=== PATIENT | female | born 1955 | race Caucasian/White ===

== ENCOUNTER 2016-09-21 11:06 | Outpatient (CLI) | payer MEDICARE, MEDICAID | END 2016-09-21 11:07 | disposition home or self-care (01) | DX: B00.1 Herpesviral vesicular dermatitis (principal) ==

== ENCOUNTER 2016-09-29 | Outpatient (CLI) | payer MEDICARE, MEDICAID | END 2016-09-29 16:32 | disposition critical access hospital (66) | CPT/HCPCS: A0425; A0427 ==

== ENCOUNTER 2016-09-29 16:35 | Emergency (ER) | payer MEDICARE, MEDICAID ==
[2016-09-29] MEDS ORDERED: SODIUM CHLORIDE 0.9% 1,000 ML IV ONE (16:40)
[2016-09-29] MEDS ORDERED: MECLIZINE 12.5 MG TABLET PO STA (16:41)
[2016-09-29] MEDS ORDERED: ONDANSETRON 4 MG/2 ML VIAL IVP STA (16:41)
[2016-09-29] MEDS ORDERED: ONDANSETRON 4 MG/2 ML VIAL ONE (16:43)
[2016-09-29] MEDS ORDERED: MECLIZINE 12.5 MG TABLET PO ONE (16:44)
== END 2016-09-29 18:24 | disposition home or self-care (01) ==
DX: R42 Dizziness and giddiness (principal); R03.0 Elevated blood-pressure reading, without diagnosis of hypertension
CPT/HCPCS: 36415; 80048; 85025; 96374; 99283; 99284; A9270

== ENCOUNTER 2016-11-23 14:48 | Emergency (ER) | payer MEDICARE, MEDICAID | END 2016-11-23 16:10 | disposition left against medical advice (07) | DX: R11.0 Nausea (principal); Z53.21 Procedure and treatment not carried out due to patient leaving prior to being seen by health care provider ==

== ENCOUNTER 2017-01-16 20:24 | Emergency (ER) | payer MEDICARE, MEDICAID ==
[2017-01-16] MEDS ORDERED: HYDROcod/ACETAM 5/325 MG TABLET PO STA (21:00)
--- NOTE | 2017-01-16 21:02 | ED Physician Documentation ---
PD HPI BACK INJURY - Stated complaint Stated Complaint: GLF/BACK PX - History obtained from History obtained from: Patient - History of Present Illness Location: Other (2 days ago she slipped and fell, hitting her back directly on the edge of the step and has persistent pain in the low back, especially on the left side. It is not radiating. 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 HEENT: Tonsil/Adenoidectomy - Present Medications Home Medications: Ambulatory Orders Medication Instructions Recorded Confirmed traZODone [Desyrel] 04/07/16 Antidepress 11/23/16 HYDROcod/ACETAM 5/325 [[place] 5/325] 1 - 2 ea PO Q6H PRN #15 tablet 01/16/17 - Allergies Allergies/Adverse Reactions: Allergies Allergy/AdvReac Type Severity Reaction Status Date / Time paroxetine HCl * [From Paxil] AdvReac Intermediate "like im Verified 01/16/17 20 :29 crawling out of my skin" escitalopram oxalate * AdvReac Unknown Verified 01/16/17 20:29 [From Lexapro] - Social History Does the pt smoke?: No Smoking Status: Never smoker Does the pt drink ETOH?: No Does the pt have substance abuse?: No - Immunizations Immunizations are current?: Yes - POLST Patient has POLST: No PD ED PE NORMAL - Vitals Vital signs reviewed: Yes - General General: Alert and oriented X 3, No acute distress - Abdomen Abdomen: Soft, Non tender - Back Back: Other (She has mild midline back tenderness, more so over the left paralumbar muscles. The patient has equal and normal patellar and Achilles reflexes bilaterally. Normal sensation in all areas of the legs. Patient denies saddle anesthesia. Normal strength in flexion and extension at the ankles, knees and flexion of the hips.) - Derm Derm: Normal color, No rash Results - Vitals Vitals: Vital Signs - 24 hr 01/16/17 20:26 Temperature 36.0 C L Heart Rate 84 Respiratory 22 Rate Blood Pressure 134/74 H O2 Saturation 94 Oxygen O2 Source Room air - Rads (name of study) L spine XR Radiology: EMP read contemporaneously (PRAMOD Remy) Departure - Departure Disposition: 01 Home, Self Care Clinical Impression: Lumbar contusion Qualifiers: Encounter type: initial encounter Qualified Code(s): S30.0XXA - Contusion of lower back and pelvis, initial encounter Condition: Good Record reviewed to determine appropriate education?: Yes Instructions: ED Contusion Back Prescriptions: HYDROcod/ACETAM 5/325 [[place] 5/325] 1 - 2 ea PO Q6H PRN #15 tablet PRN Reason: Pain Comments: Call your doctor to arrange a follow up appointment. Make the next available appointment. In the interim return anytime if worse or if new symptoms develop. Your blood pressure was elevated today on check in to the emergency department. This does not mean that you have hypertension, it is a common phenomenon to check into the emergency department and have elevated blood pressure. I recommend that you see your primary care physician within the week to have it rechecked when you're feeling better.
[2017-01-16] MEDS ORDERED: HYDROcod/ACETAM 5/325 MG TABLET ONE (21:14)
--- NOTE | 2017-01-16 21:30 | XRAY Preliminary Report ---
Exam: XR Lumbar Spine 2 View IMPRESSION: Mild degenerative changes. No evidence of acute fracture. [facility] SITE ID: [id number]
--- NOTE | 2017-01-16 21:33 | XRAY Report ---
EXAM: LUMBOSACRAL SPINE RADIOGRAPHY EXAM DATE: 01/16/2017 09:16 PM. CLINICAL HISTORY: Fall back pain. COMPARISONS: MRI 05/01/2010. TECHNIQUE: 3 views. FINDINGS: Alignment: Normal. No spondylolisthesis or scoliosis. Bones: Five vzo-vlf-gcxedir lumbar vertebral bodies are present. No fractures or bone lesions. Disks: Mild degenerative disk disease. Facets: Mild facet arthropathy. Sacroiliac Joints: Unremarkable. Soft Tissues: Normal. The visualized bowel gas pattern is normal. IMPRESSION: Mild degenerative changes. No evidence of acute fracture. [facility] Referring Provider Line: [phone] SITE ID: [id number]
[2017-01-16 21:55] VITALS: BP 128/75
== END 2017-01-16 21:54 | disposition home or self-care (01) ==
LOC: ED 20:24
DX: S30.0XXA Contusion of lower back and pelvis, initial encounter (principal); W01.198A Fall on same level from slipping, tripping and stumbling with subsequent striking against other object, initial encounter; R03.0 Elevated blood-pressure reading, without diagnosis of hypertension; Z87.11 Personal history of peptic ulcer disease; M19.90 Unspecified osteoarthritis, unspecified site
CPT/HCPCS: 72100; 99283; A9270

== ENCOUNTER 2017-03-09 21:26 | Emergency (ER) | payer MEDICARE, MEDICAID ==
--- NOTE | 2017-03-09 23:12 | ED Physician Documentation ---
PD HPI HEADACHE - Stated complaint Stated Complaint: HEADACHE - Chief complaint Chief Complaint: Neuro - History obtained from History obtained from: Patient - History of Present Illness Timing - onset: Yesterday Timing - onset during: Rest Timing - duration: Days Timing - details: Gradual onset, Still present, Waxing and waning, Still present in ED Pain level now: 8 Worst headache ever?: No: Worst headache ever? Location: Front, Back, Right Quality: Throbbing, Aching Associated symptoms: No: Fever, Stiff neck, Nausea, Vomiting, Weakness, Numbness , Syncope, Seizure, Eye pain, Vision changes, Other Improved by: Rest, Dark room Worsened by: Light, Noise Similar symptoms before: Diagnosis (has had similar headaches before, but she does not recall having the actual diagnosis of migraine heqdaches) Recently seen: Not recently seen Review of Systems Constitutional: denies: Fever Eyes: reports: Reviewed and negative Cardiac: reports: Reviewed and negative Respiratory: reports: Reviewed and negative GI: denies: Abdominal Pain, Abdominal Swelling, Nausea : denies: Dysuria, Frequency Neurologic: reports: Seizure, Headache. 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 HEENT: Tonsil/Adenoidectomy - Present Medications Home Medications: Ambulatory Orders Medication Instructions Recorded Confirmed traZODone [Desyrel] 50 mg PO DAILY 04/07/16 03/09/17 Antidepress 11/23/16 Butalbit/Acetamin/Caff/Codeine 1 each PO Q6HR PRN #14 capsule 03/10/17 [Ezrwip-Jahmgzuefll-Vwzx-Codein] - Allergies Allergies/Adverse Reactions: Allergies Allergy/AdvReac Type Severity Reaction Status Date / Time paroxetine HCl * [From Paxil] AdvReac Intermediate "like im Verified 01/16/17 20 :29 crawling out of my skin" escitalopram oxalate * AdvReac Unknown Verified 01/16/17 20:29 [From Lexapro] - Social History Does the pt smoke?: No Smoking Status: Never smoker Does the pt drink ETOH?: No Does the pt have substance abuse?: No - Immunizations Immunizations are current?: Yes - POLST Patient has POLST: No PD ED PE NORMAL - Vitals Vital signs reviewed: Yes - General General: Alert and oriented X 3, No acute distress, Well developed/nourished - HEENT HEENT: PERRL, EOMI, Moist mucous membranes - Neck Neck: Supple, no meningeal sign - Cardiac Cardiac: RRR, No murmur - Respiratory Respiratory: No respiratory distress, Clear bilaterally - Abdomen Abdomen: Soft, Non tender - Neuro Neuro: Alert and oriented X 3, live in companion 2-12 intact, No motor deficit, No sensory deficit, Normal speech GCS Score: 15 Results - Vitals Vitals: Oxygen O2 Source Room air - Rads (name of study) CT H Radiology: Prelim report reviewed, See rad report PD MEDICAL DECISION MAKING - ED course Complexity details: reviewed old records, reviewed results, re-evaluated patient , considered differential, d/w patient ED course: per previous visit for TALAMANTES, patient had good result with DHE. this was given to her in ED with subsequent resolution kf her headache. Departure - Departure Disposition: 01 Home, Self Care Clinical Impression: Headache Condition: Good Instructions: ED Cephalgia Unspecified Follow-Up: Gilberto Milner MD [Primary Care Provider] - Within 1 week Prescriptions: Butalbit/Acetamin/Caff/Codeine [Audvsm-Ywioiyrfmkp-Ezox-Codein] 1 each PO Q6HR PRN #14 capsule PRN Reason: Headache Discharge Date/Time: 03/10/17 01:25
[2017-03-09] MEDS ORDERED: ONDANSETRON ODT 4 MG TABLET TL STA (23:24)
[2017-03-09] MEDS ORDERED: DIHYDROERGOTAMINE 1 MG/ML AMP IM STA (23:24)
[2017-03-09] MEDS ORDERED: ONDANSETRON ODT 4 MG TABLET ONE (23:29)
[2017-03-09] MEDS ORDERED: DIHYDROERGOTAMINE 1 MG/ML AMP ONE (23:29)
[2017-03-09 23:40] VITALS: BP 136/83
== END 2017-03-10 01:25 | disposition home or self-care (01) ==
LOC: ED 21:26
DX: R51 Headache (principal); H53.149 Visual discomfort, unspecified
CPT/HCPCS: 96372; 99283; J1110; Q0162

== ENCOUNTER 2017-05-30 13:32 | Emergency (ER) | payer MEDICARE, MEDICAID ==
[2017-05-30 13:45] VITALS: BP 106/64
[2017-05-30] MEDS ORDERED: KETOROLAC 60 MG/2 ML VIAL IM STA (13:54)
--- NOTE | 2017-05-30 13:57 | ED Physician Documentation ---
PD HPI UPPER EXT INJURY - Stated complaint Stated Complaint: R ARM PX - Chief complaint Chief Complaint: Ext Problem - History obtained from History obtained from: Patient - History of Present Illness Location: Other (For the last 3-4 days without specific injury she has had pain , a shooting sharp pain of the right bicep that is worse if she bends her arm at the elbow. It is not associated with neck pain, chest pain, trouble breathing. There is no exertional component to it. 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 HEENT: Tonsil/Adenoidectomy - Present Medications Home Medications: Ambulatory Orders Medication Instructions Recorded Confirmed traZODone [Desyrel] 50 mg PO DAILY 04/07/16 05/30/17 Antidepress 11/23/16 Butalbit/Acetamin/Caff/Codeine 1 each PO Q6HR PRN #14 capsule 03/10/17 05/30/17 [Sesuja-Eygbifgfhxf-Yvmy-Codein] Cyclobenzaprine [Flexeril] 10 mg PO TID PRN #20 tablet 05/30/17 - Allergies Allergies/Adverse Reactions: Allergies Allergy/AdvReac Type Severity Reaction Status Date / Time paroxetine HCl * [From Paxil] AdvReac Intermediate "like im Verified 05/30/17 13 :45 crawling out of my skin" escitalopram oxalate * AdvReac Unknown Verified 05/30/17 13:45 [From Lexapro] - Social History Does the pt smoke?: No Smoking Status: Never smoker Does the pt drink ETOH?: No Does the pt have substance abuse?: No - Immunizations Immunizations are current?: Yes - POLST Patient has POLST: No PD ED PE NORMAL - Vitals Vital signs reviewed: Yes - General General: Alert and oriented X 3, No acute distress - Neck Neck: Supple, no meningeal sign, No bony TTP - Cardiac Cardiac: RRR, No murmur - Respiratory Respiratory: No respiratory distress, Clear bilaterally - Abdomen Abdomen: Non tender - Extremities Extremities: Other (Focal tenderness of the right bicep which is especially bad with forced extension of the right arm. 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 Normal radial pulses.) - Neuro Neuro: Alert and oriented X 3, Normal speech - Psych Psych: Normal mood, Normal affect Results - Vitals Vitals: Vital Signs - 24 hr 05/30/17 13:40 Temperature 36.1 C L Heart Rate 73 Respiratory 19 Rate Blood Pressure 106/64 O2 Saturation 98 Oxygen O2 Source Room air PD MEDICAL DECISION MAKING - ED course ED course: History and physical is very consistent consistent with right arm biceps strain. She is tender there and has pain with range of motion ruling out anginal equivalent etc. Departure - Departure Disposition: 01 Home, Self Care Clinical Impression: Strain of biceps muscle Qualifiers: Encounter type: initial encounter Laterality: right Qualified Code(s): S46.211A - Strain of muscle, fascia and tendon of other parts of biceps, right arm, initial encounter Condition: Good Record reviewed to determine appropriate education?: Yes Instructions: Strains Sprains Tx Prescriptions: Cyclobenzaprine [Flexeril] 10 mg PO TID PRN #20 tablet PRN Reason: Pain Comments: Follow-up with your doctor this week and discuss physical therapy if symptoms are persistent. Do not drink or drive while on the prescription muscle relaxer.
[2017-05-30] MEDS ORDERED: KETOROLAC 60 MG/2 ML VIAL ONE (14:03)
== END 2017-05-30 14:05 | disposition home or self-care (01) ==
LOC: ED 13:32
DX: S46.211A Strain of muscle, fascia and tendon of other parts of biceps, right arm, initial encounter (principal); X58.XXXA Exposure to other specified factors, initial encounter
CPT/HCPCS: 96372; 99283

== ENCOUNTER 2017-08-17 11:58 | Outpatient (CLI) | payer MEDICARE, MEDICAID ==
--- NOTE | 2017-08-18 15:30 | Mammography Report ---
DATE OF SERVICE: 08/17/2017 DIGITAL SCREENING MAMMOGRAM: 08/17/2017 CLINICAL INDICATION: A 62-year-old, for screening. COMPARISON: 10/2012, 02/2011, 06/2009. TECHNIQUE: Routine CC and MLO projections were obtained of the breasts. FINDINGS: The breasts demonstrate heterogeneously dense fibroglandular parenchyma bilaterally. Coarse and punctate, typically benign calcifications are present. Sebaceous cyst in the inner left breast is stable. No suspicious masses, clustered microcalcifications, or regions of architectural distortion are identified. IMPRESSION: BENIGN FINDINGS. RECOMMENDATION: ROUTINE ANNUAL SCREENING UNLESS OTHERWISE CLINICALLY INDICATED. BIRADS CATEGORY 2-BENIGN FINDINGS. STANDARD QUALIFYING STATEMENTS: 1. This examination was reviewed with the aid of Computer-Aided Detection (CAD). 2. A negative or benign imaging report should not delay biopsy if clinically suspicious findings are present. Consider surgical consultation if warranted. More than 5% of cancers are not identified by imaging. 3. Dense breasts may obscure an underlying neoplasm. TD: 08/18/2017 16:29
== END 2017-08-17 11:59 | disposition home or self-care (01) ==
LOC: DI.N 11:58
PROVIDERS: ATTEND Family Medicine
DX: Z12.31 Encounter for screening mammogram for malignant neoplasm of breast (principal)
CPT/HCPCS: 77067

== ENCOUNTER 2017-09-01 11:05 | Outpatient (CLI) | payer MEDICARE, MEDICAID | END 2017-09-01 11:06 | disposition home or self-care (01) | LOC: LAB.R 11:05 | PROVIDERS: ATTEND Physician Assistant Medical | DX: N39.0 Urinary tract infection, site not specified (principal) | CPT/HCPCS: 87086 ==

== ENCOUNTER 2017-09-05 08:03 | Emergency (ER) | payer MEDICARE, MEDICAID ==
[2017-09-05 08:40] LABS: BILIRUBIN,URINE NEGATIVE (NEGATIVE); GLUCOSE, URINE (UA) NEGATIVE (NEGATIVE); KETONES,URINE (UA) NEGATIVE (NEGATIVE); LEUKOCYTE ESTERASE, URINE TRACE (NEGATIVE); NITRITE,URINE NEGATIVE (NEGATIVE); OCCULT BLOOD,URINE NEGATIVE (NEGATIVE); PROTEIN,URINE NEGATIVE (NEGATIVE); UROBILINOGEN,URINE 0.2 (NORMAL) E.U./dL (NORMAL)
[2017-09-05 08:43] LABS: CLARITY,URINE HAZY (CLEAR)
[2017-09-05 08:58] LABS: BACTERIA,URINE Moderate /HPF (None Seen); RBC,URINE 0-5 /HPF (0-5); SQUAMOUS EPITHELIAL CELL,UR FEW Squamous (<= Few)
--- NOTE | 2017-09-05 09:09 | ED Physician Documentation ---
History of Present Illness - Stated complaint Stated Complaint: FEMALE - Chief complaint Chief Complaint: Abd Pain - Additonal information Additional information: hx from pt 62 female to ER for vaginal pain X approx 1 week no fever chills no NV no dysuria no vag bleed or dc prior lap but not a hyst states seen in clinic and dx with UTI and on macrobid and pyridium but not better no UA culture found in [place] pt states no pelvic exam in clinic Review of Systems Constitutional: denies: Fever, Chills Cardiac: denies: Chest pain / pressure Respiratory: denies: Dyspnea GI: denies: Abdominal Pain : denies: Dysuria, Discharge, Vaginal bleeding Immunocompromised: denies: Immunocompromised PD PAST MEDICAL HISTORY - Past Medical History Past Medical History: Yes Cardiovascular: None Respiratory: Pneumonia Neuro: Headache/migraine Endocrine/Autoimmune: None GI: Ulcers : None HEENT: None Psych: Depression, Anxiety Musculoskeletal: Osteoarthritis Derm: None - Past Surgical History Past Surgical History: Yes General: Other 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 HEENT: Tonsil/Adenoidectomy - Present Medications Home Medications: Ambulatory Orders Medication Instructions Recorded Confirmed Antidepress 11/23/16 Butalbit/Acetamin/Caff/Codeine 1 each PO Q6HR PRN #14 capsule 03/10/17 05/30/17 [Mdcdep-Oeibeofvtmp-Nbdi-Codein] Cyclobenzaprine [Flexeril] 10 mg PO TID PRN #20 tablet 05/30/17 metroNIDAZOLE 0.75% GEL 5 gm PV QPM #5 tube 09/05/17 - Allergies Allergies/Adverse Reactions: Allergies Allergy/AdvReac Type Severity Reaction Status Date / Time paroxetine HCl * [From Paxil] AdvReac Intermediate "like im Verified 09/05/17 08 :13 crawling out of my skin" escitalopram oxalate * AdvReac Unknown Verified 09/05/17 08:13 [From Lexapro] - Social History Does the pt smoke?: No Smoking Status: Never smoker Does the pt drink ETOH?: No Does the pt have substance abuse?: No - Immunizations Immunizations are current?: Yes - POLST Patient has POLST: No PD ED PE NORMAL - Vitals Vital signs reviewed: Yes - Cardiac Cardiac: RRR - Respiratory Respiratory: No respiratory distress, Clear bilaterally - Abdomen Abdomen: Soft, Non tender - Female 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 : 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), Other (white foamy dc, cervical erythema + CMT, diff to palp ovaries 2/2 habitus but no mass appreciated) - Neuro Neuro: Alert and oriented X 3 Results - Vitals Vitals: Vital Signs - 24 hr 09/05/17 09/05/17 08:07 11:40 Temperature 36.4 C L 36.2 C L Heart Rate 81 85 Respiratory 16 20 Rate Blood Pressure 112/73 136/77 H O2 Saturation 96 97 Oxygen O2 Source Room air - Labs Labs: Laboratory Tests 09/05/17 08:34 Urine Color YELLOW Urine Clarity HAZY Urine pH 6.0 Ur Specific [place] 1.025 Urine Protein NEGATIVE Urine Glucose (UA) NEGATIVE Urine Ketones NEGATIVE Urine Occult Blood NEGATIVE Urine Nitrite NEGATIVE Urine Bilirubin NEGATIVE Urine Urobilinogen 0.2 (NORMAL) Ur Leukocyte Esterase TRACE H Urine RBC 0-5 Urine WBC 6-10 H Ur Squamous Epith Cells FEW Squamous Urine Bacteria Moderate H Ur Microscopic Review INDICATED Urine Culture Comments INDICATED Departure - Departure Disposition: 01 Home, Self Care Clinical Impression: Cervicitis Condition: Good Instructions: ED VD Cervicitis Treated Follow-Up: Daryl Rosenthal PA-C [Primary Care Provider] - Prescriptions: metroNIDAZOLE 0.75% GEL 5 gm PV QPM #5 tube Comments: Follow up at your clinic or Wednesday for a recheck and to review culture results If you vaginal pain persists after antibiotics you may need to have an ultrasound - your PMD can order that test
[2017-09-05] MEDS ORDERED: cefTRIAXone 250 MG VIAL IM STA (12:42)
[2017-09-05] MEDS ORDERED: AZITHROMYCIN 250 MG TABLET PO STA (12:42)
[2017-09-05] MEDS ORDERED: LIDOCAINE 1% 2 ML VIAL SUBQ ONE (12:42)
[2017-09-05 13:13] VITALS: BP 118/91
== END 2017-09-05 13:18 | disposition home or self-care (01) ==
LOC: ED 08:03
DX: N72 Inflammatory disease of cervix uteri (principal); M19.90 Unspecified osteoarthritis, unspecified site; Z87.11 Personal history of peptic ulcer disease
CPT/HCPCS: 81001; 87086; 87210; 87491; 87591; 96372; 99283; A9270; 81003

== ENCOUNTER 2017-09-16 10:21 | Outpatient (CLI) | payer MEDICARE, MEDICAID ==
[2017-09-16 15:31] LABS: BILIRUBIN,URINE NEGATIVE (NEGATIVE); GLUCOSE, URINE (UA) NEGATIVE (NEGATIVE); KETONES,URINE (UA) NEGATIVE (NEGATIVE); LEUKOCYTE ESTERASE, URINE SMALL (NEGATIVE); NITRITE,URINE POSITIVE (NEGATIVE); OCCULT BLOOD,URINE NEGATIVE (NEGATIVE); PROTEIN,URINE NEGATIVE (NEGATIVE); UROBILINOGEN,URINE 0.2 (NORMAL) E.U./dL (NORMAL)
[2017-09-16 15:39] LABS: CLARITY,URINE CLOUDY (CLEAR)
[2017-09-16 15:51] LABS: RBC,URINE 0-5 /HPF (0-5); SQUAMOUS EPITHELIAL CELL,UR MANY Squamous (<= Few)
[2017-09-16 15:52] LABS: BACTERIA,URINE Many /HPF (None Seen); EPITHELIAL CELLS,UR FEW Transitional /HPF (<= Few)
== END 2017-09-16 10:22 | disposition home or self-care (01) ==
LOC: LAB.R 10:21
PROVIDERS: ATTEND Family Medicine
DX: N39.0 Urinary tract infection, site not specified (principal)
CPT/HCPCS: 81001; 81003; 87086

== ENCOUNTER 2017-11-12 09:11 | Outpatient (CLI) | payer MEDICARE, MEDICAID ==
[2017-11-16 12:17] LABS: HSV 1 IGG TYPE SPECIFIC AB 4.52 index; HSV 2 IGG TYPE SPECIFIC AB 9.33 index
== END 2017-11-12 09:12 | disposition home or self-care (01) ==
LOC: LAB.N 09:11
PROVIDERS: ATTEND Nurse Practitioner Gerontology
DX: Z11.3 Encounter for screening for infections with a predominantly sexual mode of transmission (principal)
CPT/HCPCS: 36415; 81599; 86592; 86695; 86696

== ENCOUNTER 2018-02-13 15:06 | Emergency (ER) | payer MEDICARE, MEDICAID ==
[2018-02-13] MEDS ORDERED: DIHYDROERGOTAMINE 1 MG/ML AMP IM STA (17:08)
--- NOTE | 2018-02-13 17:11 | ED Physician Documentation ---
PD HPI HEADACHE - Stated complaint Stated Complaint: HEADACHE - Chief complaint Chief Complaint: Neuro - History obtained from History obtained from: Patient - History of Present Illness Timing - onset: How many days ago (2) Timing - onset during: Rest Timing - duration: Days (2) Timing - details: Gradual onset Pain level max: 8 Pain level now: 8 Location: Front Quality: Throbbing, Aching Associated symptoms: Nausea. No: Fever, Stiff neck, Vomiting, Weakness, Numbness, Syncope, Seizure, Eye pain, Vision changes Improved by: Rest, Dark room Worsened by: Light, Noise Similar symptoms before: Diagnosis (migraines) Recently seen: Not recently seen Review of Systems Constitutional: denies: Fever, Chills Eyes: reports: Photophobia Ears: denies: Ear pain Nose: denies: Rhinorrhea / runny nose, Congestion Throat: denies: Sore throat Cardiac: denies: Chest pain / pressure Respiratory: denies: Cough Skin: denies: Rash Musculoskeletal: denies: Neck pain, Back pain Neurologic: reports: Headache. 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: Tonsil/Adenoidectomy - Present Medications Home Medications: Ambulatory Orders Medication Instructions Recorded Confirmed No Known Home Medications [No 02/13/18 02/13/18 Known Home Medications] - Allergies Allergies/Adverse Reactions: Allergies Allergy/AdvReac Type Severity Reaction Status Date / Time paroxetine HCl * [From Paxil] AdvReac Intermediate "like im Verified 02/13/18 15 :15 crawling out of my skin" escitalopram oxalate * AdvReac Unknown Verified 02/13/18 15:15 [From Lexapro] - Social History Does the pt smoke?: No Smoking Status: Never smoker Does the pt drink ETOH?: No Does the pt have substance abuse?: No - Immunizations Immunizations are current?: Yes - POLST Patient has POLST: No PD ED PE NORMAL - Vitals Vital signs reviewed: Yes - General General: Alert and oriented X 3 - HEENT HEENT: Atraumatic, PERRL, EOMI, Ears normal, Moist mucous membranes, Pharynx benign - Neck Neck: Supple, no meningeal sign - Cardiac Cardiac: RRR - Respiratory Respiratory: No respiratory distress, Clear bilaterally - Abdomen Abdomen: Soft, Non tender, Non distended - Derm Derm: Warm and dry - Neuro Neuro: Alert and oriented X 3, 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 She was given DHE and her headache resolved. This is common for her. No evidence of subarachnoid hemorrhage, tumor, mass. Patient counseled regarding signs and symptoms for which I believe and urgent re-evaluation would be necessary. Patient with good understanding of and agreement to plan and is comfortable going home at this time This document was made in part using voice recognition software. While efforts are made to proofread this document, sound alike and grammatical errors may occur. - Sepsis Event Vital Signs: Vital Signs - 24 hr 02/13/18 02/13/18 15:14 17:29 Temperature 36.4 C L Heart Rate 72 70 Respiratory 15 16 Rate Blood Pressure 114/65 122/77 O2 Saturation 92 96 Oxygen O2 Source Room air Departure - Departure Disposition: 01 Home, Self Care Clinical Impression: Migraine Qualifiers: Migraine type: unspecified Status migrainosus presence: without status migrainosus Intractability: not intractable Qualified Code(s): G43.909 - Migraine, unspecified, not intractable, without status migrainosus Condition: Good Instructions: ED Headache Migraine Follow-Up: Gilberto Milner MD [Primary Care Provider] - Within 1 week Comments: Return if you worsen. Discharge Date/Time: 02/13/18 17:58
[2018-02-13 17:30] VITALS: BP 122/77
== END 2018-02-13 17:58 | disposition home or self-care (01) ==
LOC: ED 15:06
DX: G43.909 Migraine, unspecified, not intractable, without status migrainosus (principal)
CPT/HCPCS: 96372; 99282; 99283; J1110

== ENCOUNTER 2018-02-23 21:46 | Outpatient (CLI) | payer MEDICARE, MEDICAID ==
--- NOTE | 2018-02-23 23:49 | Ultrasound Report ---
Procedure Date: 02/23/2018 Accession Number: [id number] / [id number] Procedure: US - Abdomen Limited CPT Code: FULL RESULT: EXAM: ABDOMEN ULTRASOUND LIMITED EXAM DATE: 02/23/2018 11:04 PM. CLINICAL HISTORY: Abdominal pain, left upper quadrant. COMPARISON: None. TECHNIQUE: Real-time scanning was performed with static images obtained. FINDINGS: The spleen is normal, measuring 9.2 cm in maximal length. Left kidney measures 11 cm in length. A few left renal peripelvic cysts are noted, versus nonspecific calyceal dilation. Extrarenal left-sided pelvis is noted. No definite kidney stone. No hydronephrosis or contour deforming renal mass noted. At the patient reported area of pain within the anterior to left lower rib cage region, there is a palpable area of bulging. However, no underlying sonographic abnormality demonstrated. IMPRESSION: No acute left upper quadrant abnormality seen to account for pain. Please see discussion above. [facility]
== END 2018-02-23 21:47 | disposition home or self-care (01) ==
LOC: DI 21:46
PROVIDERS: ATTEND Family Medicine
DX: R10.12 Left upper quadrant pain (principal)
CPT/HCPCS: 76705

== ENCOUNTER 2018-02-23 21:50 | Outpatient (CLI) | payer MEDICARE, MEDICAID ==
[2018-02-23 22:02] LABS: BASOPHILS % (AUTO) 0.5 %; EOSINOPHILS # (AUTO) 0.2 10^3/uL (0.0-0.7); EOSINOPHILS % (AUTO) 2.4 %; HGB - HEMOGLOBIN 14.3 g/dL (12.0-16.0); LYMPHOCYTES # (AUTO) 4.3 10^3/uL (1.5-3.5); LYMPHOCYTES % (AUTO) 50.3 %; MEAN CORPUSCULAR HEMOGLOBIN 29.9 pg (27.0-31.0); MEAN CORPUSCULAR HGB CONC 33.3 g/dL (32.0-36.0); MEAN CORPUSCULAR VOLUME 89.7 fL (81.0-99.0); MEAN PLATELET VOLUME 8.1 fL (7.9-10.8); MONOCYTES # (AUTO) 0.6 10^3/uL (0.0-1.0); NEUTROPHILS # (AUTO) 3.4 10^3/uL (1.5-6.6); NEUTROPHILS % (AUTO) 39.8 %; PLT - PLATELET COUNT 264 10^3/uL (130-450); RED BLOOD COUNT 4.77 10^6/uL (4.20-5.40); RED CELL DISTRIBUTION WIDTH 14.2 % (12.0-15.0); WHITE BLOOD COUNT 8.6 x10^3/uL (4.8-10.8)
[2018-02-23 22:14] LABS: ALBUMIN 3.9 g/dL (3.2-5.5); ALBUMIN/GLOBULIN RATIO 0.9 (1.0-2.2); BILIRUBIN,TOTAL 0.9 mg/dL (0.2-1.0); CALCIUM 9.1 mg/dL (8.5-10.3); CREATININE 0.8 mg/dL (0.4-1.0); TOTAL PROTEIN 8.1 g/dL (6.7-8.2)
== END 2018-02-23 21:51 | disposition home or self-care (01) ==
LOC: LAB 21:50
PROVIDERS: ATTEND Family Medicine
DX: R10.12 Left upper quadrant pain (principal)
CPT/HCPCS: 36415; 80053; 83690; 85025; 85651

== ENCOUNTER → 2018-02-24 | Outpatient (CLI) | payer MEDICARE, MEDICAID | LOC: RT.N 13:38 | PROVIDERS: ATTEND Family Medicine | DX: R10.12 Left upper quadrant pain (principal) | CPT/HCPCS: 93005 ==

== ENCOUNTER 2018-05-10 08:00 | Outpatient (CLI) | payer MEDICARE, MEDICAID | END 2018-05-10 08:01 | disposition home or self-care (01) | LOC: LAB.R 08:00 | PROVIDERS: ATTEND Obstetrics & Gynecology | DX: B37.3 Candidiasis of vulva and vagina (principal) | CPT/HCPCS: 87480; 87510; 87660 ==

== ENCOUNTER 2018-05-18 13:08 | Outpatient (CLI) | payer MEDICARE, MEDICAID ==
[2018-05-18 14:09] LABS: HEMOGLOBIN A1C 0.56 g/dL; HEMOGLOBIN A1C % 5.6 % (4.6-6.2)
[2018-05-19 10:57] LABS: HEPATITIS C ANTIBODY NON-REACTIVE (NON-REACTIVE)
[2018-05-19 10:58] LABS: HEPATITIS B SURFACE ANTIGEN NON-REACTIVE (NON-REACTIVE)
== END 2018-05-18 13:09 | disposition home or self-care (01) ==
LOC: LAB 13:08
PROVIDERS: ATTEND Obstetrics & Gynecology
DX: Z13.1 Encounter for screening for diabetes mellitus (principal); Z11.3 Encounter for screening for infections with a predominantly sexual mode of transmission
CPT/HCPCS: 36415; 81599; 83036; 86592; 86803; 87340

== ENCOUNTER 2018-10-07 08:00 | Outpatient (CLI) | payer MEDICARE, MEDICAID | END 2018-10-07 23:59 | disposition home or self-care (01) | LOC: LAB.R 08:00 | PROVIDERS: ATTEND Family Medicine | DX: N89.8 Other specified noninflammatory disorders of vagina (principal) | CPT/HCPCS: 87480; 87510; 87660 ==

== ENCOUNTER 2019-01-14 12:41 | Emergency (ER) | payer MEDICARE, MEDICAID ==
[2019-01-14] MEDS ORDERED: DIHYDROERGOTAMINE 1 MG/ML AMP IM STA (12:51)
--- NOTE | 2019-01-14 12:52 | ED Physician Documentation ---
PD HPI HEADACHE - Stated complaint Stated Complaint: HEADACHE - Chief complaint Chief Complaint: Neuro - History obtained from History obtained from: Patient - History of Present Illness Timing - onset: Other (This is a 63-year-old woman with history of migraines. The last week she has had on and off frontal headaches that are similar in location and quality to prior migraines. They are gradual in onset. Coming and going. Jcxw-ljj-iljkpzh medications do help but that it comes back later. She has not taken any prescriptions for it. She denies fevers, chills, neck stiffness. 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: No - Immunizations Immunizations are current?: Yes - POLST Patient has POLST: No PD ED PE NORMAL - Vitals Vital signs reviewed: Yes - General General: Alert and oriented X 3, Other (Slightly uncomfortable) - HEENT HEENT: PERRL, EOMI - Neck Neck: Supple, no meningeal sign, No bony TTP - Neuro Neuro: Alert and oriented X 3, transportation associate 2-12 intact, No motor deficit, No sensory deficit, Normal speech - Psych Psych: Normal mood, Normal affect Results - Vitals Vitals: Vital Signs - 24 hr 01/14/19 01/14/19 12:44 14:00 Temperature 36.4 C L 36.2 C L Heart Rate 80 59 L Respiratory 18 12 Rate Blood Pressure 144/92 H 142/83 H O2 Saturation 97 96 Oxygen O2 Source Room air PD MEDICAL DECISION MAKING - ED course ED course: 63-year-old woman with migraine headache similar to prior but has been ongoing for 7 days on and off despite rplm-[id number] medications. The headache is gradual in onset and similar to prior headaches. As such I doubt subarachnoid hemorrhage. There are no infectious symptoms such as fever or stiff neck to make me suspect meningitis. No carbon monoxide exposure by history. She was initially treated with IM DHE which she is had in the past with relief, she did not have relief with that this time, potentially because is been going on so long. Subsequent to that she was treated with IV Reglan, Benadryl, Toradol, and dexamethasone with complete relief. Departure - Departure Disposition: 01 Home, Self Care Clinical Impression: Migraine Qualifiers: Migraine type: without aura Status migrainosus presence: with status migrainosus Intractability: not intractable Qualified Code(s): G43.001 - Migraine without aura, not intractable, with status migrainosus Condition: Good Record reviewed to determine appropriate education?: Yes Instructions: ED Headache Migraine Comments: Call your doctor to arrange a follow-up appointment, make the next available appointment. In the interim, return anytime if worse or if new symptoms develop.
[2019-01-14] MEDS ORDERED: METOCLOPRAMIDE 10 MG/2 ML VIAL IVP STA (13:31)
[2019-01-14] MEDS ORDERED: KETOROLAC 30 MG/ML VIAL IVP STA (13:31)
[2019-01-14] MEDS ORDERED: diphenhydrAMINE INJ 50 MG/ML VIAL IVP STA (13:31)
[2019-01-14] MEDS ORDERED: DEXAMETHASONE 10 MG/ML VIAL IVP STA (13:31)
[2019-01-14] MEDS ORDERED: SODIUM CHLORIDE 0.9% 1,000 ML IV ONE (13:31)
[2019-01-14 15:08] VITALS: BP 120/90
== END 2019-01-14 15:09 | disposition home or self-care (01) ==
LOC: ED 12:41
DX: G43.001 Migraine without aura, not intractable, with status migrainosus (principal)
CPT/HCPCS: 96374; 96375; 96376; 99283; 99284; J1110; J1200; J2765

== ENCOUNTER 2019-03-08 08:00 | Outpatient (CLI) | payer MEDICARE, MEDICAID ==
[2019-03-08 18:45] LABS: BASOPHILS % (AUTO) 0.6 %; EOSINOPHILS # (AUTO) 0.3 10^3/uL (0.0-0.7); EOSINOPHILS % (AUTO) 4.1 %; HGB - HEMOGLOBIN 13.7 g/dL (12.0-16.0); LYMPHOCYTES # (AUTO) 2.5 10^3/uL (1.5-3.5); LYMPHOCYTES % (AUTO) 38.8 %; MEAN CORPUSCULAR HEMOGLOBIN 29.2 pg (27.0-31.0); MEAN CORPUSCULAR HGB CONC 32.2 g/dL (32.0-36.0); MEAN CORPUSCULAR VOLUME 90.6 fL (81.0-99.0); MEAN PLATELET VOLUME 10.7 fL (7.9-10.8); MONOCYTES # (AUTO) 0.4 10^3/uL (0.0-1.0); MONOCYTES % (AUTO) 6.1 %; NEUTROPHILS # (AUTO) 3.2 10^3/uL (1.5-6.6); NEUTROPHILS % (AUTO) 50.2 %; PLT - PLATELET COUNT 272 10^3/uL (130-450); RED BLOOD COUNT 4.69 10^6/uL (4.20-5.40); RED CELL DISTRIBUTION WIDTH 14.7 % (12.0-15.0); WHITE BLOOD COUNT 6.4 x10^3/uL (4.8-10.8)
[2019-03-08 19:05] LABS: ALBUMIN 3.9 g/dL (3.2-5.5); ALBUMIN/GLOBULIN RATIO 1.1 (1.0-2.2); BILIRUBIN,TOTAL 0.6 mg/dL (0.2-1.0); CALCIUM 8.9 mg/dL (8.5-10.3); CREATININE 0.7 mg/dL (0.4-1.0); TOTAL PROTEIN 7.4 g/dL (6.7-8.2)
== END 2019-03-08 08:01 | disposition home or self-care (01) ==
LOC: LAB.N 08:00
PROVIDERS: ATTEND Family Medicine
DX: R10.13 Epigastric pain (principal)
CPT/HCPCS: 36415; 80053; 82150; 83690; 85025

== ENCOUNTER 2019-03-09 15:36 | Outpatient (CLI) | payer MEDICARE, MEDICAID ==
--- NOTE | 2019-03-10 13:55 | XRAY Report ---
Reason: EPIGASTRIC DISCOMFORT Procedure Date: 03/09/2019 Accession Number: [id number] / [id number] Procedure: XR - Abdomen Acute CPT Code: FULL RESULT: EXAM: ABDOMINAL SERIES AND PA CHEST EXAM DATE: 03/09/2019 04:11 PM. CLINICAL HISTORY: Epigastric discomfort. COMPARISON: XR CHEST PA AND LAT 09/01/2012 10:11 AM. TECHNIQUE: 2 views abdomen and 1 view chest. FINDINGS: CHEST: Lungs/Pleura: Linear scarring in the left mid lung. No consolidation. No pneumothorax. Mediastinum: Heart size upper normal. Aorta is tortuous. ABDOMEN: Bowel Gas Pattern: Mild gaseous distention of small bowel and colon. No portal venous gas or pneumatosis. Small volume of stool in the colon. Free Air: None. Other: Degenerative changes. Sclerotic focus in the right humeral head is unchanged. No intra-abdominal calcifications. IMPRESSION: 1. No acute disease in the chest. 2. No bowel obstruction. 3. No free air. RADIA
== END 2019-03-09 15:37 | disposition home or self-care (01) ==
LOC: DI 15:36
PROVIDERS: ATTEND Family Medicine
DX: R10.13 Epigastric pain (principal)
CPT/HCPCS: 74022

== ENCOUNTER 2019-03-14 08:00 | Outpatient (CLI) | payer MEDICARE, MEDICAID | END 2019-03-14 23:59 | disposition home or self-care (01) | LOC: LAB.R 08:00 | PROVIDERS: ATTEND Family Medicine | DX: R10.13 Epigastric pain (principal) | CPT/HCPCS: 81599; 87338; 87493 ==

== ENCOUNTER 2019-04-14 14:23 | Outpatient (CLI) | payer MEDICARE, MEDICAID ==
--- NOTE | 2019-04-17 14:03 | Ultrasound Report ---
Reason: ABDOMINAL DISCOMFORT Procedure Date: 04/14/2019 Accession Number: [id number] / [id number] Procedure: US - Abdomen Complete CPT Code: FULL RESULT: EXAM: ABDOMEN ULTRASOUND EXAM DATE: 04/14/2019 03:15 PM. CLINICAL HISTORY: Abdominal discomfort. COMPARISON: None. TECHNIQUE: Real-time scanning was performed with static images obtained. FINDINGS: Liver: Normal in size and echotexture. 13.6 cm. Main portal vein flow: Hepatopetal. Gallbladder: There are small mobile gallbladder stones without wall thickening, or sonographic Mccall's sign. Biliary System: Common bile duct measures 4.7 mm. No intrahepatic or extrahepatic ductal dilatation. Pancreas: Visualized portion of the pancreatic body demonstrated slight dilatation of the main pancreatic duct, 3.2 mm without other associated abnormal findings. Kidneys: Right: 10.7 cm longitudinally. No contour-deforming mass, stones, or hydronephrosis. Left: 10.9 cm longitudinally. There is a slight shadowing echogenic nodule in the upper renal pelvis, 8 mm. There is dilated left renal pelvis to 1.7 cm without visualized filling defect. There is cortical indentation in the upper mid lateral cortex, likely a scarring process or a normal variation. No contour-deforming mass. Spleen: 9.3 cm. Normal in size and echotexture. Aorta and Inferior Vena Cava: Unremarkable. Other: None. IMPRESSION: 1. A left intrarenal stone, 8 mm, also mild/moderate left hydroureter without visualized filling defect, uncertain etiology, recommend continued renal ultrasound follow-up or further assessment by CT KUB. 2. Small cholelithiasis without cholecystitis or bile duct dilatation. 3. Mild dilatation of the main pancreatic duct in the visualized pancreatic body, limited further characterization due to technique; if clinically warranted, further assessment by abdominal CT would be helpful. RADIA
== END 2019-04-14 14:24 | disposition home or self-care (01) ==
LOC: DI 14:23
PROVIDERS: ATTEND Family Medicine
DX: N20.0 Calculus of kidney (principal); N13.4 Hydroureter; K80.20 Calculus of gallbladder without cholecystitis without obstruction; K86.89 Other specified diseases of pancreas
CPT/HCPCS: 76700

== ENCOUNTER 2019-04-20 16:23 | Emergency (ER) | payer MEDICARE, MEDICAID ==
[2019-04-20] MEDS ORDERED: SODIUM CHLORIDE 0.9% 1,000 ML IV ONE (16:35)
[2019-04-20] MEDS ORDERED: ONDANSETRON 4 MG/2 ML VIAL IVP STA (16:35)
[2019-04-20] MEDS ORDERED: HYDROmorphone 1 MG/ML CARPUJECT IVP STA (16:35)
[2019-04-20] MEDS ORDERED: KETOROLAC 30 MG/ML VIAL IVP STA (16:35)
--- NOTE | 2019-04-20 16:35 | ED Physician Documentation ---
PD HPI ABD PAIN - Stated complaint Stated Complaint: ABD PX - Chief complaint Chief Complaint: Abd Pain - History obtained from History obtained from: Patient - History of Present Illness Timing - onset: Other (64-year-old has had about a week's worth of right-sided abdominal pain. She was seen in the office and had a large right nephrolith and hydronephrosis. Pain is worse today and radiates down to the right hip. She did not receive any pain medication so far but she did receive Zofran for the nausea. She is nauseous but has not vomited. She has a history of exploratory laparotomy as a child with an incidental appendectomy. 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: 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/Adenoidectomy - Present Medications Home Medications: Ambulatory Orders Medication Instructions Recorded Confirmed Ciprofloxacin HCl [Cipro] 500 mg PO BID #20 tablet 04/20/19 Hydrocodone/Acetaminophen 1 - 2 each PO Q6H PRN #14 tablet 04/20/19 [Hydrocodon-Acetaminophen 5-325] Ondansetron Odt [Zofran] 4 mg TL Q6H PRN #10 tablet 04/20/19 - Allergies Allergies/Adverse Reactions: Allergies Allergy/AdvReac Type Severity Reaction Status Date / Time paroxetine HCl * [From Paxil] AdvReac Intermediate "like im Verified 07/15/18 17:49 crawling out of my skin" escitalopram oxalate * AdvReac Unknown Verified 01/14/19 12:45 [From Lexapro] - Social History Does the pt smoke?: No Smoking Status: Never smoker Does the pt drink ETOH?: No Does the pt have substance abuse?: No - Immunizations Immunizations are current?: Yes - POLST Patient has POLST: No PD ED PE NORMAL - Vitals Vital signs reviewed: Yes - General General: Alert and oriented X 3, No acute distress - HEENT HEENT: PERRL, EOMI - Neck Neck: Supple, no meningeal sign, No bony TTP - Cardiac Cardiac: RRR, No murmur - Respiratory Respiratory: No respiratory distress, Clear bilaterally - Abdomen Abdomen: Normal bowel sounds, Soft, Other (She appears uncomfortable, there is very mild right sided abdominal and flank tenderness without surgical signs.) - Back Back: No spinal TTP - Derm Derm: Normal color, Warm and dry - Extremities Extremities: No edema, No calf tenderness / cord - Neuro Neuro: Alert and oriented X 3, Normal speech Results - Vitals Vitals: Vital Signs - 24 hr 04/20/19 16:28 Temperature 36.3 C L Heart Rate 74 Respiratory 16 Rate Blood Pressure 144/83 H O2 Saturation 98 Oxygen O2 Source Room air - Labs Labs: Laboratory Tests 04/20/19 04/20/19 04/20/19 16:50 16:50 18:09 WBC 8.6 RBC 4.79 Hgb 14.2 Hct 43.2 MCV 90.2 MCH 29.6 MCHC 32.9 RDW 14.3 Plt Count 286 MPV 10.2 Neut # (Auto) 4.3 Lymph # (Auto) 3.3 [place] # (Auto) 0.6 Eos # (Auto) 0.4 Baso # (Auto) 0.1 Absolute Nucleated RBC 0.00 Nucleated RBC % 0.0 Sodium 139 Potassium 3.8 Chloride 100 L Carbon Dioxide 29 Anion Gap 10.0 BUN 14 Creatinine 0.7 Estimated GFR (MDRD) 84 L Glucose 100 Calcium 8.9 Total Bilirubin 0.5 AST 34 ALT 39 Alkaline Phosphatase 81 Total Protein 7.8 Albumin 3.9 Globulin 3.9 Albumin/Globulin Ratio 1.0 Lipase 138 H Urine Color YELLOW Urine Clarity HAZY Urine pH 6.0 Ur Specific [place] 1.025 Urine Protein NEGATIVE Urine Glucose (UA) NEGATIVE Urine Ketones NEGATIVE Urine Occult Blood TRACE-INTA Urine Nitrite POSITIVE H Urine Bilirubin NEGATIVE Urine Urobilinogen 0.2 (NORMAL) Ur Leukocyte Esterase NEGATIVE Urine RBC None Seen Urine WBC 0-3 Ur Squamous Epith Cells RARE Squamous Urine Bacteria Moderate H Ur Microscopic Review INDICATED Urine Culture Comments INDICATED - Rads (name of study) Ct A/P Radiology: EMP read contemporaneously (Duplicated left collecting system was 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 No obstructing calculi. Couple of nonobstructing left upper calculi measuring up to 4 mm. No right renal calculi or hydronephrosis. Appendix is unremarkable.) PD MEDICAL DECISION MAKING - ED course Complexity details: reviewed old records (Abd ultrasound from 6 days ago reviewed, left infrarenal stone 8 mm with mild to moderate left hydroureter. Recommend follow-up. Small cholelithiasis without cholecystitis. Mild dilatation of the main pancreatic duct) ED course: Based on her work-up today it seems likely that her issues right now are related to right-sided pyelonephritis. Of note she has an abnormal collecting system on the left, but she has no symptoms on the left, so I do not think that it is causative or relevant for today's issues. She felt better after pain medications. Departure - Departure Disposition: 01 Home, Self Care Clinical Impression: Pyelonephritis Condition: Good Record reviewed to determine appropriate education?: Yes Instructions: Pyelonephritis Dc Prescriptions: Ciprofloxacin HCl [Cipro] 500 mg PO BID #20 tablet Hydrocodone/Acetaminophen [Hydrocodon-Acetaminophen 5-325] 1 - 2 each PO Q6H PRN #14 tablet PRN Reason: pain Ondansetron Odt [Zofran] 4 mg TL Q6H PRN #10 tablet PRN Reason: Nausea / Vomiting Comments: THE PREVISOULY SEEN GALLSTONES ARE PROBABLY NOT CAUSING YOUR PAIN BASED ON THE LOCATION. THE CAUSE TODAY IS A KIDBEY INFECTION FOR WHICH WE ARE GIVING YOU ANTIBIOTICS. YOU HAVE A DUPLICATED COLLECTING SYSTEM ON THE LEFT, THE OTHER SIDE, TALK WITH DR PEREZ ABOUT A UROLOGY REFERRAL. RETURN IF WORSE.
[2019-04-20 16:58] LABS: BASOPHILS # (AUTO) 0.1 10^3/uL (0.0-0.1); BASOPHILS % (AUTO) 0.6 %; EOSINOPHILS # (AUTO) 0.4 10^3/uL (0.0-0.7); EOSINOPHILS % (AUTO) 4.1 %; HGB - HEMOGLOBIN 14.2 g/dL (12.0-16.0); LYMPHOCYTES # (AUTO) 3.3 10^3/uL (1.5-3.5); LYMPHOCYTES % (AUTO) 37.8 %; MEAN CORPUSCULAR HEMOGLOBIN 29.6 pg (27.0-31.0); MEAN CORPUSCULAR HGB CONC 32.9 g/dL (32.0-36.0); MEAN CORPUSCULAR VOLUME 90.2 fL (81.0-99.0); MEAN PLATELET VOLUME 10.2 fL (7.9-10.8); MONOCYTES # (AUTO) 0.6 10^3/uL (0.0-1.0); NEUTROPHILS # (AUTO) 4.3 10^3/uL (1.5-6.6); NEUTROPHILS % (AUTO) 50.2 %; PLT - PLATELET COUNT 286 10^3/uL (130-450); RED BLOOD COUNT 4.79 10^6/uL (4.20-5.40); RED CELL DISTRIBUTION WIDTH 14.3 % (12.0-15.0); WHITE BLOOD COUNT 8.6 x10^3/uL (4.8-10.8)
[2019-04-20 17:11] LABS: ALBUMIN 3.9 g/dL (3.2-5.5); BILIRUBIN,TOTAL 0.5 mg/dL (0.2-1.0); CALCIUM 8.9 mg/dL (8.5-10.3); CREATININE 0.7 mg/dL (0.4-1.0); TOTAL PROTEIN 7.8 g/dL (6.7-8.2)
--- NOTE | 2019-04-20 17:25 | CT Report ---
Reason: R abd pain Procedure Date: 04/20/2019 Accession Number: [id number] / [id number] Procedure: CT - Abdomen/Pelvis WO CPT Code: FULL RESULT: EXAM: CT ABDOMEN AND PELVIS (CT KUB) EXAM DATE: 04/20/2019 04:39 PM. CLINICAL HISTORY: R abd pain. COMPARISONS: None. TECHNIQUE: Routine helical CT imaging was performed through the abdomen and pelvis without intravenous contrast. Lack of intravenous contrast can at times limit scan sensitivity, particularly for the detection of intraparenchymal and vascular pathology. Reconstructions: Coronal and sagittal. In accordance with CT protocol optimization, one or more of the following dose reduction techniques were utilized for this exam: automated exposure control, adjustment of mA and/or KV based on patient size, or use of iterative reconstructive technique. FINDINGS: ABDOMEN: Lung Bases: Incompletely included lower lungs demonstrate left lower lobe scarring/atelectasis. Heart size is within normal limits. No basilar effusions. Liver: Lobular contour. Gallbladder/Bile Ducts: Gallbladder is unremarkable. Visualized biliary tree is normal caliber. Spleen: Unremarkable. Pancreas: Unremarkable. Adrenal Glands: Unremarkable. Kidneys: Right kidney: No calculi or hydronephrosis. Left kidney: A couple of formula to calculi at the left upper pole. Left upper renal scarring. Duplicated collecting system. Hydronephrosis of the lower pole moiety. No ureteric calculi. Peritoneum/Mesentery/Bowel: No free fluid, free air, or collection. No intestinal obstruction or inflammation. The appendix is within normal limits. Lymph nodes: No mesenteric, periportal, or retroperitoneal lymphadenopathy. PELVIS: The bladder is unremarkable for the degree of distention. Uterus and ovaries are present. No obvious abnormally enlarged adnexal abnormalities. No pelvic lymphadenopathy. Retroperitoneum: Abdominal aorta is nonaneurysmal. Bones: No suspicious osseous lesions. 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 No obstructing calculi. There are a couple of nonobstructing left upper calculi measuring up to 4 mm. No right renal calculi or hydronephrosis. Appendix is unremarkable. Lobular liver contour. Correlation as to the presence of cirrhosis. RADIA
[2019-04-20 18:22] LABS: BILIRUBIN,URINE NEGATIVE (NEGATIVE); GLUCOSE, URINE (UA) NEGATIVE (NEGATIVE); KETONES,URINE (UA) NEGATIVE (NEGATIVE); LEUKOCYTE ESTERASE, URINE NEGATIVE (NEGATIVE); NITRITE,URINE POSITIVE (NEGATIVE); OCCULT BLOOD,URINE TRACE-INTA (NEGATIVE); PROTEIN,URINE NEGATIVE (NEGATIVE); UROBILINOGEN,URINE 0.2 (NORMAL) E.U./dL (NORMAL)
[2019-04-20 18:56] LABS: CLARITY,URINE HAZY (CLEAR)
[2019-04-20 18:57] LABS: RBC,URINE None Seen /HPF (0-5)
[2019-04-20 18:58] LABS: BACTERIA,URINE Moderate /HPF (None Seen); SQUAMOUS EPITHELIAL CELL,UR RARE Squamous (<= Few)
[2019-04-20] MEDS ORDERED: CIPROFLOXACIN 250 MG TABLET PO STA (18:59)
[2019-04-20 19:30] VITALS: BP 137/65
== END 2019-04-20 19:29 | disposition home or self-care (01) ==
LOC: ED 16:23
DX: N12 Tubulo-interstitial nephritis, not specified as acute or chronic (principal)
CPT/HCPCS: 36415; 74176; 80053; 81001; 83690; 85025; 87086; 96361; 96374; 99284; 99285; A9270; J1170; 81003

== ENCOUNTER 2019-06-27 08:00 | Outpatient (CLI) | payer MEDICARE, MEDICAID ==
[2019-06-27 18:20] LABS: CANDIDA GROUP DNA POSITIVE (NEGATIVE); CANDIDA KRUSEI DNA NEGATIVE (NEGATIVE); TRICHOMONAS VAGINALIS DNA NEGATIVE (NEGATIVE)
[2019-06-27 19:07] LABS: TRICHOMONAS VAGINALIS DNA NEGATIVE (NEGATIVE)
== END 2019-06-27 23:59 | disposition home or self-care (01) ==
LOC: LAB.R 08:00
PROVIDERS: ATTEND Nurse Practitioner Obstetrics & Gynecology
DX: Z11.3 Encounter for screening for infections with a predominantly sexual mode of transmission (principal); N89.8 Other specified noninflammatory disorders of vagina
CPT/HCPCS: 87491; 87591; 87661; 87801

== ENCOUNTER 2019-09-05 13:32 | Emergency (ER) | payer MEDICARE, MEDICAID ==
[2019-09-05 14:02] LABS: BILIRUBIN,URINE NEGATIVE (NEGATIVE); GLUCOSE, URINE (UA) NEGATIVE (NEGATIVE); KETONES,URINE (UA) NEGATIVE (NEGATIVE); LEUKOCYTE ESTERASE, URINE NEGATIVE (NEGATIVE); NITRITE,URINE POSITIVE (NEGATIVE); OCCULT BLOOD,URINE NEGATIVE (NEGATIVE); PROTEIN,URINE NEGATIVE (NEGATIVE); UROBILINOGEN,URINE 0.2 (NORMAL) E.U./dL (NORMAL)
[2019-09-05 14:22] LABS: BACTERIA,URINE Many /HPF (None Seen); CLARITY,URINE HAZY (CLEAR); RBC,URINE None Seen /HPF (0-5); SQUAMOUS EPITHELIAL CELL,UR FEW Squamous (<= Few)
[2019-09-05 14:48] LABS: BASOPHILS # (AUTO) 0.1 10^3/uL (0.0-0.1); BASOPHILS % (AUTO) 0.6 %; EOSINOPHILS # (AUTO) 0.1 10^3/uL (0.0-0.7); EOSINOPHILS % (AUTO) 1.6 %; LYMPHOCYTES # (AUTO) 2.1 10^3/uL (1.5-3.5); LYMPHOCYTES % (AUTO) 22.9 %; MEAN CORPUSCULAR HEMOGLOBIN 29.6 pg (27.0-31.0); MEAN CORPUSCULAR HGB CONC 33.2 g/dL (32.0-36.0); MEAN CORPUSCULAR VOLUME 89.2 fL (81.0-99.0); MONOCYTES # (AUTO) 0.5 10^3/uL (0.0-1.0); MONOCYTES % (AUTO) 5.6 %; NEUTROPHILS # (AUTO) 6.2 10^3/uL (1.5-6.6); NEUTROPHILS % (AUTO) 69.1 %; PLT - PLATELET COUNT 273 10^3/uL (130-450); RED BLOOD COUNT 4.73 10^6/uL (4.20-5.40); RED CELL DISTRIBUTION WIDTH 14.2 % (12.0-15.0)
[2019-09-05 15:05] LABS: ALBUMIN 3.8 g/dL (3.2-5.5); BILIRUBIN,TOTAL 0.8 mg/dL (0.2-1.0); CALCIUM 8.7 mg/dL (8.5-10.3); CREATININE 0.8 mg/dL (0.4-1.0); TOTAL PROTEIN 7.5 g/dL (6.7-8.2)
[2019-09-05] MEDS ORDERED: IOVERSOL 320 100 ML VIAL IVP ONE ×2 (15:33→15:55)
--- NOTE | 2019-09-05 16:11 | CT Report ---
Reason: RLQ abd pain Procedure Date: 09/05/2019 Accession Number: [id number] / [id number] Procedure: CT - Abdomen/Pelvis W CPT Code: Final Report FULL RESULT: EXAM: CT ABDOMEN AND PELVIS EXAM DATE: 09/05/2019 03:54 PM. CLINICAL HISTORY: RLQ abd pain. COMPARISONS: ABDOMEN/PELVIS W/O 04/20/2019 4:39 PM. TECHNIQUE: Routine helical CT imaging was performed through the abdomen and pelvis. IV contrast: OPTI 320 100ML. Enteric contrast: No. Reconstructions: Coronal and sagittal. In accordance with CT protocol optimization, one or more of the following dose reduction techniques were utilized for this exam: automated exposure control, adjustment of mA and/or KV based on patient size, or use of iterative reconstructive technique. FINDINGS: Lung Bases: Unremarkable. Liver: Normal. No masses. Gallbladder/Bile Ducts: Unremarkable. Spleen: Normal. Pancreas: Normal. Adrenal Glands: Normal. Kidneys: Normal. No masses or hydronephrosis. Peritoneal Cavity/Bowel: Normal. No free fluid, free air or adenopathy. No masses or acute inflammatory process. The appendix is well visualized and normal. Pelvic Organs: Normal. The bladder and visualized pelvic organs are within normal limits. Vasculature: No aneurysms or other significant abnormality. Bones: No significant abnormality. Other: None. IMPRESSION: Normal abdomen and pelvis CT. RADIA
[2019-09-05 16:46] VITALS: BP 128/78
--- NOTE | 2019-09-05 16:46 | ED Physician Documentation ---
History of Present Illness - Stated complaint Stated Complaint: FEMALE /BODY PX - Chief complaint Chief Complaint: Abd Pain - History obtained from History obtained from: Patient - History of Present Illness Timing: Yesterday Pain level max: 6 Pain level now: 1 - Additonal information Additional information: 64-year-old female presents the emergency department with abdominal pain last night. Now resolved today. She states that the pain was in the right lower quadrant in the right flank. Nothing made it better or worse. No fevers. No vomiting. No epigastric pain. She states that she had some mild discomfort in her right low abdomen after intercourse approximately 1 week ago. She does not have any vaginal bleeding or discharge. 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 : None HEENT: None Psych: Depression, Anxiety Musculoskeletal: Osteoarthritis Derm: None - Past Surgical History Past Surgical History: Yes General: Other 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 HEENT: Tonsil/Adenoidectomy - Present Medications Home Medications: Ambulatory Orders Medication Instructions Recorded Confirmed Ciprofloxacin HCl [Cipro] 500 mg PO BID #20 tablet 04/20/19 Hydrocodone/Acetaminophen 1 - 2 each PO Q6H PRN #14 tablet 04/20/19 [Hydrocodon-Acetaminophen 5-325] Ondansetron Odt [Zofran] 4 mg TL Q6H PRN #10 tablet 04/20/19 Meloxicam [Mobic] 15 mg PO DAILY PRN #20 tablet 09/05/19 - Allergies Allergies/Adverse Reactions: Allergies Allergy/AdvReac Type Severity Reaction Status Date / Time paroxetine HCl * [From Paxil] AdvReac Intermediate "like im Verified 09/05/19 13:49 crawling out of my skin" escitalopram oxalate * AdvReac Unknown Verified 09/05/19 13:49 [From Lexapro] - Social History Does the pt smoke?: No Smoking Status: Never smoker Does the pt drink ETOH?: No Does the pt have substance abuse?: No - Immunizations Immunizations are current?: Yes - POLST Patient has POLST: No PD ED PE NORMAL - Vitals Vital signs reviewed: Yes - General General: Alert and oriented X 3, No acute distress, Well developed/nourished - HEENT HEENT: Moist mucous membranes - Neck Neck: Supple, no meningeal sign - Cardiac Cardiac: RRR, Strong equal pulses - Respiratory Respiratory: No respiratory distress, Clear bilaterally - Abdomen Abdomen: Normal bowel sounds, Soft, Non tender, Non distended - Female Female : Pt declined - Back Back: No CVA TTP - Derm Derm: Warm and dry - Neuro Neuro: Alert and oriented X 3 - Psych Psych: Normal mood, Normal affect Results - Vitals Vitals: Vital Signs - 24 hr 09/05/19 09/05/19 13:47 16:46 Temperature 36.5 C 36.9 C Heart Rate 91 74 Respiratory 16 14 Rate Blood Pressure 142/94 H 128/78 O2 Saturation 97 96 Oxygen O2 Source Room air - Labs Labs: Laboratory Tests 09/05/19 09/05/19 09/05/19 13:54 14:30 14:30 WBC 9.0 RBC 4.73 Hgb 14.0 Hct 42.2 MCV 89.2 MCH 29.6 MCHC 33.2 RDW 14.2 Plt Count 273 MPV 10.0 Neut # (Auto) 6.2 Lymph # (Auto) 2.1 [place] # (Auto) 0.5 Eos # (Auto) 0.1 Baso # (Auto) 0.1 Absolute Nucleated RBC 0.00 Nucleated RBC % 0.0 Sodium 141 Potassium 3.8 Chloride 102 Carbon Dioxide 27 Anion Gap 12.0 BUN 12 Creatinine 0.8 Estimated GFR (MDRD) 72 L Glucose 105 H Calcium 8.7 Total Bilirubin 0.8 AST 23 ALT 25 Alkaline Phosphatase 65 Total Protein 7.5 Albumin 3.8 Globulin 3.7 Albumin/Globulin Ratio 1.0 Lipase 285 H Urine Color YELLOW Urine Clarity HAZY Urine pH 6.0 Ur Specific [place] 1.020 Urine Protein NEGATIVE Urine Glucose (UA) NEGATIVE Urine Ketones NEGATIVE Urine Occult Blood NEGATIVE Urine Nitrite POSITIVE H Urine Bilirubin NEGATIVE Urine Urobilinogen 0.2 (NORMAL) Ur Leukocyte Esterase NEGATIVE Urine RBC None Seen Urine WBC 4-5 Ur Squamous Epith Cells FEW Squamous Urine Bacteria Many H Ur Microscopic Review INDICATED Urine Culture Comments INDICATED - Rads (name of study) CT abdomen pelvis Radiology: Prelim report reviewed, EMP read contemporaneously, See rad report (No acute abnormalities) PD MEDICAL DECISION MAKING - ED course Complexity details: reviewed results, re-evaluated patient, considered differential, d/w patient ED course: Patient presents to the emergency department with abdominal pain of unclear etiology last night. She is asymptomatic here. She is well-appearing, nontoxic. Afebrile. No vaginal bleeding or discharge. We will have her follow-up with her doctor for further care. Urinalysis appears contaminated. She is not symptomatic of UTI. Patient counseled regarding signs and symptoms for which I believe and urgent re-evaluation would be necessary. Patient with good understanding of and agreement to plan and is comfortable going home at this time This document was made in part using voice recognition software. While efforts are made to proofread this document, sound alike and grammatical errors may occur. Departure - Departure Disposition: 01 Home, Self Care Clinical Impression: Abdominal pain Qualifiers: Abdominal location: unspecified location Qualified Code(s): R10.9 - Unspecified abdominal pain Condition: Good Instructions: ED Abdominal Pain Unkn Cause Follow-Up: Your,doctor in 1 week [Other] Prescriptions: Meloxicam [Mobic] 15 mg PO DAILY PRN #20 tablet PRN Reason: pain Comments: The cause of your pain is unclear today. You do have a mild elevation of your lipase which could be a mild pancreatitis, but your pain is not consistent with this. Otherwise your laboratory testing and CAT scan did not show any acute abnormalities. Follow-up with your doctor for further care. Discharge Date/Time: 09/05/19 17:02
== END 2019-09-05 17:02 | disposition home or self-care (01) ==
LOC: ED 13:32
DX: R10.31 Right lower quadrant pain (principal); R74.8 Abnormal levels of other serum enzymes
CPT/HCPCS: 36415; 74177; 80053; 81001; 83690; 85025; 87077; 87086; 87181; 99284; Q9967; 81003

== ENCOUNTER 2019-09-29 15:59 | Outpatient (CLI) | payer MEDICARE, MEDICAID ==
--- NOTE | 2019-10-01 15:47 | Ultrasound Report ---
Reason: LEG PAIN BILAT Procedure Date: 09/29/2019 Accession Number: [id number] / [id number] Procedure: US - Ankle Brachial Index CPT Code: Final Report FULL RESULT: EXAM: BILATERAL ANKLE/BRACHIAL INDEX EXAM DATE: 09/29/2019 05:25 PM. CLINICAL HISTORY: LEG PAIN BILAT. COMPARISON: None. TECHNIQUE: A blood pressure cuff and pulse volume recording Doppler ultrasound was used to evaluate the arterial pressures in the arms and ankle. No images were acquired. FINDINGS: Brachial pressure: Right brachial artery: 137/73 mmHg, index 1.00 Left brachial artery: 130/86 mmHg Right ankle pressures: 167/86 mmHg Left ankle pressures: 167/87 mmHg IMPRESSION: 1. Right ankle/brachial index: 1.2, normal. 2. Left ankle/brachial index: 1.2, normal. ANKLE/BRACHIAL INDEX REFERENCE STANDARDS 1.0-1.4: Normal 0.90-0.99: Borderline < 0.9: Abnormal RADIA
== END 2019-09-29 16:00 | disposition home or self-care (01) ==
LOC: DI 15:59
PROVIDERS: ATTEND Family Medicine
DX: M79.604 Pain in right leg (principal); M79.605 Pain in left leg
CPT/HCPCS: 93922

== ENCOUNTER 2020-02-24 15:40 | Outpatient (CLI) | payer MEDICARE, MEDICAID ==
--- NOTE | 2020-02-24 18:15 | Ultrasound Report ---
PROCEDURE: Retroperitoneal INDICATIONS: RENAL CALCIFICATION TECHNIQUE: Real-time scanning was performed of the retroperitoneal organs, with image documentation. COMPARISON: None. FINDINGS: Kidneys: Kidneys are normal in size. Right kidney measures 11.3 cm long; left kidney measures 10.8 cm long. Right renal cortical thickness is 0.7 cm; left renal cortical thickness is 1.0 cm. No solid masses or hydronephrosis. There is a capacious left extrarenal pelvis. A 1.0 cm diameter calcificati on is present within the left upper pole. Cortical scars noted within the left midpole. Miscellaneous: The prevoid bladder volume is 770 cc. Postvoid is 216 cc. The bilateral ureteral jets are visualized. IMPRESSION: 1. Nonobstructing left nephrolithiasis. 2. Capacious left extrarenal pelvis. 3. No hydronephrosis. 4. Moderate post void residual. Reviewed by: Melinda Gil MD on 02/24/2020 6:14 PM PDT Approved by: Melinda Gil MD on 02/24/2020 6:14 PM PDT Station ID: [id number]
--- NOTE | 2020-02-24 18:16 | XRAY Report ---
PROCEDURE: Abdomen 1 View X-Ray INDICATIONS: RENAL CALCIFICATION TECHNIQUE: 1 view of the abdomen were acquired. COMPARISON: None FINDINGS: Surgical changes and devices: None. Bowel: No pneumoperitoneum. The bowel gas pattern is normal. Soft tissues: No masses; visualized solid organ contours appear normal in size. No suspicious abdom inal calcifications. Bones: No suspicious bony abnormalities. IMPRESSION: No acute intra-abdominal findings. Reviewed by: Melinda Gil MD on 02/24/2020 6:15 PM PDT Approved by: Melinda Gil MD on 02/24/2020 6:15 PM PDT Station ID: [id number]
== END 2020-02-24 15:41 | disposition home or self-care (01) ==
LOC: DI 15:40
PROVIDERS: ATTEND Urology
DX: N28.89 Other specified disorders of kidney and ureter (principal); N20.0 Calculus of kidney
CPT/HCPCS: 74018; 76770

== ENCOUNTER 2020-03-30 16:02 | Emergency (ER) | payer MEDICARE, MEDICAID ==
[2020-03-30 17:44] LABS: CLARITY,URINE CLEAR (CLEAR)
[2020-03-30 17:50] LABS: BACTERIA,URINE Many /HPF (None Seen); RBC,URINE 0-5 /HPF (0-5); SQUAMOUS EPITHELIAL CELL,UR MOD Squamous (<= Few)
[2020-03-30] MEDS ORDERED: HYDROcod/ACETAM 5/325 MG TABLET PO STA (18:02)
--- NOTE | 2020-03-30 18:03 | ED Physician Documentation ---
History of Present Illness - Stated complaint Stated Complaint: FEMALE - Chief complaint Chief Complaint: General - History obtained from History obtained from: Patient - Additonal information Additional information: For several days she has had vaginal pain and burning. She is a somewhat rambling historian and hard to get a straight answer out of but it sounds like she went to a clinic and got some sort of antibiotics for presumed UTI which have not helped. There is no discharge. Pain is constant and burning and itching. Review of Systems Constitutional: reports: Reviewed and negative Nose: reports: Reviewed and negative Throat: reports: Reviewed and negative Cardiac: reports: Reviewed and negative PD PAST MEDICAL HISTORY - Past Medical History Cardiovascular: None Respiratory: Pneumonia Neuro: Headaches Endocrine/Autoimmune: None GI: Ulcers ADOLESCENT PSYCHIATRIST: None : None HEENT: None Psych: Depression, Anxiety Musculoskeletal: Osteoarthritis Derm: None - Past Surgical History Past Surgical History: Yes General: Other Ortho: Other /ADOLESCENT PSYCHIATRIST: section HEENT: Tonsil/Adenoidectomy - Present Medications Home Medications: Ambulatory Orders Medication Instructions Recorded Confirmed Ciprofloxacin HCl [Cipro] 500 mg PO BID #20 tablet 04/20/19 Hydrocodone/Acetaminophen 1 - 2 each PO Q6H PRN #14 tablet 04/20/19 [Hydrocodon-Acetaminophen 5-325] Ondansetron Odt [Zofran] 4 mg TL Q6H PRN #10 tablet 04/20/19 Meloxicam [Mobic] 15 mg PO DAILY PRN #20 tablet 09/05/19 Fluconazole 150 mg PO SCENE SHIFTER #2 tablet 03/30/20 - Allergies Allergies/Adverse Reactions: Allergies Allergy/AdvReac Type Severity Reaction Status Date / Time paroxetine HCl * [From Paxil] AdvReac Intermediate "like im Verified 03/30/20 16:12 crawling out of my skin" escitalopram oxalate * AdvReac Unknown Verified 03/30/20 16:12 [From Lexapro] - Social History Does the pt smoke?: No Smoking Status: Never smoker Does the pt drink ETOH?: No Does the pt have substance abuse?: No - Immunizations Immunizations are current?: Yes - POLST Patient has POLST: No PD ED PE NORMAL - Vitals Vital signs reviewed: Yes - General General: No acute distress, Well developed/nourished - Abdomen Abdomen: Soft, Non tender - Female Female : Other (Pelvic exam done with Julien DUBOIS present and chaperoning, she has a terrible case of yeast vaginitis in the intertriginous areas with whitish vaginal discharge. No cervical motion tenderness.) Results - Vitals Vitals: Vital Signs - 24 hr 03/30/20 16:10 Temperature 37.1 C Heart Rate 72 Respiratory 16 Rate Blood Pressure 133/87 H O2 Saturation 94 Oxygen O2 Source Room air - Labs Labs: Microbiology 03/30/20 19:13 Wet Prep - Final Genital - Vaginal Laboratory Tests 03/30/20 16:21 Urine Color ORANGE Urine Clarity CLEAR Urine pH Ur Specific [place] Urine Protein Urine Glucose (UA) Urine Ketones Urine Occult Blood Urine Nitrite Urine Bilirubin Urine Urobilinogen Ur Leukocyte Esterase Urine RBC 0-5 Urine WBC 4-5 Ur Squamous Epith Cells MOD Squamous H Urine Bacteria Many H Urine Culture Comments NOT INDICATED Departure - Departure Disposition: 01 Home, Self Care Clinical Impression: Yeast infection involving the vagina and surrounding area Condition: Good Record reviewed to determine appropriate education?: Yes Instructions: ED Vaginal Infec Fungal Maday Prescriptions: Fluconazole 150 mg PO SCENE SHIFTER #2 tablet Comments: Call your doctor to arrange a follow-up appointment, make the next available appointment. In the interim, return anytime if worse or if new symptoms develop.
[2020-03-30] MEDS ORDERED: FLUCONAZOLE 100 MG TABLET PO STA (19:14)
[2020-03-30] MEDS ORDERED: HYDROcod/ACET 5/325 Prepack 4 PO STA (19:14)
[2020-03-30 19:54] VITALS: BP 116/63
[2020-03-30 21:26] LABS: CANDIDA GROUP DNA POSITIVE (NEGATIVE); CANDIDA KRUSEI DNA NEGATIVE (NEGATIVE); TRICHOMONAS VAGINALIS DNA NEGATIVE (NEGATIVE)
== END 2020-03-30 19:54 | disposition home or self-care (01) ==
LOC: ED 16:02
DX: B37.3 Candidiasis of vulva and vagina (principal)
CPT/HCPCS: 81001; 87210; 87481; 87661; 87801; 99283; A9270; 87086

== ENCOUNTER 2020-04-10 07:00 | Outpatient (CLI) | payer MEDICARE, MEDICAID | END 2020-04-10 23:59 | disposition home or self-care (01) | LOC: LAB.R 07:00 | PROVIDERS: ATTEND Family Medicine | DX: N39.0 Urinary tract infection, site not specified (principal) | CPT/HCPCS: 87086; 87181 ==

== ENCOUNTER 2020-06-14 09:36 | Outpatient (CLI) | payer MEDICARE, MEDICAID | END 2020-06-14 23:59 | disposition home or self-care (01) | LOC: LAB.R 09:36 | PROVIDERS: ATTEND Family Medicine | DX: N39.0 Urinary tract infection, site not specified (principal) | CPT/HCPCS: 87086 ==

== ENCOUNTER 2020-07-01 09:28 | Emergency (ER) | payer MEDICARE, MEDICAID ==
[2020-07-01 10:06] LABS: BILIRUBIN,URINE NEGATIVE (NEGATIVE); GLUCOSE, URINE (UA) NEGATIVE (NEGATIVE); KETONES,URINE (UA) NEGATIVE (NEGATIVE); LEUKOCYTE ESTERASE, URINE NEGATIVE (NEGATIVE); NITRITE,URINE NEGATIVE (NEGATIVE); OCCULT BLOOD,URINE NEGATIVE (NEGATIVE); PROTEIN,URINE NEGATIVE (NEGATIVE); UROBILINOGEN,URINE 0.2 (NORMAL) E.U./dL (NORMAL)
[2020-07-01 10:07] LABS: CLARITY,URINE CLEAR (CLEAR)
[2020-07-01] MEDS ORDERED: ACETAMINOPHEN 325 MG TABLET PO STA (11:35)
[2020-07-01 12:31] VITALS: BP 118/72
[2020-07-01 12:59] LABS: CANDIDA GROUP DNA NEGATIVE (NEGATIVE); CANDIDA KRUSEI DNA NEGATIVE (NEGATIVE); TRICHOMONAS VAGINALIS DNA NEGATIVE (NEGATIVE)
--- NOTE | 2020-07-01 17:13 | ED Physician Documentation ---
History of Present Illness - Stated complaint Stated Complaint: FEMALE - Chief complaint Chief Complaint: General - History obtained from History obtained from: Patient - Additonal information Additional information: 65-year-old woman with past medical history frequent yeast infections, UTI presents with request for medical screening exam with full STI panel. Patient states she has had constant burning vaginal pain progressive over the past 4 days gradual onset, worsening, aching,. Denies worsening with urination. Denies increased frequency, hematuria.Denies fevers vaginal lesions or abnormal discharge. Review of Systems Ten Systems: 10 systems reviewed and negative Constitutional: reports: Chills. 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: None : None HEENT: None Psych: Depression, Anxiety Musculoskeletal: Osteoarthritis Derm: None - Past Surgical History Past Surgical History: Yes General: Other Ortho: Other /LEAD PHARMACY TECHNICIAN: section HEENT: Tonsil/Adenoidectomy - Present Medications Home Medications: Ambulatory Orders Medication Instructions Recorded Confirmed Ciprofloxacin HCl [Cipro] 500 mg PO BID #20 tablet 04/20/19 Hydrocodone/Acetaminophen 1 - 2 each PO Q6H PRN #14 tablet 04/20/19 [Hydrocodon-Acetaminophen 5-325] Ondansetron Odt [Zofran] 4 mg TL Q6H PRN #10 tablet 04/20/19 Meloxicam [Mobic] 15 mg PO DAILY PRN #20 tablet 09/05/19 Fluconazole 150 mg PO PRIMER POWDER BLENDER WET #2 tablet 03/30/20 Estrogens, Conjugated Cream 30 gm VG QPM PRN 30 Days #1 tube 07/01/20 [Premarin Cream] - Allergies Allergies/Adverse Reactions: Allergies Allergy/AdvReac Type Severity Reaction Status Date / Time paroxetine HCl * [From Paxil] AdvReac Intermediate "like im Verified 07/01/20 09:36 crawling out of my skin" escitalopram oxalate * AdvReac Unknown Verified 07/01/20 09:36 [From Lexapro] - Social History Does the pt smoke?: No Smoking Status: Never smoker Does the pt drink ETOH?: No Does the pt have substance abuse?: No - Immunizations Immunizations are current?: Yes - POLST Patient has POLST: No PD ED PE NORMAL - Vitals Vital signs reviewed: Yes - General General: Alert and oriented X 3 - HEENT HEENT: Atraumatic, PERRL, EOMI - Neck Neck: Supple, no meningeal sign - Cardiac Cardiac: RRR - Respiratory Respiratory: No respiratory distress - Abdomen Abdomen: Normal bowel sounds, Non tender, Non distended - Female Female : Template Inspector present (RN), Other (atrophic postmenopausal ext female genitalia. nontender on bimanual exam. speculum exam with white physiologic discharge. samples taken) - Rectal Rectal: Deferred - Back Back: No CVA TTP - Derm Derm: Normal color, Warm and dry - Extremities Extremities: No deformity - Neuro Neuro: Alert and oriented X 3 - Psych Psych: Normal mood, Normal affect Results - Vitals Vitals: Vital Signs - 24 hr 07/01/20 07/01/20 09:33 12:30 Temperature 36.3 C L 36.5 C Heart Rate 98 90 Respiratory 20 16 Rate Blood Pressure 117/74 118/72 O2 Saturation 99 100 Oxygen O2 Source Room air - Labs Labs: Microbiology 07/01/20 10:39 Wet Prep - Final Cervix Laboratory Tests 07/01/20 07/01/20 09:50 10:39 Urine Color YELLOW Urine Clarity CLEAR Urine pH 6.0 Ur Specific [place] 1.025 Urine Protein NEGATIVE Urine Glucose (UA) NEGATIVE Urine Ketones NEGATIVE Urine Occult Blood NEGATIVE Urine Nitrite NEGATIVE Urine Bilirubin NEGATIVE Urine Urobilinogen 0.2 (NORMAL) Ur Leukocyte Esterase NEGATIVE Ur Microscopic Review NOT INDICATED Urine Culture Comments NOT INDICATED C. glabrata (PCR) NEGATIVE C. krusei (PCR) NEGATIVE Maday species DNA NEGATIVE T. vaginalis (PCR) NEGATIVE Bact Vaginosis (PCR) NEGATIVE PD MEDICAL DECISION MAKING - ED course Complexity details: reviewed results, d/w patient ED course: 65-year-old woman presents for vaginal burning, requesting STI testing and recep exam. Preliminary results negative in the ED. Counseled patient on return precautions. Patient will follow up for results and follow-up with PMD and HOUSE SUPERINTENDENT. Departure - Departure Disposition: 01 Home, Self Care Clinical Impression: Vaginal pain Condition: Good Instructions: Conjugated Estrogens vaginal cream Prescriptions: Estrogens, Conjugated Cream [Premarin Cream] 30 gm VG QPM PRN 30 Days #1 tube PRN Reason: Pain Comments: You have been seen in the emergency department for vaginal burning. An HIV test was sent, as well as gonorrhea, chlamydia, trichomonas, bacterial vaginosis. The initial test for bacterial vaginosis, yeast infection, and trichomonas showed no evidence of that. It is most likely that you have postmenopausal vaginal dryness causing your pain. You can try Premarin cream that I am prescribing. It is important to follow-up the rest of your results on the patient health portal which you can access on the [facility] website. He is also follow-up with an HOUSE SUPERINTENDENT and with your primary doctor. Return for any worsening or new symptoms. Discharge Date/Time: 07/01/20 12:43
[2020-07-01 22:15] LABS: TRICHOMONAS VAGINALIS DNA NEGATIVE (NEGATIVE)
[2020-07-02 14:01] LABS: HIV AG/AB 4TH GEN NON-REACTIVE (NON-REACTIVE)
== END 2020-07-01 12:43 | disposition home or self-care (01) ==
LOC: ED 09:28
DX: R10.2 Pelvic and perineal pain (principal); N95.8 Other specified menopausal and perimenopausal disorders; Z11.4 Encounter for screening for human immunodeficiency virus [HIV]
CPT/HCPCS: 81003; 87210; 87481; 87491; 87591; 87661; 87801; 99283; 99284; A9270; G0475; 81001; 87086; 87389

== ENCOUNTER 2020-07-22 12:33 | Emergency (ER) | payer MEDICARE, MEDICAID ==
[2020-07-22] MEDS ORDERED: ASPIRIN CHEW 81 MG TABLET PO STA (13:51)
--- NOTE | 2020-07-22 13:53 | ED Physician Documentation ---
PD HPI CHEST PAIN - Stated complaint Stated Complaint: CHEST PX/ANXIETY - Chief complaint Chief Complaint: Cardiac - History obtained from History obtained from: Patient - History of Present Illness Timing - onset: How many days ago (2) Timing - onset during: Other (panic attack) Timing - duration: Days (2) Timing - details: Constant Pain level max: 4 Pain level now: 3 Quality: Aching, Pain Location: Left chest Radiation: No: Jaw, Neck, Back, Abdominal, Left upper extremity, Right upper extremity Improved by: Nothing Worsened by: Movement, Palpation Associated symptoms: Nausea. No: Shortness of air, Diaphoresis, Vomiting, Feeling faint / dizzy, General Weakness, Palpitations - Additional information Additional information: 65-year-old female presents to the emergency department stating that she has had chest pain for the past 2 days. She states that she had a panic attack on Wednesday night and her chest has been sore since that time. Worse with movement and palpation. Nothing makes it better. Has not taken anything for this. Has had intermittent nausea. No vomiting. No diarrhea. No abdominal pain. No fevers. No chills. No cough. The pain is nonradiating. Review of Systems Constitutional: denies: Fever, Chills Respiratory: denies: Cough GI: denies: Vomiting, Diarrhea Skin: denies: Rash Musculoskeletal: denies: Neck pain, Back pain Neurologic: denies: Headache PD PAST MEDICAL HISTORY - Past Medical History Cardiovascular: None Respiratory: Pneumonia Neuro: Headaches Endocrine/Autoimmune: None GI: Ulcers MYSTERY SHOPPER: None : None HEENT: None Psych: Depression, Anxiety Musculoskeletal: Osteoarthritis Derm: None - Past Surgical History Past Surgical History: Yes General: Other Ortho: Other /MYSTERY SHOPPER: section HEENT: Tonsil/Adenoidectomy - Present Medications Home Medications: Ambulatory Orders Medication Instructions Recorded Confirmed Estrogens, Conjugated Cream 30 gm VG QPM PRN 30 Days #1 tube 07/01/20 07/22/20 [Premarin Cream] Ibuprofen [Motrin] 800 mg PO Q8H PRN #30 tablet 07/22/20 Ondansetron Odt [Zofran] 4 mg TL Q6H PRN #10 tablet 07/22/20 - Allergies Allergies/Adverse Reactions: Allergies Allergy/AdvReac Type Severity Reaction Status Date / Time paroxetine HCl * [From Paxil] AdvReac Intermediate "like im Verified 07/22/20 12:41 crawling out of my skin" escitalopram oxalate * AdvReac Unknown Verified 07/22/20 12:41 [From Lexapro] - Social History Does the pt smoke?: No Smoking Status: Never smoker Does the pt drink ETOH?: No Does the pt have substance abuse?: No - Immunizations Immunizations are current?: Yes - POLST Patient has POLST: No PD ED PE NORMAL - Vitals Vital signs reviewed: Yes - General General: Alert and oriented X 3, No acute distress - HEENT HEENT: Moist mucous membranes - Neck Neck: Supple, no meningeal sign - Cardiac Cardiac: RRR, Strong equal pulses - Respiratory Respiratory: No respiratory distress, Clear bilaterally - Abdomen Abdomen: Soft, Non tender, Non distended - Derm Derm: Warm and dry - Neuro Neuro: Alert and oriented X 3 - Psych Psych: Normal mood, Normal affect - Free text exam Free text exam: TTP over the L chest wall. reproduces her pain Results - Vitals Vitals: Vital Signs - 24 hr 07/22/20 07/22/20 07/22/20 12:37 14:25 14:54 Temperature 36.0 C L Heart Rate 81 74 70 Respiratory 16 21 17 Rate Blood Pressure 132/70 H 158/67 H 136/74 H O2 Saturation 100 99 98 07/22/20 07/22/20 07/22/20 15:00 15:50 16:00 Temperature Heart Rate 76 67 77 Respiratory 21 15 20 Rate Blood Pressure 141/97 H 121/73 116/69 O2 Saturation 96 97 Oxygen O2 Source Room air - EKG (time done) 1245 Rate: Rate (enter#) (84) Rhythm: NSR [place]: Normal Intervals: Normal NE QRS: Normal Ischemia: Normal ST segments Other comments: Other comments (ventricular trigeminy) Computer interpretation: Agree with computer - Labs Labs: Laboratory Tests 07/22/20 07/22/20 07/22/20 12:30 12:30 13:51 WBC 7.8 RBC 4.67 Hgb 14.0 Hct 42.4 MCV 90.8 MCH 30.0 MCHC 33.0 RDW 14.5 Plt Count 281 MPV 10.0 Neut # (Auto) 4.4 Lymph # (Auto) 2.8 [place] # (Auto) 0.4 Eos # (Auto) 0.1 Baso # (Auto) 0.1 Absolute Nucleated RBC 0.00 Nucleated RBC % 0.0 Sodium 141 Potassium 3.9 Chloride 104 Carbon Dioxide 25 Anion Gap 12.0 BUN 9 Creatinine 0.8 Estimated GFR (MDRD) 72 L Glucose 98 Calcium 8.9 Total Bilirubin 0.6 AST 27 ALT 27 Alkaline Phosphatase 61 Troponin I High Sens 3.1 Total Protein 7.6 Albumin 3.9 Globulin 3.7 Albumin/Globulin Ratio 1.1 Lipase 38 - Rads (name of study) cxr Radiology: Prelim report reviewed, EMP read contemporaneously, See rad report (No acute cardiopulmonary abnormality identified. ) PD MEDICAL DECISION MAKING - ED course Complexity details: reviewed results, re-evaluated patient, considered differe ntial (No ST elevation IN, no aortic dissection, no PE, no tension pneumothorax, no aortic aneurysm), d/w patient ED course: Patient with what appears to be chest wall soreness following a panic attack. No evidence of acute coronary syndrome. No PE. No pneumothorax. No aortic dissection. No aortic aneurysm. We will have her follow-up with her doctor for further care. Patient counseled regarding signs and symptoms for which I believe and urgent re-evaluation would be necessary. Patient with good understanding of and agreement to plan and is comfortable going home at this time This document was made in part using voice recognition software. While efforts are made to proofread this document, sound alike and grammatical errors may occur. Departure - Departure Disposition: 01 Home, Self Care Clinical Impression: Anxiety Chest pain Qualifiers: Chest pain type: unspecified Qualified Code(s): R07.9 - Chest pain, unspecified Condition: Good Instructions: ED Chest Pain Atypical Unkn Cause, ED Panic Attack Follow-Up: your,doctor in 1 week [Other] Prescriptions: Ibuprofen [Motrin] 800 mg PO Q8H PRN #30 tablet PRN Reason: PAIN &/OR FEVER Ondansetron Odt [Zofran] 4 mg TL Q6H PRN #10 tablet PRN Reason: Nausea / Vomiting Comments: Your tests are normal today. Follow-up with your doctor for further care. You can use Motrin or Tylenol as needed for your chest pain. Discharge Date/Time: 07/22/20 16:09
--- NOTE | 2020-07-22 14:32 | XRAY Report ---
PROCEDURE: Chest 1 View X-Ray INDICATIONS: Chest Pain TECHNIQUE: One view of the chest was acquired. COMPARISON: Abdominal radiograph 02/24/2020. CT abdomen and pelvis 09/05/2019. CXR 07/15/2018. FINDINGS: Surgical changes and devices: None. Lungs and pleura: No pleural effusions or pneumothorax. Lungs appear clear. Mediastinum: Mediastinal contours appear normal. Heart size is unchanged. Bones and chest wall: No suspicious bony lesions. Overlying soft tissues appear unremarkable. IMPRESSION: No acute cardiopulmonary abnormality identified. Reviewed by: Celio Jacobo MD on 07/22/2020 1:31 PM [facility] Approved by: Celio Jacobo MD on 07/22/2020 1:31 PM [facility] Station ID: [id number]
[2020-07-22 14:39] LABS: BASOPHILS # (AUTO) 0.1 10^3/uL (0.0-0.1); BASOPHILS % (AUTO) 0.6 %; EOSINOPHILS # (AUTO) 0.1 10^3/uL (0.0-0.7); LYMPHOCYTES # (AUTO) 2.8 10^3/uL (1.5-3.5); LYMPHOCYTES % (AUTO) 35.7 %; MEAN CORPUSCULAR VOLUME 90.8 fL (81.0-99.0); MONOCYTES # (AUTO) 0.4 10^3/uL (0.0-1.0); MONOCYTES % (AUTO) 5.4 %; NEUTROPHILS # (AUTO) 4.4 10^3/uL (1.5-6.6); PLT - PLATELET COUNT 281 10^3/uL (130-450); RED BLOOD COUNT 4.67 10^6/uL (4.20-5.40); RED CELL DISTRIBUTION WIDTH 14.5 % (12.0-15.0); WHITE BLOOD COUNT 7.8 x10^3/uL (4.8-10.8)
[2020-07-22 14:55] LABS: ALBUMIN 3.9 g/dL (3.2-5.5); ALBUMIN/GLOBULIN RATIO 1.1 (1.0-2.2); BILIRUBIN,TOTAL 0.6 mg/dL (0.2-1.0); CALCIUM 8.9 mg/dL (8.5-10.3); CREATININE 0.8 mg/dL (0.4-1.0); TOTAL PROTEIN 7.6 g/dL (6.7-8.2)
[2020-07-22] MEDS ORDERED: ONDANSETRON ODT 4 MG TABLET TL STA (14:57)
[2020-07-22 16:09] VITALS: BP 116/69
== END 2020-07-22 16:09 | disposition home or self-care (01) ==
LOC: ED 12:33
DX: F41.0 Panic disorder [episodic paroxysmal anxiety] (principal); R07.9 Chest pain, unspecified; R00.8 Other abnormalities of heart beat
CPT/HCPCS: 36415; 71045; 80053; 83690; 84484; 85025; 93005; 99284; A9270; Q0162

== ENCOUNTER 2020-09-18 08:00 | Outpatient (CLI) | payer MEDICARE, MEDICAID | END 2020-09-18 23:59 | disposition home or self-care (01) | LOC: LAB.R 08:00 | PROVIDERS: ATTEND Physician Assistant Medical | DX: N39.0 Urinary tract infection, site not specified (principal) | CPT/HCPCS: 87086; 87181 ==

== ENCOUNTER 2020-09-23 08:00 | Outpatient (CLI) | payer MEDICARE, MEDICAID | END 2020-09-23 23:59 | disposition home or self-care (01) | LOC: LAB.WCP 08:00 | PROVIDERS: ATTEND Family Medicine | DX: N39.0 Urinary tract infection, site not specified (principal) | CPT/HCPCS: 87086 ==

== ENCOUNTER 2020-10-01 08:00 | Outpatient (CLI) | payer MEDICARE, MEDICAID | END 2020-10-01 23:59 | disposition home or self-care (01) | LOC: LAB.WC 08:00 | PROVIDERS: ATTEND Obstetrics & Gynecology | DX: Z53.9 Procedure and treatment not carried out, unspecified reason (principal) ==

== ENCOUNTER 2021-01-22 02:14 | Outpatient (CLI) | payer MEDICARE, MEDICAID | END 2021-01-22 02:15 | disposition critical access hospital (66) | LOC: EMS 02:14 | DX: M79.604 Pain in right leg (principal) | CPT/HCPCS: A0425; A0429 ==

== ENCOUNTER 2021-01-22 02:53 | Emergency (ER) | payer MEDICARE, MEDICAID ==
[2021-01-22] MEDS ORDERED: CHERRY SYRUP 10 ML UDC PO ONE (03:20)
[2021-01-22] MEDS ORDERED: KETOROLAC 60 MG/2 ML VIAL IM STA (03:20)
[2021-01-22] MEDS ORDERED: DEXAMETHASONE 10 MG/ML VIAL PO STA (03:20)
--- NOTE | 2021-01-22 03:23 | ED Physician Documentation ---
PD HPI BACK PAIN - Stated complaint Stated Complaint: R LEG PX - Chief complaint Chief Complaint: Ext Problem - History obtained from History obtained from: Patient - History of Present Illness Timing - onset: How many years ago (1) Timing - duration: Years (1) Timing - details: Gradual onset, Still present, Waxing and waning Location: Lower, Right Quality: Spasm, Sharp, Similar to prior episodes Associated symptoms: Numbness. No: Fever, Weakness, Incontinent of urine, Unab le to urinate, Hematuria, Incontinent of stool Improves with: Rest, Position, Meds Worsened by: Movement Contributing factors: Lifting, Twisting Similar symptoms before: Diagnosis (sciatica) Recently seen: Not recently seen - Additional information Additional information: 65-year-old female has had problems with pain in her lower back and pain down both legs for the past year she is recently had some improvement where she is not having pain in the left leg anymore and she is having worse pain in the right leg. Her pain was bad enough this evening she was unable to sleep and she has called the ambulance for transport to the hospital for treatment and evaluation. She has not had MRI of her back and she has not had prior epidural steroid injection she has had physical therapy. She is currently between primary care doctors and expects to see Dr. Viviane Wilkinson this February. Review of Systems Constitutional: denies: Fever Eyes: denies: Decreased vision Ears: denies: Ear pain Nose: denies: Rhinorrhea / runny nose, Congestion Throat: denies: Sore throat Cardiac: denies: Chest pain / pressure Respiratory: denies: Dyspnea, Cough GI: denies: Abdominal Pain, Nausea, Vomiting, Constipation, Diarrhea : denies: Dysuria, Frequency Musculoskeletal: reports: Back pain, Extremity pain. denies: Neck pain Neurologic: reports: Numbness. 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: None : None HEENT: None Psych: Depression, Anxiety Musculoskeletal: Osteoarthritis Derm: None - Past Surgical History Past Surgical History: Yes General: Other Ortho: Other /COILED TUBING OPERATOR: section HEENT: Tonsil/Adenoidectomy - Present Medications Home Medications: Ambulatory Orders Medication Instructions Recorded Confirmed Estrogens, Conjugated Cream 30 gm VG QPM PRN 30 Days #1 tube 07/01/20 07/22/20 [Premarin Cream] Ibuprofen [Motrin] 800 mg PO Q8H PRN #30 tablet 07/22/20 Cyclobenzaprine [Flexeril] 10 mg PO TID PRN #20 tablet 01/22/21 HYDROcod/ACETAM 5/325 [[place] 5/325] 1 - 2 tablet PO Q6H PRN #14 tablet 01/22/21 - Allergies Allergies/Adverse Reactions: Allergies Allergy/AdvReac Type Severity Reaction Status Date / Time paroxetine HCl * [From Paxil] AdvReac Intermediate "like im Verified 07/22/20 12:41 crawling out of my skin" escitalopram oxalate * AdvReac Unknown Verified 07/22/20 12:41 [From Lexapro] - Social History Does the pt smoke?: No Smoking Status: Never smoker Does the pt drink ETOH?: No Does the pt have substance abuse?: No - Immunizations Immunizations are current?: Yes - POLST Patient has POLST: No PD ED PE NORMAL - Vitals Vital signs reviewed: Yes (normal ) - General General: Alert and oriented X 3, Well developed/nourished, Other (Appears to be in pain with aircraft power plant assembler tone and flattened affect) - HEENT HEENT: Atraumatic, PERRL, EOMI - Neck Neck: Supple, no meningeal sign, No bony TTP - Respiratory Respiratory: No respiratory distress - Back Back: No CVA TTP, No spinal TTP, Other (There is pain to the paraspinous muscles at the very end of the lumbar spine extending into the sciatic notch.) - Derm Derm: Normal color, Warm and dry, No rash - Extremities Extremities: No deformity, No edema - Neuro Neuro: Alert and oriented X 3, media technician 2-12 intact, Normal speech, Other (There is a decreased dorsiflexion strength on the right compared to the left) Eye Opening: Spontaneous Motor: Obeys Commands Verbal: Oriented GCS Score: 15 - Psych Psych: Normal mood, Normal affect Results - Vitals Vitals: Vital Signs - 24 hr 01/22/21 03:00 Temperature 36.1 C L Heart Rate 70 Respiratory 14 Rate Blood Pressure 114/64 O2 Saturation 98 Oxygen O2 Source Room air PD MEDICAL DECISION MAKING - ED course Complexity details: reviewed results, re-evaluated patient, considered differential, d/w patient ED course: 65-year-old female with a history of sciatica on the right side for the past year has worsening of her symptoms she is unable to sleep and takes ambulance to the hospital in the middle of the night. She is administered dexamethasone and Toradol with marked improvement in her pain. We will place her on a short course of pain medication and muscle relaxant and I have encouraged the patient to ask her primary care doctor about obtaining an MRI for the potential of obtaining epidural steroid injection. Departure - Departure Disposition: 01 Home, Self Care Clinical Impression: Sciatica Qualifiers: Laterality: right Qualified Code(s): M54.31 - Sciatica, right side Condition: Stable Instructions: ED Sciatica Follow-Up: Ernestine Wilkinson MD [Provider Admit Priv/Credential] - Prescriptions: Cyclobenzaprine [Flexeril] 10 mg PO TID PRN #20 tablet PRN Reason: Spasms HYDROcod/ACETAM 5/325 [[place] 5/325] 1 - 2 tablet PO Q6H PRN #14 tablet PRN Reason: Pain
[2021-01-22 05:57] VITALS: BP 109/75
== END 2021-01-22 05:56 | disposition home or self-care (01) ==
LOC: EDUNIT# → ED 02:53
DX: M54.31 Sciatica, right side (principal)
CPT/HCPCS: 96372; 99283; 99284; A9270

== ENCOUNTER 2021-02-13 12:32 | Emergency (ER) | payer MEDICARE, MEDICAID ==
[2021-02-13] MEDS ORDERED: LORazepam 1 MG TABLET PO STA (15:40)
--- NOTE | 2021-02-13 15:41 | ED Physician Documentation ---
History of Present Illness - Stated complaint Stated Complaint: MEDICATION REFILL - Chief complaint Chief Complaint: General - History obtained from History obtained from: Patient - Additonal information Additional information: 65-year-old woman presents with ongoing right-sided chest pain that she thinks are due to panic attacks. She says she was seen in [place] for same a week or 2 ago and prescribed something for anxiety, she does not know what but does state that it worked. Pain is in the right upper quadrant and occasionally radiates to the left arm when it is particularly bad. It is not worse after eating. She still has her gallbladder. There is no shortness of breath. Review of Systems Ten Systems: 10 systems reviewed and negative Constitutional: reports: Reviewed and negative Eyes: reports: Reviewed and negative Nose: reports: Reviewed and negative PD PAST MEDICAL HISTORY - Past Medical History Cardiovascular: None Respiratory: Pneumonia Neuro: Headaches Endocrine/Autoimmune: None GI: Ulcers ADVICE NURSE: None : None HEENT: None Psych: Depression, Anxiety Musculoskeletal: Osteoarthritis Derm: None - Past Surgical History Past Surgical History: Yes General: Other Ortho: Other /ADVICE NURSE: section HEENT: Tonsil/Adenoidectomy - Present Medications Home Medications: Ambulatory Orders Medication Instructions Recorded Confirmed Estrogens, Conjugated Cream 30 gm VG QPM PRN 30 Days #1 tube 07/01/20 07/22/20 [Premarin Cream] Ibuprofen [Motrin] 800 mg PO Q8H PRN #30 tablet 07/22/20 Cyclobenzaprine [Flexeril] 10 mg PO TID PRN #20 tablet 01/22/21 HYDROcod/ACETAM 5/325 [[place] 5/325] 1 - 2 tablet PO Q6H PRN #14 tablet 01/22/21 LORazepam [Ativan] 1 mg PO TID PRN #12 tablet 02/13/21 - Allergies Allergies/Adverse Reactions: Allergies Allergy/AdvReac Type Severity Reaction Status Date / Time paroxetine HCl * [From Paxil] AdvReac Intermediate "like im Verified 02/13/21 12:42 crawling out of my skin" escitalopram oxalate * AdvReac Unknown Verified 02/13/21 12:42 [From Lexapro] - Social History Does the pt smoke?: No Smoking Status: Never smoker Does the pt drink ETOH?: No Does the pt have substance abuse?: No - Immunizations Immunizations are current?: Yes - POLST Patient has POLST: No PD ED PE NORMAL - Vitals Vital signs reviewed: Yes - General General: Alert and oriented X 3, No acute distress - HEENT HEENT: PERRL, EOMI - Neck Neck: Supple, no meningeal sign, No bony TTP - Cardiac Cardiac: RRR, No murmur - Respiratory Respiratory: No respiratory distress, Clear bilaterally - Abdomen Abdomen: Other (Focally tender in the right upper quadrant without guarding or rebound) - Back Back: No CVA TTP, No spinal TTP - Derm Derm: Normal color, Warm and dry - Extremities Extremities: No edema, No calf tenderness / cord - Neuro Neuro: Alert and oriented X 3, Normal speech Results - Vitals Vitals: Vital Signs - 24 hr 02/13/21 02/13/21 12:39 16:08 Temperature 36.4 C L 36.8 C Heart Rate 79 75 Respiratory 20 12 Rate Blood Pressure 127/83 H 127/64 O2 Saturation 97 98 Oxygen O2 Source Room air - EKG (time done) 1553 Rate: Rate (enter#) (75) Rhythm: NSR (With multiple PVCs) [place]: Normal Intervals: Normal MD QRS: Normal Ischemia: Q waves (Inferior and anterior). No: ST elevation c/w ischemia, ST depression Computer interpretation: Agree with computer - Labs Labs: Laboratory Tests 02/13/21 02/13/21 02/13/21 15:51 15:51 15:51 WBC 6.4 RBC 4.85 Hgb 14.2 Hct 43.8 MCV 90.3 MCH 29.3 MCHC 32.4 RDW 14.6 Plt Count 270 MPV 10.0 Neut # (Auto) 3.0 Lymph # (Auto) 2.7 [place] # (Auto) 0.5 Eos # (Auto) 0.2 Baso # (Auto) 0.1 Absolute Nucleated RBC 0.00 Nucleated RBC % 0.0 Sodium 139 Potassium 3.8 Chloride 101 Carbon Dioxide 29 Anion Gap 9.0 BUN 15 Creatinine 0.7 Estimated GFR (MDRD) 84 L Glucose 127 H Calcium 9.1 Total Bilirubin 0.7 AST 35 ALT 40 Alkaline Phosphatase 70 Troponin I High Sens 4.1 Total Protein 7.4 Albumin 4.0 Globulin 3.4 Albumin/Globulin Ratio 1.2 Lipase 33 PD MEDICAL DECISION MAKING - ED course ED course: She thinks this pain is from anxiety which it may well be but the focal nature in the right upper quadrant is a little odd, so we will check her gallbladder as well as routine cardiac labs. Unfortunately there was a significant delay to ultrasound on the patient's declined to wait any further, given that her labs are normal from a biliary perspective I do not think there is any fraser to obtaining an ultrasound. Departure - Departure Disposition: 01 Home, Self Care Clinical Impression: Anxiety, Abdominal pain Condition: Good Record reviewed to determine appropriate education?: Yes Instructions: ED Panic Attack Prescriptions: LORazepam [Ativan] 1 mg PO TID PRN #12 tablet PRN Reason: Anxiety Comments: Return if you worsen, again we have not completely ruled out a gallbladder issue given the location of your pain. That said with normal labs even if the pain is from your gallbladder is probably not a true urgency. So consider following up with your doctor for an ultrasound of your gallbladder or return when you had more time.
[2021-02-13 15:56] LABS: BASOPHILS # (AUTO) 0.1 10^3/uL (0.0-0.1); BASOPHILS % (AUTO) 0.8 %; EOSINOPHILS # (AUTO) 0.2 10^3/uL (0.0-0.7); EOSINOPHILS % (AUTO) 2.5 %; HCT - HEMATOCRIT 43.8 % (37.0-47.0); HGB - HEMOGLOBIN 14.2 g/dL (12.0-16.0); LYMPHOCYTES # (AUTO) 2.7 10^3/uL (1.5-3.5); LYMPHOCYTES % (AUTO) 42.1 %; MEAN CORPUSCULAR HEMOGLOBIN 29.3 pg (27.0-31.0); MEAN CORPUSCULAR HGB CONC 32.4 g/dL (32.0-36.0); MEAN CORPUSCULAR VOLUME 90.3 fL (81.0-99.0); MONOCYTES # (AUTO) 0.5 10^3/uL (0.0-1.0); MONOCYTES % (AUTO) 7.6 %; NEUTROPHILS % (AUTO) 46.8 %; PLT - PLATELET COUNT 270 10^3/uL (130-450); RED BLOOD COUNT 4.85 10^6/uL (4.20-5.40); RED CELL DISTRIBUTION WIDTH 14.6 % (12.0-15.0); WHITE BLOOD COUNT 6.4 x10^3/uL (4.8-10.8)
[2021-02-13 16:09] VITALS: BP 127/64
[2021-02-13 16:09] LABS: ALBUMIN/GLOBULIN RATIO 1.2 (1.0-2.2); BILIRUBIN,TOTAL 0.7 mg/dL (0.2-1.0); CALCIUM 9.1 mg/dL (8.5-10.3); CREATININE 0.7 mg/dL (0.4-1.0); POTASSIUM 3.8 mmol/L (3.5-5.0); TOTAL PROTEIN 7.4 g/dL (6.7-8.2)
== END 2021-02-13 17:13 | disposition home or self-care (01) ==
LOC: ED 12:32
DX: R10.11 Right upper quadrant pain (principal); F41.9 Anxiety disorder, unspecified; R07.9 Chest pain, unspecified; I49.3 Ventricular premature depolarization
CPT/HCPCS: 36415; 80053; 83690; 84484; 85025; 93005; 99283; J8499

== ENCOUNTER 2021-03-05 07:29 | Outpatient (CLI) | payer MEDICARE, MEDICAID ==
--- NOTE | 2021-03-05 11:32 | Ultrasound Report ---
PROCEDURE: Abdomen Limited INDICATIONS: NAUSEA/ABD PAIN TECHNIQUE: Real-time focused scanning was performed of the abdomen, with image documentation. COMPARISON: 02/23/2018 FINDINGS: Liver is normal in size and homogeneous in echotexture. Liver is diffusely echogenic. Gallbladder sonographically normal. No gallstones. No gallbladder wall thickening with gallbladder wa ll measuring 1.9 mm. No pericholecystic fluid. No sonographic Mccall sign. Biliary tree is nondilated. Common bile duct measures 5.6 mm. Pancreatic head and body are sonographically normal. Tail is obscured by bowel gas and cannot be eval uated. Limited evaluation of the right kidney is within normal limits. IMPRESSION: 1. No sonographic evidence of cholelithiasis or cholecystitis. If there is continued clinical concern for cholecystitis, a nuclear medicine HIDA scan should be considered for further evaluation. 2. Echogenic liver. Finding typically represents fatty infiltration, however finding is nonspecific a nd other etiologies including hepatic cirrhosis can produce a similar appearance. Recommend correlati on with clinical and laboratory data. Reviewed by: Robina Morelos MD, PhD on 03/05/2021 11:31 AM PDT Approved by: Robina Morelos MD, PhD on 03/05/2021 11:31 AM PDT Station ID: [id number]
== END 2021-03-05 07:30 | disposition home or self-care (01) ==
LOC: DI 07:29
PROVIDERS: ATTEND Internal Medicine
DX: R11.0 Nausea (principal); R10.9 Unspecified abdominal pain

== ENCOUNTER 2021-04-10 10:25 | Emergency (ER) | payer MEDICARE, MEDICAID ==
--- NOTE | 2021-04-10 11:43 | ED Physician Documentation ---
History of Present Illness - Stated complaint Stated Complaint: RT LEG PX - Chief complaint Chief Complaint: Ext Problem - Additonal information Additional information: 66-year-old female return to the emergency department for evaluation of chronic right leg pain. She states that she has had it for at least 5 to 6 months. She often feels a cramping in her right thigh that radiates to her knee and calf. She has been seen in this ER for similar in the past and she also reportedly had followed up with her primary doctor and had "lots of testing and physical therapy" but did not find any of it effective or find a known cause. She has been prescribed a muscle relaxer in the past which was helpful. No recent falls or trauma. Patient at times does require a cane for ambulation with the right leg pain. There is been no swelling or fevers. No history of DVT or cancer. Pt is a globally poor historian. Review of Systems Constitutional: reports: Reviewed and negative Ears: reports: Reviewed and negative Nose: reports: Reviewed and negative Throat: reports: Reviewed and negative Cardiac: reports: Reviewed and negative Respiratory: reports: Reviewed and negative Musculoskeletal: reports: Extremity pain. denies: Extremity swelling Neurologic: denies: Generalized weakness, Focal weakness, Numbness PD PAST MEDICAL HISTORY - Past Medical History Cardiovascular: None Respiratory: Pneumonia Neuro: Headaches Endocrine/Autoimmune: None GI: Ulcers SYSTEMS TRAINER: None : None HEENT: None Psych: Depression, Anxiety Musculoskeletal: Osteoarthritis Derm: None - Past Surgical History Past Surgical History: Yes General: Other Ortho: Other /SYSTEMS TRAINER: section HEENT: Tonsil/Adenoidectomy - Present Medications Home Medications: Ambulatory Orders Medication Instructions Recorded Confirmed Estrogens, Conjugated Cream 30 gm VG QPM PRN 30 Days #1 tube 07/01/20 07/22/20 [Premarin Cream] Ibuprofen [Motrin] 800 mg PO Q8H PRN #30 tablet 07/22/20 Cyclobenzaprine [Flexeril] 10 mg PO TID PRN #20 tablet 01/22/21 HYDROcod/ACETAM 5/325 [[place] 5/325] 1 - 2 tablet PO Q6H PRN #14 tablet 01/22/21 LORazepam [Ativan] 1 mg PO TID PRN #12 tablet 02/13/21 Cyclobenzaprine [Flexeril] 10 mg PO TID PRN #20 tablet 04/10/21 - Allergies Allergies/Adverse Reactions: Allergies Allergy/AdvReac Type Severity Reaction Status Date / Time paroxetine HCl * [From Paxil] AdvReac Intermediate "like im Verified 04/10/21 10:35 crawling out of my skin" escitalopram oxalate * AdvReac Unknown Verified 04/10/21 10:35 [From Lexapro] - Social History Does the pt smoke?: No Smoking Status: Never smoker Does the pt drink ETOH?: No Does the pt have substance abuse?: No - Immunizations Immunizations are current?: Yes - POLST Patient has POLST: No PD ED PE EXPANDED - General General: Alert, No acute distress - Back Back: Other (Full range of motion of the lower lumbar spine with forward flexion. No tenderness elicited the paraspinous muscles, at the SI notch or vertebral bodies. Motor strength 5 of 5 bilateral lower extremities 2+ patellar reflex bilaterally. Mildly antalgic gait right leg.). No: Vertebral tenderness, Soft tissue tenderness - Extremities Extremities: Right leg (FULL ROM at hip with passive and external rotation eliciting no tenderness. Normal flexion/extension knee. no swellign, erythema. no calf pain tenderness) Results - Vitals Vitals: Vital Signs - 24 hr 04/10/21 10:32 Temperature 36.0 C L Heart Rate 85 Respiratory 16 Rate Blood Pressure 122/75 O2 Saturation 95 Oxygen O2 Source Room air PD MEDICAL DECISION MAKING - ED course Complexity details: reviewed results, d/w patient ED course: 66-year-old female presents the emergency department for evaluation of now chronic right leg pain with no clear etiology. Today on exam the pain does not seem to be emanating from the low back. No tenderness was elicited negative straight leg bilaterally and no tenderness at the SI notch. She reports often a cramping sensation that begins in her thigh and radiates down the leg. There is no swelling erythema posterior calf pain tenderness to suggest a DVT. This is also less likely given the chronicity of the symptoms. Patient is however globally poor historian. She has found some relief in the past with a muscle relaxer thus will write prescribe some Flexeril today. Advised continuation of the Tylenol or ibuprofen and continue to follow-up with her PCP. Further evaluation may be warranted through physical therapy or neurology. She may benefit from EMG testing or an MRI of this lower extremity. Departure - Departure Disposition: 01 Home, Self Care Clinical Impression: Right leg pain Condition: Stable Record reviewed to determine appropriate education?: Yes Follow-Up: Ernestine Wilkinson MD [Primary Care Provider] - Prescriptions: Cyclobenzaprine [Flexeril] 10 mg PO TID PRN #20 tablet PRN Reason: Spasms Comments: Cassandra dewitt are seen in the emergency department today for chronic pain in your right leg. On exam there does not appear to be any swelling or signs of infection. The pain also does not seem to be coming from your back. You often describe a cramping pain in the leg. Recently your blood test and electrolytes have been normal. You have found some relief of the pain in the past with a muscle relaxer so I am prescribing that again today. However it is very important continue follow-up with your primary care provider to try and determine the root of this leg pain. Your primary provider may want to make another referral for you to physical therapy or consider other testing such as an MRI or EMG testing which is not available through the emergency department. If at any point you have swelling of the leg, redness in the leg, any red streaking, fevers, chest pain or shortness of air then please return immediately to the ER for a second look.
[2021-04-10 11:50] VITALS: BP 120/72
== END 2021-04-10 11:49 | disposition home or self-care (01) ==
LOC: ED 10:25
DX: M79.661 Pain in right lower leg (principal)
CPT/HCPCS: 99282; 99283

== ENCOUNTER 2021-05-09 08:00 | Outpatient (CLI) | payer MEDICARE, MEDICAID ==
[2021-05-09 21:31] LABS: BILIRUBIN,URINE NEGATIVE (NEGATIVE); GLUCOSE, URINE (UA) NEGATIVE (NEGATIVE); KETONES,URINE (UA) NEGATIVE (NEGATIVE); LEUKOCYTE ESTERASE, URINE MODERATE (NEGATIVE); NITRITE,URINE POSITIVE (NEGATIVE); OCCULT BLOOD,URINE TRACE-INTA (NEGATIVE); PROTEIN,URINE NEGATIVE (NEGATIVE); UROBILINOGEN,URINE 0.2 (NORMAL) E.U./dL (NORMAL)
[2021-05-09 21:46] LABS: BACTERIA,URINE Many /HPF (None Seen); CLARITY,URINE CLOUDY (CLEAR); RBC,URINE 0-5 /HPF (0-5); SQUAMOUS EPITHELIAL CELL,UR FEW Squamous (<= Few); WBC,URINE >25 /HPF (0-5)
[2021-05-09 23:32] LABS: BACTERIAL VAGINOSIS DNA NEGATIVE (NEGATIVE); CANDIDA GLABRATA DNA NEGATIVE (NEGATIVE); CANDIDA GROUP DNA NEGATIVE (NEGATIVE); CANDIDA KRUSEI DNA NEGATIVE (NEGATIVE); TRICHOMONAS VAGINALIS DNA NEGATIVE (NEGATIVE)
== END 2021-05-09 23:59 | disposition home or self-care (01) ==
LOC: LAB.N 08:00
PROVIDERS: ATTEND Family Medicine
DX: R39.9 Unspecified symptoms and signs involving the genitourinary system (principal)
CPT/HCPCS: 81001; 87077; 87086; 87181; 87661; 87801

== ENCOUNTER 2021-06-27 08:00 | Outpatient (CLI) | payer MEDICARE, MEDICAID ==
[2021-06-27 16:47] LABS: BILIRUBIN,URINE NEGATIVE (NEGATIVE); GLUCOSE, URINE (UA) NEGATIVE (NEGATIVE); KETONES,URINE (UA) NEGATIVE (NEGATIVE); LEUKOCYTE ESTERASE, URINE NEGATIVE (NEGATIVE); NITRITE,URINE NEGATIVE (NEGATIVE); OCCULT BLOOD,URINE NEGATIVE (NEGATIVE); PROTEIN,URINE NEGATIVE (NEGATIVE); UROBILINOGEN,URINE 0.2 (NORMAL) E.U./dL (NORMAL)
[2021-06-27 16:48] LABS: CLARITY,URINE CLEAR (CLEAR)
== END 2021-06-27 23:59 | disposition home or self-care (01) ==
LOC: LAB.R 08:00
PROVIDERS: ATTEND Internal Medicine
DX: R07.9 Chest pain, unspecified (principal); R39.9 Unspecified symptoms and signs involving the genitourinary system
CPT/HCPCS: 81001; 81003; 85379; 87086

== ENCOUNTER 2021-06-27 17:11 | Emergency (ER) | payer MEDICARE, MEDICAID ==
[2021-06-27] MEDS ORDERED: IOVERSOL 320 100 ML VIAL IVP ONE ×2 (17:48→18:55)
[2021-06-27 17:56] LABS: BASOPHILS # (AUTO) 0.1 10^3/uL (0.0-0.1); BASOPHILS % (AUTO) 0.7 %; EOSINOPHILS # (AUTO) 0.3 10^3/uL (0.0-0.7); EOSINOPHILS % (AUTO) 3.4 %; HCT - HEMATOCRIT 41.5 % (37.0-47.0); HGB - HEMOGLOBIN 13.8 g/dL (12.0-16.0); LYMPHOCYTES # (AUTO) 3.1 10^3/uL (1.5-3.5); LYMPHOCYTES % (AUTO) 42.1 %; MEAN CORPUSCULAR HEMOGLOBIN 29.7 pg (27.0-31.0); MEAN CORPUSCULAR HGB CONC 33.3 g/dL (32.0-36.0); MEAN CORPUSCULAR VOLUME 89.4 fL (81.0-99.0); MEAN PLATELET VOLUME 9.6 fL (7.9-10.8); MONOCYTES # (AUTO) 0.5 10^3/uL (0.0-1.0); NEUTROPHILS # (AUTO) 3.5 10^3/uL (1.5-6.6); NEUTROPHILS % (AUTO) 46.7 %; PLT - PLATELET COUNT 267 10^3/uL (130-450); RED BLOOD COUNT 4.64 10^6/uL (4.20-5.40); RED CELL DISTRIBUTION WIDTH 13.5 % (12.0-15.0); WHITE BLOOD COUNT 7.4 x10^3/uL (4.8-10.8)
[2021-06-27 18:09] LABS: ALBUMIN 4.2 g/dL (3.2-5.5); ALBUMIN/GLOBULIN RATIO 1.2 (1.0-2.2); BILIRUBIN,TOTAL 0.5 mg/dL (0.2-1.0); CREATININE 0.7 mg/dL (0.4-1.0); POTASSIUM 3.6 mmol/L (3.5-5.0); TOTAL PROTEIN 7.7 g/dL (6.7-8.2)
--- NOTE | 2021-06-27 19:25 | ED Physician Documentation ---
PD HPI CHEST PAIN - Stated complaint Stated Complaint: POSITIVE D DIMER - Chief complaint Chief Complaint: Cardiac - History obtained from History obtained from: Patient - History of Present Illness Timing - onset: How many weeks ago (2) Timing - duration: Weeks (2) Timing - details: Gradual onset Pain level max: 6 Pain level now: 5 Quality: Aching, Sharp Location: Left chest Radiation: No: Jaw, Neck, Back, Abdominal, Left upper extremity, Right upper extremity Improved by: Rest Worsened by: Movement, Palpation Associated symptoms: No: Shortness of air, Diaphoresis, Nausea, Vomiting, Feeling faint / dizzy, General Weakness, Palpitations, Cough - Additional information Additional information: Patient is a 66-year-old female who was sent into the emergency department by her doctor for left-sided chest pain for the past 2 weeks. Elevated D-dimer on outpatient testing. Sent here for rule out PE. The patient states that the pain is aching and sharp. Worse with movement and palpation. Is on the left anterior chest wall. Nonradiating. 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 : None HEENT: None Psych: Depression, Anxiety Musculoskeletal: Osteoarthritis Derm: None - Past Surgical History Past Surgical History: Yes General: Other Ortho: Other /DIESEL SERVICE APPRENTICE: section HEENT: Tonsil/Adenoidectomy - Present Medications Home Medications: Ambulatory Orders Medication Instructions Recorded Confirmed Estrogens, Conjugated Cream 30 gm VG QPM PRN 30 Days #1 tube 07/01/20 07/22/20 [Premarin Cream] Ibuprofen [Motrin] 800 mg PO Q8H PRN #30 tablet 07/22/20 Cyclobenzaprine [Flexeril] 10 mg PO TID PRN #20 tablet 01/22/21 HYDROcod/ACETAM 5/325 [[place] 5/325] 1 - 2 tablet PO Q6H PRN #14 tablet 01/22/21 LORazepam [Ativan] 1 mg PO TID PRN #12 tablet 02/13/21 Cyclobenzaprine [Flexeril] 10 mg PO TID PRN #20 tablet 04/10/21 HYDROcod/ACETAM 5/325 [[place] 5/325] 1 - 2 ea PO Q6H PRN #9 tablet 06/27/21 Meloxicam [Mobic] 15 mg PO DAILY PRN #20 tablet 06/27/21 - Allergies Allergies/Adverse Reactions: Allergies Allergy/AdvReac Type Severity Reaction Status Date / Time paroxetine HCl * [From Paxil] AdvReac Intermediate "like im Verified 06/27/21 17:31 crawling out of my skin" escitalopram oxalate * AdvReac Unknown Verified 06/27/21 17:31 [From Lexapro] - Social History Does the pt smoke?: No Smoking Status: Never smoker Does the pt drink ETOH?: No Does the pt have substance abuse?: No - Immunizations Immunizations are current?: Yes - POLST Patient has POLST: No PD ED PE NORMAL - Vitals Vital signs reviewed: Yes - General General: Alert and oriented X 3, No acute distress, Well developed/nourished - HEENT HEENT: PERRL, Moist mucous membranes - Neck Neck: Supple, no meningeal sign - Cardiac Cardiac: RRR, Strong equal pulses - Respiratory Respiratory: No respiratory distress, Clear bilaterally - Abdomen Abdomen: Soft, Non tender, Non distended - Derm Derm: Warm and dry - Extremities Extremities: No edema, No calf tenderness / cord - Neuro Neuro: Alert and oriented X 3 - Psych Psych: Normal mood, Normal affect - Free text exam Free text exam: Tender to palpation over the left anterior chest wall. Reproduces her pain. No crepitus. No ecchymosis. no skin changes Results - Vitals Vitals: Vital Signs - 24 hr 06/27/21 06/27/21 06/27/21 17:29 18:31 19:03 Temperature 36.6 C Heart Rate 95 78 77 Respiratory 20 17 17 Rate Blood Pressure 137/87 H 106/77 124/76 O2 Saturation 97 96 97 06/27/21 20:26 Temperature Heart Rate 97 Respiratory 16 Rate Blood Pressure 106/88 H O2 Saturation 100 Oxygen O2 Source Room air - EKG (time done) 1819 Rate: Rate (enter#) (82) Rhythm: NSR, Other (PVC, trigeminy) [place]: Normal Intervals: Normal [place] QRS: Normal Ischemia: Normal ST segments - Labs Labs: Laboratory Tests 06/27/21 06/27/21 06/27/21 17:46 17:46 17:46 WBC 7.4 RBC 4.64 Hgb 13.8 Hct 41.5 MCV 89.4 MCH 29.7 MCHC 33.3 RDW 13.5 Plt Count 267 MPV 9.6 Neut # (Auto) 3.5 Lymph # (Auto) 3.1 [place] # (Auto) 0.5 Eos # (Auto) 0.3 Baso # (Auto) 0.1 Absolute Nucleated RBC 0.00 Nucleated RBC % 0.0 Sodium 138 Potassium 3.6 Chloride 100 L Carbon Dioxide 27 Anion Gap 11.0 BUN 14 Creatinine 0.7 Estimated GFR (MDRD) 83 L Glucose 116 H Calcium 9.0 Total Bilirubin 0.5 AST 23 ALT 20 Alkaline Phosphatase 65 Troponin I High Sens 4.5 Total Protein 7.7 Albumin 4.2 Globulin 3.5 Albumin/Globulin Ratio 1.2 Lipase 38 - Rads (name of study) ct pulm angio Radiology: Final report received, EMP read contemporaneously, See rad report PD MEDICAL DECISION MAKING - ED course Complexity details: reviewed results, re-evaluated patient, considered differential, d/w patient ED course: Possible costochondritis. No evidence of PE. Patient counseled regarding the thyroid nodule. She will follow up with her doctor for further care about this. Patient counseled regarding signs and symptoms for which I believe and urgent re-evaluation would be necessary. Patient with good understanding of and agreement to plan and is comfortable going home at this time This document was made in part using voice recognition software. While efforts are made to proofread this document, sound alike and grammatical errors may occur. 66-year-old female with left chest wall pain. Will prescribe anti- inflammatories for home. IMPRESSION: 1. No pulmonary embolus. 2. Parenchymal pathology. 3. Mild cardiomegaly. 4. Right thyroid nodule. Recommend thyroid ultrasound as an outpatient for follow-up if this has not been previously evaluated. 5. 2 nonobstructing left upper pole intrarenal calculi. Departure - Departure Disposition: Home, Self Care Clinical Impression: Chest wall pain, Thyroid nodule Condition: Good Instructions: ED Chest Pain Costochondritis Follow-Up: your,doctor in 1 week [Other] Prescriptions: Meloxicam [Mobic] 15 mg PO DAILY PRN #20 tablet PRN Reason: pain HYDROcod/ACETAM 5/325 [[place] 5/325] 1 - 2 ea PO Q6H PRN #9 tablet PRN Reason: Pain Comments: Follow up with your doctor for further care. Return if you worsen. Your testing does not show any acute abnormalities tonight. You will need to follow up with Dr. Wilkinson for an ultrasound of your thyroid. Your prescriptions were sent to [facility] in [place]. CT results: IMPRESSION: 1. No pulmonary embolus. 2. Parenchymal pathology. 3. Mild cardiomegaly. 4. Right thyroid nodule. Recommend thyroid ultrasound as an outpatient for follow-up if this has not been previously evaluated. 5. 2 nonobstructing left upper pole intrarenal calculi. I am prescribing a short course of narcotic pain medication for you. These are potentially dangerous and addictive medications that should be used carefully. These medications may constipate you. Take an [id number] stool softener (docusate) twice daily with plenty of water while taking these medications. If you go 24 hours without a bowel movement, take [id number]-[id number] miralax, per package instructions. Do not drink or drive while taking these medications. If you received narcotic or sedating medications while in the emergency department, do not drive for 24 hours. Store this medication in a safe, secure place and out of reach of children. It is a violation of federal law to give or sell this medication to another person or to use in a manner other than prescribed. The ED will not refill narcotic prescriptions, including prescriptions lost or stolen. To dispose of unwanted medications: 1. [facility] at [address] in [place] has a medication drop box. They accept prescription medications (in pil l form) Wednesday through Wednesday 9:00 a.m. to 5:00 p.m. 2. The [facility] [employer] [facility] accepts prescription medications (in pill form only) for disposal year round. Call for more information. 3. Contact the [facility] for the next [facility] sponsored prescription drug collection event. , [phone], or [phone]; Discharge Date/Time: 06/27/21 20:38
--- NOTE | 2021-06-27 19:42 | CT Report ---
PROCEDURE: ANGIO CHEST W/WO INDICATIONS: chest pain, elev d-dimer CONTRAST: IV CONTRAST: Optiray 320 ml: 80 PO CONTRAST: *NO PO CONTRAST TECHNIQUE: After the administration of intravenous contrast, 2 mm axial images were acquired from the pulmonary apices to the posterior costophrenic angles during the arterial phase. In addition, 1 mm lung kernel and 5 mm soft tissue kernel reconstructions were performed. 3-dimensional coronal oblique maximum int ensity projection (MIP) reformats, 8 mm axial MIP, and 5 mm coronal and sagittal MPR reformats were t hen performed through the thorax. For radiation dose reduction, the following was used: automated exp osure control, adjustment of mA and/or kV according to patient size. COMPARISON: None FINDINGS: Image quality: Excellent. Pulmonary arteries: Pulmonary arteries are normal in size, and demonstrate no intraluminal filling d efects to suggest central pulmonary embolism. Lungs and pleura: Lungs are clear. No pleural effusions or pneumothorax. Central and peripheral ai rways are patent. Mediastinum: Heart size is enlarged, without pericardial effusion. No mediastinal or hilar adenopat hy. Thoracic aorta is normal in caliber and enhancement. Esophagus is normal in caliber, without hi atal hernia. Bones and chest wall: No suspicious bony lesions. Ribs and thoracic spine appear intact throughout. No axillary or supraclavicular adenopathy. The thyroid contains a right lower pole nodule. Abdomen: 2 nonobstructing left upper pole intrarenal calculi. Small parenchymal scar in the left upp er pole cortex. The unenhanced upper abdominal organs appear otherwise normal. Visualized upper abdom inal solid organs appear normal in the early arterial phase of enhancement. IMPRESSION: 1. No pulmonary embolus. 2. Parenchymal pathology. 3. Mild cardiomegaly. 4. Right thyroid nodule. Recommend thyroid ultrasound as an outpatient for follow-up if this has not been previously evaluated. 5. 2 nonobstructing left upper pole intrarenal calculi. Reviewed by: Shelby Shearer MD on 06/27/2021 7:41 PM PST Approved by: Shelby Shearer MD on 06/27/2021 7:41 PM PST Station ID: [id number]
[2021-06-27] MEDS ORDERED: HYDROcod/ACETAM 5/325 MG TABLET PO STA (20:04)
[2021-06-27 20:27] VITALS: BP 106/88
== END 2021-06-27 20:38 | disposition home or self-care (01) ==
LOC: ED 17:11
DX: R07.89 Other chest pain (principal); E04.1 Nontoxic single thyroid nodule; R39.9 Unspecified symptoms and signs involving the genitourinary system
CPT/HCPCS: 36415; 71275; 80053; 81003; 83690; 84484; 85025; 85379; 93005; 99284; A9270; Q9967; 81001; 87086

== ENCOUNTER 2021-07-09 14:25 | Outpatient (CLI) | payer MEDICARE, MEDICAID ==
[2021-07-09 20:19] LABS: BACTERIAL VAGINOSIS DNA NEGATIVE (NEGATIVE); CANDIDA GLABRATA DNA NEGATIVE (NEGATIVE); CANDIDA GROUP DNA NEGATIVE (NEGATIVE); CANDIDA KRUSEI DNA NEGATIVE (NEGATIVE); TRICHOMONAS VAGINALIS DNA NEGATIVE (NEGATIVE)
[2021-07-09 22:18] LABS: CHLAMYDIA TRACHOMATIS DNA NEGATIVE (NEGATIVE); NEISSERIA GONORRHOEAE DNA NEGATIVE (NEGATIVE); TRICHOMONAS VAGINALIS DNA NEGATIVE (NEGATIVE)
== END 2021-07-09 23:59 | disposition home or self-care (01) ==
LOC: LAB.N 14:25
PROVIDERS: ATTEND Family Medicine
DX: R10.2 Pelvic and perineal pain (principal)
CPT/HCPCS: 87491; 87591; 87661; 87801

== ENCOUNTER 2021-07-21 12:30 | Emergency (ER) | payer MEDICARE, MEDICAID ==
[2021-07-21 12:51] LABS: BILIRUBIN,URINE NEGATIVE (NEGATIVE); GLUCOSE, URINE (UA) NEGATIVE (NEGATIVE); KETONES,URINE (UA) NEGATIVE (NEGATIVE); LEUKOCYTE ESTERASE, URINE NEGATIVE (NEGATIVE); NITRITE,URINE NEGATIVE (NEGATIVE); OCCULT BLOOD,URINE NEGATIVE (NEGATIVE); PH,URINE 6.5 PH (5.0-7.5); PROTEIN,URINE NEGATIVE (NEGATIVE); UROBILINOGEN,URINE 0.2 (NORMAL) E.U./dL (NORMAL)
[2021-07-21 12:53] LABS: CLARITY,URINE CLEAR (CLEAR)
--- NOTE | 2021-07-21 13:34 | ED Physician Documentation ---
PD HPI ABD PAIN - Stated complaint Stated Complaint: ABD PX - Chief complaint Chief Complaint: Abd Pain - History obtained from History obtained from: Patient - History of Present Illness Timing - onset: How many weeks ago (1) Timing - duration: Weeks (1) Timing - details: Gradual onset, Still present Quality: Aching, Sharp, Pain Location: Periumbilical (above the umbilical area. Noted it most with eating, but still intermittent otherwise.) Radiation: No: Chest, Lower back, Upper back Worsened by: Eating Associated symptoms: Nausea, Loss of appetite. No: Fever, Vomiting, Diarrhea, Melena, Hematochezia, Chest pain Similar symptoms before: No diagnosis (has had some stomach pains and irregular stools in the past, ranging from loose to constipated. currently with loose stools, but not watery.) Review of Systems Constitutional: denies: Fever, Chills Nose: denies: Rhinorrhea / runny nose, Congestion Throat: denies: Sore throat Cardiac: denies: Chest pain / pressure Respiratory: denies: Cough GI: reports: Abdominal Pain, Nausea. denies: Vomiting, Constipation, Diarrhea, Bloody / black stool : denies: Dysuria, Frequency Skin: denies: Rash, Lesions Neurologic: reports: Generalized weakness. 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 HEENT: Tonsil/Adenoidectomy - Present Medications Home Medications: Ambulatory Orders Medication Instructions Recorded Confirmed Estrogens, Conjugated Cream 30 gm VG QPM PRN 30 Days #1 tube 07/01/20 07/22/20 [Premarin Cream] Ibuprofen [Motrin] 800 mg PO Q8H PRN #30 tablet 07/22/20 Cyclobenzaprine [Flexeril] 10 mg PO TID PRN #20 tablet 01/22/21 HYDROcod/ACETAM 5/325 [[place] 5/325] 1 - 2 tablet PO Q6H PRN #14 tablet 01/22/21 LORazepam [Ativan] 1 mg PO TID PRN #12 tablet 02/13/21 Cyclobenzaprine [Flexeril] 10 mg PO TID PRN #20 tablet 04/10/21 HYDROcod/ACETAM 5/325 [[place] 5/325] 1 - 2 ea PO Q6H PRN #9 tablet 06/27/21 Meloxicam [Mobic] 15 mg PO DAILY PRN #20 tablet 06/27/21 Acetaminophen [Tylenol] 650 mg PO Q6H PRN #60 tablet 07/21/21 HYDROcod/ACETAM 5/325 [[place] 5/325] 1 ea PO Q6H PRN #18 tablet 07/21/21 Ondansetron Odt [Zofran] 4 mg TL Q6H PRN #10 tablet 07/21/21 Pantoprazole Sodium 20 mg PO DAILY 30 Days #30 tab 07/21/21 Sucralfate [Carafate] 1 gm PO ACHS 10 Days #40 tablet 07/21/21 - Allergies Allergies/Adverse Reactions: Allergies Allergy/AdvReac Type Severity Reaction Status Date / Time paroxetine HCl * [From Paxil] AdvReac Intermediate "like im Verified 07/21/21 12:32 crawling out of my skin" escitalopram oxalate * AdvReac Unknown Verified 07/21/21 12:32 [From Lexapro] - Social History Does the pt smoke?: No Smoking Status: Never smoker Does the pt drink ETOH?: No Does the pt have substance abuse?: No - Immunizations Immunizations are current?: Yes - POLST Patient has POLST: No PD ED PE NORMAL - Vitals Vital signs reviewed: Yes - General General: Alert and oriented X 3, Well developed/nourished, Other (a bit r estless. Seems uncomfortable in abdomen. Wanting to stand and pace initially. ) - HEENT HEENT: Pharynx benign - Neck Neck: Supple, no meningeal sign, No adenopathy - Cardiac Cardiac: RRR, No murmur - Respiratory Respiratory: Clear bilaterally, Other (no chestwall tenderness) - Abdomen Abdomen: Normal bowel sounds, Soft, Non distended, No organomegaly, Other (tender supraumbilical area without masses, hernia, skin redness nor sores. Tender to deeper palpation without guarding nor percussion tenderness. ) - Female Female : Deferred - Rectal Rectal: Deferred - Back Back: No CVA TTP - Derm Derm: Normal color, Warm and dry - Neuro Neuro: Alert and oriented X 3, No motor deficit, Normal speech Results - Vitals Vitals: Vital Signs - 24 hr 07/21/21 07/21/21 07/21/21 12:32 14:48 16:00 Temperature 36.5 C Heart Rate 76 66 72 Respiratory 18 16 16 Rate Blood Pressure 130/65 128/69 125/55 L O2 Saturation 98 92 96 07/21/21 16:54 Temperature 36.8 C Heart Rate 70 Respiratory 20 Rate Blood Pressure 125/61 O2 Saturation 97 Oxygen O2 Source Room air - Labs Labs: Laboratory Tests 07/21/21 07/21/21 07/21/21 12:40 13:34 13:34 WBC 7.8 RBC 4.65 Hgb 14.0 Hct 42.4 MCV 91.2 MCH 30.1 MCHC 33.0 RDW 14.6 Plt Count 236 MPV 10.1 Neut # (Auto) 4.2 Lymph # (Auto) 2.8 [place] # (Auto) 0.5 Eos # (Auto) 0.2 Baso # (Auto) 0.0 Absolute Nucleated RBC 0.00 Nucleated RBC % 0.0 Sodium 140 Potassium 4.1 Chloride 102 Carbon Dioxide 28 Anion Gap 10.0 BUN 12 Creatinine 0.7 Estimated GFR (MDRD) 83 L Glucose 103 H Calcium 8.9 Total Bilirubin 0.7 AST 24 ALT 24 Alkaline Phosphatase 69 Total Protein 7.7 Albumin 4.0 Globulin 3.7 Albumin/Globulin Ratio 1.1 Lipase 32 Urine Color YELLOW Urine Clarity CLEAR Urine pH 6.5 Ur Specific [place] 1.020 Urine Protein NEGATIVE Urine Glucose (UA) NEGATIVE Urine Ketones NEGATIVE Urine Occult Blood NEGATIVE Urine Nitrite NEGATIVE Urine Bilirubin NEGATIVE Urine Urobilinogen 0.2 (NORMAL) Ur Leukocyte Esterase NEGATIVE Ur Microscopic Review NOT INDICATED Urine Culture Comments NOT INDICATED - Rads (name of study) abd/pelvic CT Radiology: Prelim report reviewed (inflammation in gastric wall at antrum c/w ulcer. Diverticula without signs of diverticulitis. UPJ obstruction without stone chronic, as seen previous studies. ), See rad report PD MEDICAL DECISION MAKING - ED course Complexity details: reviewed results (abd pain is supraumbilical but is worse with eating, so CT finding of gastritis could fit clinically. ), considered differential, d/w patient Departure - Departure Disposition: 01 Home, Self Care Clinical Impression: Abdominal pain Qualifiers: Abdominal location: periumbilical Qualified Code(s): R10.33 - Periumbilical pain Gastritis, acute Qualifiers: Gastritis type: unspecified gastritis Gastritis bleeding: without bleeding Qualified Code(s): K29.00 - Acute gastritis without bleeding Condition: Stable Record reviewed to determine appropriate education?: Yes Instructions: ED PUD Vs Gastritis Prescriptions: Sucralfate [Carafate] 1 gm PO ACHS 10 Days #40 tablet HYDROcod/ACETAM 5/325 [[place] 5/325] 1 ea PO Q6H PRN #18 tablet PRN Reason: Pain Pantoprazole Sodium 20 mg PO DAILY 30 Days #30 tab Acetaminophen [Tylenol] 650 mg PO Q6H PRN #60 tablet PRN Reason: PRN PAIN &/OR FEVER Ondansetron Odt [Zofran] 4 mg TL Q6H PRN #10 tablet PRN Reason: Nausea / Vomiting Comments: Your CT scan shows signs of gastritis/ulcer with inflammation in the stomach lining. Your symptoms would correlate with this. Be sure to reduce irritants to the stomach such as anti-inflammatories (ibuprofen, naproxen, meloxicam), significant amounts of coffee, alcohol, spicy foods. Use Tylenol every 4-6 hours if needed for pain as directed. Alternatively hydrocodone with acetaminophen instead if needed for worse pain. Pantoprazole acid reducing medicine daily for the next month. Use sacral fate to coat the stomach lining 4 times a day as directed for the next week to week and a half. Use ondansetron if needed for nausea. Follow-up with your primary care if not improved over the next several days to a week. Return if worse. I transmitted your prescriptions to [facility] market pharmacy. I am prescribing a short course of narcotic pain medication for you. These are potentially dangerous and addictive medications that should be used carefully. These medications may constipate you. Take an [id number] stool softener such as docusate twice daily with plenty of water while taking these medications. If you go 24 hours without a bowel movement, take [id number] MiraLAX, per package instructions. Do not drink or drive while taking these medications. If you received narcotic or sedating medications while in the emergency department do not drive for 24 hours. Store this medication in a safe, secure place and out of reach of children. It is a violation of federal law to give or sell this medication to another person or to use in a manner other than prescribed. The ED will not refill narcotic prescriptions, including prescriptions lost or stolen. You can dispose of unwanted medications at the [facility]'s office or at several pharmacies such as [facility]. Discharge Date/Time: 07/21/21 16:55
[2021-07-21 13:38] LABS: BASOPHILS % (AUTO) 0.5 %; EOSINOPHILS # (AUTO) 0.2 10^3/uL (0.0-0.7); HCT - HEMATOCRIT 42.4 % (37.0-47.0); LYMPHOCYTES # (AUTO) 2.8 10^3/uL (1.5-3.5); LYMPHOCYTES % (AUTO) 35.7 %; MEAN CORPUSCULAR HEMOGLOBIN 30.1 pg (27.0-31.0); MEAN CORPUSCULAR VOLUME 91.2 fL (81.0-99.0); MEAN PLATELET VOLUME 10.1 fL (7.9-10.8); MONOCYTES # (AUTO) 0.5 10^3/uL (0.0-1.0); MONOCYTES % (AUTO) 6.7 %; NEUTROPHILS # (AUTO) 4.2 10^3/uL (1.5-6.6); NEUTROPHILS % (AUTO) 53.8 %; PLT - PLATELET COUNT 236 10^3/uL (130-450); RED BLOOD COUNT 4.65 10^6/uL (4.20-5.40); RED CELL DISTRIBUTION WIDTH 14.6 % (12.0-15.0); WHITE BLOOD COUNT 7.8 x10^3/uL (4.8-10.8)
[2021-07-21 13:52] LABS: ALBUMIN/GLOBULIN RATIO 1.1 (1.0-2.2); BILIRUBIN,TOTAL 0.7 mg/dL (0.2-1.0); CALCIUM 8.9 mg/dL (8.5-10.3); CREATININE 0.7 mg/dL (0.4-1.0); POTASSIUM 4.1 mmol/L (3.5-5.0); TOTAL PROTEIN 7.7 g/dL (6.7-8.2)
[2021-07-21] MEDS ORDERED: SODIUM CHLORIDE 0.9% 1,000 ML IV STA (13:55)
[2021-07-21] MEDS ORDERED: ONDANSETRON 4 MG/2 ML VIAL IVP STA (13:55)
[2021-07-21] MEDS ORDERED: HYDROmorphone 1 MG/ML CARPUJECT IVP STA (13:55)
[2021-07-21] MEDS ORDERED: KETOROLAC 30 MG/ML VIAL IVP STA (13:55)
[2021-07-21] MEDS ORDERED: IOPAMIDOL-300 100 ML VIAL ONE (14:17)
--- NOTE | 2021-07-21 15:38 | CT Report ---
PROCEDURE: Abdomen/Pelvis W INDICATIONS: mid abd pain for a week CONTRAST: IV CONTRAST: Isovue 300 ml: 100 PO CONTRAST: *NO PO CONTRAST TECHNIQUE: After the administration of intravenous contrast, 5 mm thick sections acquired from the diaphragms to the symphysis. 5 mm thick coronal and sagittal reformats were acquired. For radiation dose reducti on, the following was used: automated exposure control, adjustment of mA and/or kV according to marilee ent size. COMPARISON: CT abdomen pelvis 09/05/2019, 04/20/2019. FINDINGS: Image quality: Excellent. ABDOMEN: Lung bases: There is minimal dependent atelectasis. Heart size is mildly enlarged. Solid organs: There is diffuse hypoattenuation of the liver consistent with fatty infiltration. Gallb ladder appears within normal limits without calcified gallstones. Biliary system is non dilated. The spleen is normal in size. Pancreas enhances normally without peripancreatic fat stranding or fluid c ollections. No adrenal nodules. There is moderate left pelvocaliectasis redemonstrated with a transi tion at the ureteropelvic junction. The left ureter is nondistended. Findings are similar to the prio r studies and are compatible with a chronic UPJ obstruction. There is no right hydronephrosis. Focal renal cortical thinning is also redemonstrated in the superior pole the left kidney consistent with s equelae of prior infarct, trauma, or infection. There are 2-3 calcifications within the superior pole of the left kidney measuring up to 0.5 cm consistent with nonobstructing renal stones or dystrophic calcifications. Peritoneum and bowel: There is prominent gastric wall thickening in the antrum. Bowel loops demonstr ate normal wall thickness and caliber. The appendix is normal in appearance. There is colonic divert iculosis without acute diverticulitis. No free fluid or air. Nodes and vessels: No retroperitoneal or mesenteric adenopathy by size criteria. Aorta and inferior vena cava are normal in size. Miscellaneous: No ventral hernias. PELVIS: Genitourinary: Bladder wall thickness is normal. Miscellaneous: No inguinal hernias or adenopathy. Bones: No suspicious bony lesions. No vertebral body compression fractures. IMPRESSION: 1. Gastric wall thickening in the antrum consistent with a nonspecific gastritis as from peptic ulcer disease. No evidence of perforation. 2. Findings consistent with a chronic left UPJ obstruction redemonstrated, with moderate pelvocaliect asis. 3. Colonic diverticulosis without acute diverticulitis. 4. Hepatic steatosis. Reviewed by: Heath Arellano MD on 07/21/2021 3:37 PM PST Approved by: Heath Arellano MD on 07/21/2021 3:37 PM PST Station ID: [id number]
[2021-07-21] MEDS ORDERED: FAMOTIDINE 20 MG/2 ML VIAL IVP STA (16:10)
[2021-07-21] MEDS ORDERED: SUCRALFATE 1 GM/10 ML UDC PO STA (16:10)
[2021-07-21 16:55] VITALS: BP 125/61
[2021-07-21] MEDS ORDERED: IOPAMIDOL-300 100 ML VIAL IVP ONE (19:01)
== END 2021-07-21 16:55 | disposition home or self-care (01) ==
LOC: ED 12:30
DX: K29.00 Acute gastritis without bleeding (principal)
CPT/HCPCS: 36415; 74177; 80053; 81003; 83690; 85025; 96374; 96375; 99284; 99285; A9270; J1170; Q9967; 81001; 87086

== ENCOUNTER 2021-08-21 08:00 | Outpatient (CLI) | payer MEDICARE, MEDICAID ==
[2021-08-21 12:02] LABS: BASOPHILS % (AUTO) 0.5 %; EOSINOPHILS # (AUTO) 0.3 10^3/uL (0.0-0.7); EOSINOPHILS % (AUTO) 4.5 %; HCT - HEMATOCRIT 42.9 % (37.0-47.0); HGB - HEMOGLOBIN 13.8 g/dL (12.0-16.0); LYMPHOCYTES # (AUTO) 2.4 10^3/uL (1.5-3.5); LYMPHOCYTES % (AUTO) 38.8 %; MEAN CORPUSCULAR HEMOGLOBIN 29.3 pg (27.0-31.0); MEAN CORPUSCULAR HGB CONC 32.2 g/dL (32.0-36.0); MEAN CORPUSCULAR VOLUME 91.1 fL (81.0-99.0); MEAN PLATELET VOLUME 10.7 fL (7.9-10.8); MONOCYTES # (AUTO) 0.5 10^3/uL (0.0-1.0); MONOCYTES % (AUTO) 7.4 %; NEUTROPHILS % (AUTO) 48.6 %; PLT - PLATELET COUNT 267 10^3/uL (130-450); RED BLOOD COUNT 4.71 10^6/uL (4.20-5.40); WHITE BLOOD COUNT 6.2 x10^3/uL (4.8-10.8)
[2021-08-21 12:16] LABS: ALBUMIN 3.9 g/dL (3.2-5.5); BILIRUBIN,TOTAL 0.7 mg/dL (0.2-1.0); CALCIUM 9.1 mg/dL (8.5-10.3); CREATININE 0.7 mg/dL (0.4-1.0); POTASSIUM 3.9 mmol/L (3.5-5.0); TOTAL PROTEIN 7.8 g/dL (6.7-8.2)
== END 2021-08-21 23:59 ==
LOC: LAB.N 08:00
PROVIDERS: ATTEND Nurse Practitioner
DX: R10.13 Epigastric pain (principal)
CPT/HCPCS: 36415; 80053; 82150; 83690; 85025

== ENCOUNTER 2021-08-25 08:00 | Outpatient (CLI) | payer MEDICARE, MEDICAID ==
[2021-08-26 11:09] LABS: BILIRUBIN,URINE NEGATIVE (NEGATIVE); CLARITY,URINE CLOUDY (CLEAR); GLUCOSE, URINE (UA) NEGATIVE (NEGATIVE); KETONES,URINE (UA) NEGATIVE (NEGATIVE); LEUKOCYTE ESTERASE, URINE NEGATIVE (NEGATIVE); NITRITE,URINE POSITIVE (NEGATIVE); OCCULT BLOOD,URINE LARGE (NEGATIVE); PROTEIN,URINE TRACE mg/dL (NEGATIVE); UROBILINOGEN,URINE 1 (NORMAL) E.U./dL (NORMAL)
[2021-08-26 11:14] LABS: AMORPHOUS SEDIMENT,UR Marked /LPF; BACTERIA,URINE Moderate /HPF (None Seen); RBC,URINE 0-5 /HPF (0-5); SQUAMOUS EPITHELIAL CELL,UR FEW Squamous (<= Few); WBC,URINE 0-3 /HPF (0-5)
[2021-08-26 21:24] LABS: BACTERIAL VAGINOSIS DNA NEGATIVE (NEGATIVE); CANDIDA GLABRATA DNA NEGATIVE (NEGATIVE); CANDIDA GROUP DNA NEGATIVE (NEGATIVE); CANDIDA KRUSEI DNA NEGATIVE (NEGATIVE); TRICHOMONAS VAGINALIS DNA NEGATIVE (NEGATIVE)
== END 2021-08-25 23:59 ==
LOC: LAB.R 08:00
PROVIDERS: ATTEND Obstetrics & Gynecology
DX: N39.0 Urinary tract infection, site not specified (principal); R10.2 Pelvic and perineal pain
CPT/HCPCS: 81001; 87086; 87181; 87661; 87801

== ENCOUNTER 2021-10-03 11:46 | Day surgery (SDC) | payer MEDICARE, MEDICAID ==
[2021-10-03 12:04] VITALS: BP 140/63
--- NOTE | 2021-10-03 12:27 | CONSULTATION NOTE ---
Consultation Report: Patient presented to preop. Cardiac rhythm was bigemeny and trigemeny. Pt denies having workup from motion picture set worker. EKG from 06/2021 shows similar rhythm. Case cancelled and patient instructed to follow up with motion picture set worker before rescheduling scope.
== END 2021-10-03 11:47 | disposition home or self-care (01) ==
LOC: SDS 11:46
PROVIDERS: ATTEND Surgery
DX: R10.13 Epigastric pain (principal); R00.8 Other abnormalities of heart beat; Z53.9 Procedure and treatment not carried out, unspecified reason

== ENCOUNTER 2021-10-16 11:29 | Emergency (ER) | payer MEDICARE, MEDICAID ==
[2021-10-16 12:07] LABS: BASOPHILS # (AUTO) 0.1 10^3/uL (0.0-0.1); BASOPHILS % (AUTO) 0.8 %; EOSINOPHILS # (AUTO) 0.2 10^3/uL (0.0-0.7); HCT - HEMATOCRIT 40.3 % (37.0-47.0); HGB - HEMOGLOBIN 13.5 g/dL (12.0-16.0); LYMPHOCYTES # (AUTO) 2.7 10^3/uL (1.5-3.5); LYMPHOCYTES % (AUTO) 44.6 %; MEAN CORPUSCULAR HEMOGLOBIN 29.6 pg (27.0-31.0); MEAN CORPUSCULAR HGB CONC 33.5 g/dL (32.0-36.0); MEAN CORPUSCULAR VOLUME 88.4 fL (81.0-99.0); MEAN PLATELET VOLUME 9.8 fL (7.9-10.8); MONOCYTES # (AUTO) 0.5 10^3/uL (0.0-1.0); MONOCYTES % (AUTO) 7.7 %; NEUTROPHILS # (AUTO) 2.6 10^3/uL (1.5-6.6); NEUTROPHILS % (AUTO) 43.7 %; PLT - PLATELET COUNT 253 10^3/uL (130-450); RED BLOOD COUNT 4.56 10^6/uL (4.20-5.40); RED CELL DISTRIBUTION WIDTH 13.8 % (12.0-15.0)
[2021-10-16 12:21] LABS: ALBUMIN/GLOBULIN RATIO 1.1 (1.0-2.2); BILIRUBIN,TOTAL 0.5 mg/dL (0.2-1.0); CALCIUM 8.9 mg/dL (8.5-10.3); CREATININE 0.8 mg/dL (0.4-1.0); POTASSIUM 4.2 mmol/L (3.5-5.0); TOTAL PROTEIN 7.5 g/dL (6.7-8.2)
--- NOTE | 2021-10-16 12:22 | XRAY Report ---
PROCEDURE: Chest 1 View X-Ray INDICATIONS: Chest pain TECHNIQUE: One view of the chest was acquired. COMPARISON: Chest x-ray 07/22/2020. FINDINGS: Surgical changes and devices: None. Lungs and pleura: No pleural effusions or pneumothorax. There is a linear opacity laterally in the left lung consistent with atelectasis or scarring. Lungs are otherwise clear. Mediastinum: Mediastinal contours appear unchanged. Heart size is enlarged. Bones and chest wall: No suspicious bony lesions. Overlying soft tissues appear unremarkable. IMPRESSION: 1. No acute cardiopulmonary disease. Reviewed by: Heath Arellano MD on 10/16/2021 12:20 PM [facility] Approved by: Heath Arellano MD on 10/16/2021 12:20 PM PST Station ID: [id number]
[2021-10-16] MEDS ORDERED: MAG HYDROX/AL HYDROX/SIMETH 30 ML UDC PO STA (12:28)
[2021-10-16] MEDS ORDERED: PANTOPRAZOLE 40 MG TABLET PO STA (12:28)
[2021-10-16] MEDS ORDERED: LIDOCAINE VISCOUS 2% 15 ML UDC MM STA (12:28)
--- NOTE | 2021-10-16 12:34 | ED Physician Documentation ---
PD HPI ABD PAIN - Stated complaint Stated Complaint: CHEST PX - Chief complaint Chief Complaint: Cardiac - History obtained from History obtained from: Patient - Additional information Additional information: The patient comes to the emergency department chief complaint of left upper quadrant abdominal pain. The patient has a history of peptic ulcer disease and was scheduled for a an EGD, but in her preoperative work-up, she was found to have frequent PVCs and was told that they would not do the scope until she saw cardiology. The patient states she is actually scheduled to see cardiology for preoperative clearance but that she just cannot stand the discomfort. She states she has a burning sensation in her left upper quadrant that comes and goes seemingly randomly. The patient does note that she has been taking ibuprofen frequently for her abdominal pain. She denies nausea or vomiting. No chest discomfort substernally. The patient denies any fevers or chills. No respiratory symptoms. She is mainly here for symptomatic control. She denies any vertigo, but states she feels a little lightheaded sometimes. No palpitations. Review of Systems Ten Systems: 10 systems reviewed and negative Constitutional: reports: Reviewed and negative Eyes: reports: Reviewed and negative Ears: reports: Reviewed and negative Nose: reports: Reviewed and negative Throat: reports: Reviewed and negative Cardiac: reports: Reviewed and negative Respiratory: reports: Reviewed and negative GI: reports: Abdominal Pain : reports: Reviewed and negative Skin: reports: Reviewed and negative Musculoskeletal: reports: Reviewed and negative Neurologic: reports: Reviewed and negative Psychiatric: reports: Reviewed and negative Endocrine: reports: Reviewed and negative Immunocompromised: reports: Reviewed and negative PD PAST MEDICAL HISTORY - Past Medical History Cardiovascular: None Respiratory: Pneumonia Neuro: Headaches Endocrine/Autoimmune: None GI: Ulcers 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 : None HEENT: None Psych: Depression, Anxiety Musculoskeletal: Osteoarthritis Derm: None - Past Surgical History Past Surgical History: Yes General: Other Ortho: Other /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 HEENT: Tonsil/Adenoidectomy - Present Medications Home Medications: Ambulatory Orders Medication Instructions Recorded Confirmed HYDROcod/ACETAM 5/325 [[place] 5/325] 1 - 2 tablet PO BID PRN #14 tablet 10/16/21 Omeprazole 40 mg PO DAILY #30 cap 10/16/21 - Allergies Allergies/Adverse Reactions: Allergies Allergy/AdvReac Type Severity Reaction Status Date / Time paroxetine HCl * [From Paxil] AdvReac Intermediate "like im Verified 10/16/21 11:50 crawling out of my skin" escitalopram oxalate * AdvReac Unknown Verified 10/16/21 11:50 [From Lexapro] - Social History Does the pt smoke?: No Smoking Status: Never smoker Does the pt drink ETOH?: No Does the pt have substance abuse?: No - Immunizations Immunizations are current?: Yes - POLST Patient has POLST: No PD ED PE NORMAL - Vitals Vital signs reviewed: Yes - General General: Alert and oriented X 3, No acute distress, Well developed/nourished - HEENT HEENT: Atraumatic, PERRL, EOMI, Moist mucous membranes - Neck Neck: Supple, no meningeal sign - Cardiac Cardiac: RRR, No murmur, Strong equal pulses - Respiratory Respiratory: No respiratory distress, Clear bilaterally - Abdomen Abdomen: Soft, Non distended, Other (Mild left upper quadrant tenderness, no rebound or guarding) - Derm Derm: Normal color, Warm and dry, No rash - Extremities Extremities: No deformity, No edema, No calf tenderness / cord - Neuro Neuro: Alert and oriented X 3, accounts payable professional 2-12 intact, Normal speech, Other (Grossly intact) - Psych Psych: Normal mood, Normal affect Results - Vitals Vitals: Vital Signs - 24 hr 10/16/21 10/16/21 10/16/21 11:47 11:53 12:57 Temperature 36.8 C Heart Rate 71 74 80 Respiratory 18 17 19 Rate Blood Pressure 120/74 120/70 122/78 O2 Saturation 100 100 99 Oxygen O2 Source Room air - EKG (time done) 1138 Rate: Rate (enter#) (61) Rhythm: NSR [place]: LAD (Borderline) Intervals: Normal AR, Other (Ventricular trigeminy) QRS: Normal Ischemia: Normal ST segments Compare to prior EKG: Old EKG unavailable Computer interpretation: Agree with computer - Labs Labs: Laboratory Tests 10/16/21 10/16/21 10/16/21 12:01 12:01 12:01 WBC 6.0 RBC 4.56 Hgb 13.5 Hct 40.3 MCV 88.4 MCH 29.6 MCHC 33.5 RDW 13.8 Plt Count 253 MPV 9.8 Neut # (Auto) 2.6 Lymph # (Auto) 2.7 [place] # (Auto) 0.5 Eos # (Auto) 0.2 Baso # (Auto) 0.1 Absolute Nucleated RBC 0.00 Nucleated RBC % 0.0 Sodium 136 Potassium 4.2 Chloride 101 Carbon Dioxide 25 Anion Gap 10.0 BUN 14 Creatinine 0.8 Estimated GFR (MDRD) 72 L Glucose 97 Calcium 8.9 Total Bilirubin 0.5 AST 32 ALT 33 Alkaline Phosphatase 77 Troponin I High Sens 3.7 Total Protein 7.5 Albumin 4.0 Globulin 3.5 Albumin/Globulin Ratio 1.1 Lipase 47 PD MEDICAL DECISION MAKING - ED course Complexity details: reviewed results, re-evaluated patient, considered differential, d/w patient ED course: The patient's exam was fairly benign, and work-up, including EKG and labs, was unremarkable, other than ventricular trigeminy which seem to come and go on the security monitor and was present on EKG. The patient is hemodynamically stable and asymptomatic from a cardiac perspective. I gave her dose of Protonix and also a GI cocktail in the emergency department. I have advised her to keep her cardiology appointment and to follow-up with her GI specialist to reschedule the scope. I will prescribe her Protonix for her at home and of advised [id number] Maalox, as well. We have discussed the usual indications for return. Departure - Departure Disposition: 01 Home, Self Care Clinical Impression: Abdominal pain Qualifiers: Abdominal location: left upper quadrant Qualified Code(s): R10.12 - Left upper quadrant pain Gastritis Qualifiers: Gastritis type: unspecified gastritis Chronicity: chronic Gastritis bleeding: without bleeding Qualified Code(s): K29.50 - Unspecified chronic gastritis without bleeding Condition: Stable Instructions: ED PUD Vs Gastritis Prescriptions: HYDROcod/ACETAM 5/325 [[place] 5/325] 1 - 2 tablet PO BID PRN #14 tablet PRN Reason: Pain Omeprazole 40 mg PO DAILY #30 cap Comments: Your prescriptions have been electronically transmitted to [facility] pharmacy. Please discontinue the use of ibuprofen, as this can further irritate your stomach lining. Please continue your plans to follow-up with cardiology and then reconnect with your program and research coordinator or surgeon who is going to do your endoscopy. If you begin having episodes of vomiting blood, you should be reevaluated immediately. Discharge Date/Time: 10/16/21 13:00
[2021-10-16 13:03] VITALS: BP 122/78
== END 2021-10-16 13:00 | disposition home or self-care (01) ==
LOC: ED 11:29
DX: K29.50 Unspecified chronic gastritis without bleeding (principal)
CPT/HCPCS: 36415; 71045; 80053; 83690; 84484; 85025; 93005; 99283; 99284; A9270

== ENCOUNTER 2022-01-20 08:35 | Outpatient (CLI) | payer MEDICARE, MEDICAID ==
--- NOTE | 2022-01-20 10:53 | CARDIAC PROCEDURE NOTE ---
Stress Test Report Service Date: 01/20/22 Service Time: 09:00 Ordering Provider: Micah Beltrán MD Indication for Test: Assess for CAD in patient with risk factors and EKG deemed abnormal, prior to planned GI endoscopy. Significant Medical History: Cassandra reports having recently been diagnosed with "ulcer disease", for which upper endoscopy has been recommended by Dr Gallego. Apparently a pre-procedure EKG was interpreted as abnormal and Cassandra may have reported intermittent occurrence of lower chest discomfort, as she does today. She says that this discomfort has been attributed to either chest wall origin or stress, and that it occurs when the latter is significant. She does not believe that the intensity of the discomfort varies with exercise. She walks moderately, though not regularly. Overall she feels that her exertional tolerance is gradually decreasing, with exertional fatigue, but with no specific symptoms such as marked dyspnea, lightheadedness or palpitations. She also describes periodic epigastric discomfort that she attributes to her GERD/ulcer disease, that is clearly different in nature than the aforementioned lower chest discomfort. She reports that when contacted by our team yesterday to discuss the test today her discomfort increased to a level in the range of 34 on a scale of 1-10 and it has persisted at that level over the last 24 hours. Cardiac Risk Factors: Positive for history of CAD in both parents (she believes both had SC in their 70's); negative for hypertension, diabetes, hyperlipidemia and tobacco smoking ever. Type of Stress Test: ETT with Myocardial Perfusion Imaging Procedure: -Exercise Treadmill Test- After signing informed consent, the patient underwent resting SPECT imaging and then performed treadmill exercise using a Ehsan protocol. The patient exercised for 7 minutes 20 seconds and achieved a peak heart rate of 140 (91 percent predicted maximum heart rate for age), and an estimated workload of 9.1 METS. The test was terminated due to fatigue, with a lesser component of shortness of breath. Resting heart rate: 88 Peak heart rate: 140 Normal response to exercise. Resting (standing) BP: 131/84 Peak BP: 149/96 Note that BPs declined below standing/resting value and remained in the range of 116-128/~85 during exercise, increasing to the peak BP recorded, at 2:00 of Recovery. Abnormal BP response to exercise. Rhythm during exercise: Sinus rhythm throughout, with rare intermittent PVCs. Symptoms: She reported that her chest discomfort remained at the same level ("34/10") throughout the exercise and recovery periods. EKG at rest showed normal sinus rhythm, with probable left atrial abnormality, borderline nonspecific intraventricular conduction delay (QRSd 116 msec), diffuse minor nonspecific T wave flattening and low precordial QRS voltages. EKG at peak stress showed no ischemia by EKG criteria. In Recovery HR normally/rapdily returned to near baseline level; BP varied as described above. Nuclear imaging was performed at rest and with stress and Radiologist's interpretation is reported separately. Nicanor Garnica MD, was present throughout this treadmill stress study and supervised it in its entirety. Summary: 1) Exercise tolerance above average for age and sex as evidenced by TI of -20%. 2) Abnormal resting EKG. 3) Adequate level of exercise was achieved on this treadmill stress test. 4) Abnormal hypotensive BP response to exercise. 5) No ischemic changes by EKG criteria were seen at peak stress. 6) Analysis of gated nuclear images reveals normal left ventricular size and systolic function, with left ventricular ejection fraction of 72%. SPECT analysis reveals a large perfusion defect on supine rest images, that nearly fully normalizes with stress imaging in the prone position, most likely due to breast attenuation artifact; in addition there is a small, fixed apical defect, most likely representing a small prior infarct. There is no convincing evidence of inducible ischemia. See separate report for more detail. CONCLUSIONS: 1) No clear symptom, EKG nor SPECT evidence of inducible ischemia, though with a small apical defect that is most likely due to prior infarct. 2) Abnormal hypotensive BP response to exercise.
--- NOTE | 2022-01-20 14:36 | Nuclear Medicine Report ---
PROCEDURE: Rest and exercise myocardial perfusion SPECT with gated imaging and ejection fraction INDICATIONS: ABN EKG/ TREADMILL RADIOPHARMACEUTICAL: 15.0 mCi Tc-99m Myoview IV at rest and 47.3 mCi Tc-99m Myoview IV at peak exerc ise. [id number] was performed. TECHNIQUE: Radiopharmaceutical was injected at peak stress test, and also at rest. SPECT images wer e obtained. SPECT myocardial perfusion images were displayed in short axis, horizontal long axis, an d vertical long axis views. Gated images were reviewed using Auto[employer] software. COMPARISON: None available. FINDINGS: Raw data: There is good myocardial labeling by radiotracer. No significant motion artifacts. Lung- to-heart ratio is 0.35 (normal is less than 0.46 for tetrafosmin tracer). Left ventricle function: Gated images demonstrate normal left ventricle wall thickening. No segment al wall motion abnormality. No transient ischemic dilation; TID is 0.68 (normal less than 1.30). Th e left ventricle resting end-diastolic volume is 84 mL. Left ventricle stress ejection fraction is 7 2%; normal values are above 45%. Myocardial perfusion: There is a large, rest and stress phase perfusion defect in the anterior wall which demonstrates near complete normalization the prone position and likely represents breast attenu ation artifact. There is a small, fixed perfusion defect in the cardiac apex which does not resolve i n the prone position. No reversible perfusion defects identified. IMPRESSION: 1. Abnormal study demonstrating small fixed perfusion defect in the cardiac apex compatible with area of prior infarction. 2. Apparent large fixed perfusion defect in the anterior wall measures near complete normalization in the prone position and likely represents soft tissue attenuation artifact. 3. Normal left ventricular function with no segmental wall motion abnormalities and stress LVEF of 72 %. PQRS ATTESTATIONS: Measure 322 - Is this imaging test primarily performed on a low-risk surgery patient for preoperative evaluation within 30 days preceding their low-risk non-cardiac surgery? Low-risk surgery is defined as cardiac or myocardial infarction less than 1%, including (but not limited to) endoscopic pr ocedures, superficial procedures, cataract surgery, and excisional breast surgery: Answer: No Measure 323 - Is this imaging test performed primarily for the monitoring of an asymptomatic patient who had percutaneous coronary intervention on the visit date or within 2 years of the visit date? An swer: No Measure 324 - Is this imaging test performed primarily for the initial detection and risk assessment on an asymptomatic, low coronary heart disease patient? Low CHD risk definition = clinicians should consider the maximum number of available patient factors used to estimate risk based on [place] (A TP III criteria), typically age, gender, diabetes, smoking status, and use of blood pressure medicati on, and integrate age appropriate estimates for missing elements, such as LDL or standard blood press ure. Answer: No Reviewed by: Robina Morelos MD, PhD on 01/20/2022 2:35 PM PDT Approved by: oRbina Morelos MD, PhD on 01/20/2022 2:35 PM PDT Station ID: [id number]
== END 2022-01-20 08:36 | disposition home or self-care (01) ==
LOC: DI 08:35
PROVIDERS: ATTEND Internal Medicine Cardiovascular Disease
DX: R94.31 Abnormal electrocardiogram [ECG] [EKG] (principal); R94.39 Abnormal result of other cardiovascular function study
CPT/HCPCS: 78452; 93017; A9500; 93016; 93018

== ENCOUNTER 2022-05-26 08:00 | Outpatient (CLI) | payer MEDICARE, MEDICAID ==
[2022-05-26 16:05] LABS: BILIRUBIN,URINE NEGATIVE (NEGATIVE); GLUCOSE, URINE (UA) NEGATIVE (NEGATIVE); KETONES,URINE (UA) NEGATIVE (NEGATIVE); LEUKOCYTE ESTERASE, URINE TRACE (NEGATIVE); NITRITE,URINE POSITIVE (NEGATIVE); OCCULT BLOOD,URINE NEGATIVE (NEGATIVE); PROTEIN,URINE NEGATIVE (NEGATIVE); UROBILINOGEN,URINE 0.2 (NORMAL) E.U./dL (NORMAL)
[2022-05-26 16:15] LABS: BACTERIA,URINE Many /HPF (None Seen); CLARITY,URINE HAZY (CLEAR); RBC,URINE 0-5 /HPF (0-5); SQUAMOUS EPITHELIAL CELL,UR RARE Squamous (<= Few)
== END 2022-05-26 23:59 | disposition home or self-care (01) ==
LOC: LAB.R 08:00
PROVIDERS: ATTEND Internal Medicine
DX: N39.0 Urinary tract infection, site not specified (principal); R94.31 Abnormal electrocardiogram [ECG] [EKG]
CPT/HCPCS: 81001; 87086; 87181

== ENCOUNTER 2022-06-26 11:19 | Day surgery (SDC) | payer MEDICARE, MEDICAID ==
[2022-06-26] MEDS ORDERED: LIDOCAINE-PF 2% 10 ML AMP SUBQ ONE (11:32)
[2022-06-26] MEDS ORDERED: PROPOFOL 200 MG/20 ML VIAL IVP ONE (11:33)
[2022-06-26] MEDS ORDERED: LACTATED RINGERS 1,000 ML IV ONE (11:33)
[2022-06-26] MEDS ORDERED: MIDAZOLAM 2 MG/2 ML VIAL ONE (12:08)
--- NOTE | 2022-06-26 12:16 | ANESTHESIA ---
Pre-Anesthesia VS, & Labs - Diagnosis GERD - Procedure EGD Vital Signs: Temp Pulse Resp BP Pulse Ox O2 Flow Rate 36.4 C L 71 18 112/81 H 97 06/26/22 11:33 06/26/22 11:33 06/26/22 11:33 06/26/22 11:33 06/26/22 11:33 Height: 5 ft 7 in Weight (kg): 91.9 kg Body Mass Index: 31.7 BMI Classification: Obese - NPO >8 hours - Is Patient ?: No Home Medications and Allergies Allergies/Adverse Reactions: Allergies Allergy/AdvReac Type Severity Reaction Status Date / Time paroxetine HCl * [From Paxil] AdvReac Intermediate "like im Verified 10/16/21 11:50 crawling out of my skin" escitalopram oxalate * AdvReac Headache Verified 06/18/22 10:53 [From Lexapro] Anes History & Medical History - Anesthetic History Anesthesia Complications: reports: No previous complications Family history of Anesthesia Complications: Denies Family history of Malignant Hyperthermia: Denies - Medical History Cardiovascular: reports: Arrhythmia Pulmonary: reports: Pneumonia Gastrointestinal: reports: Ulcers Urinary: reports: None Neuro: reports: Headaches Musculoskeletal: reports: Osteoarthritis Endocrine/Autoimmune: reports: None Blood Disorders: reports: None Skin: reports: None Smoking Status: Never smoker - Surgical History General: reports: Other Eyes Ears Nose Throat (EENT): reports: Tonsil/Adenoidectomy Gynecologic: reports: section Orthopedic: reports: Other Exam General: Alert, Oriented x3, Cooperative Dental: WNL Mouth Openin Fingerbreadth Neck Mobility: Normal Mallampati classification: II Thyromental Distance: 4-6 cm Respiratory: Lungs clear Cardiovascular: Regular rate Plan Anesthesia Type: Total IV Consent for Procedure(s) Verified and Reviewed: Yes Code Status: Attempt Resuscitation ASA classification: 3-Severe systemic disease Is this case an emergency?: No
--- NOTE | 2022-06-26 12:32 | HISTORY & PHYSICAL EXAMINATION ---
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 : reports: None HEENT: reports: None Psych: reports: Depression, Anxiety Musculoskeletal: reports: Osteoarthritis Derm: reports: None MRSA Hx?: No - Past Surgical History General: reports: Other Ortho: reports: Other /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 HEENT: reports: Tonsil/Adenoidectomy - POLST Patient has POLST: No Meds/Allgy - Allergies Allergies/Adverse Reactions: Allergies Allergy/AdvReac Type Severity Reaction Status Date / Time paroxetine HCl * [From Paxil] AdvReac Intermediate "like im Verified 10/16/21 11:50 crawling out of my skin" escitalopram oxalate * AdvReac Headache Verified 06/18/22 10:53 [From Lexapro] Review of Systems - Other Findings Other Findings: 10 pt ros as above otherwise unremarkable denies weight loss Exam - Vital Signs Reviewed Vital Signs: Yes Vital Signs: Vital Signs x48h Temp Pulse Resp BP Pulse Ox 06/26/22 11:33 36.4 C L 71 18 112/81 H 97 - Physical Exam General Appearance: positive: No acute distress, Alert Eyes Bilateral: positive: PERRL, EOMI, No scleral icterus ENT: positive: No signs of dehydration Neck: positive: No JVD, Trachea midline Respiratory: positive: No respiratory distress, Breath sounds nml Cardiovascular: positive: Regular rate & rhythm Abdomen: positive: Non-tender, No distention Neurologic/Psychiatric: positive: Oriented x3 Conclusion/Plan - Problem List (1) Abdominal pain Conclusion/Plan: plan egd with biopsy. parq held and consent obtained
[2022-06-26] MEDS ORDERED: LACTATED RINGERS 300 ML IV ONE (12:56)
[2022-06-26] MEDS ORDERED: ONDANSETRON 4 MG/2 ML VIAL ONE (13:09)
[2022-06-26 13:47] VITALS: BP 106/73
== END 2022-06-26 11:20 | disposition home or self-care (01) ==
LOC: SDS 11:19
PROVIDERS: ATTEND Surgery
PROC: 0DB78ZX Excision of Stomach, Pylorus, Via Natural or Artificial Opening Endoscopic, Diagnostic (ICD-10-PCS; principal; 2022-06-26 12:30)
DX: R10.13 Epigastric pain (principal); E66.9 Obesity, unspecified; F41.9 Anxiety disorder, unspecified; Z68.31 Body mass index [BMI] 31.0-31.9, adult; Z87.898 Personal history of other specified conditions
CPT/HCPCS: 43239; J7120

== ENCOUNTER 2022-07-27 09:25 | Emergency (ER) | payer MEDICARE, MEDICAID ==
[2022-07-27 10:00] LABS: BASOPHILS % (AUTO) 0.6 %; EOSINOPHILS # (AUTO) 0.3 10^3/uL (0.0-0.7); EOSINOPHILS % (AUTO) 5.1 %; HCT - HEMATOCRIT 45.1 % (37.0-47.0); HGB - HEMOGLOBIN 14.3 g/dL (12.0-16.0); LYMPHOCYTES # (AUTO) 2.5 10^3/uL (1.5-3.5); LYMPHOCYTES % (AUTO) 48.5 %; MEAN CORPUSCULAR HEMOGLOBIN 28.1 pg (27.0-31.0); MEAN CORPUSCULAR HGB CONC 31.7 g/dL (32.0-36.0); MEAN CORPUSCULAR VOLUME 88.8 fL (81.0-99.0); MEAN PLATELET VOLUME 9.3 fL (7.9-10.8); MONOCYTES # (AUTO) 0.4 10^3/uL (0.0-1.0); MONOCYTES % (AUTO) 7.1 %; NEUTROPHILS # (AUTO) 1.9 10^3/uL (1.5-6.6); NEUTROPHILS % (AUTO) 38.5 %; PLT - PLATELET COUNT 265 10^3/uL (130-450); RED BLOOD COUNT 5.08 10^6/uL (4.20-5.40); RED CELL DISTRIBUTION WIDTH 14.3 % (12.0-15.0); WHITE BLOOD COUNT 5.1 x10^3/uL (4.8-10.8)
[2022-07-27 10:13] LABS: ALBUMIN 4.1 g/dL (3.2-5.5); BILIRUBIN,TOTAL 0.9 mg/dL (0.2-1.0); CALCIUM 8.8 mg/dL (8.5-10.3); CREATININE 0.7 mg/dL (0.4-1.0); POTASSIUM 3.7 mmol/L (3.5-5.0); TOTAL PROTEIN 8.1 g/dL (6.7-8.2)
[2022-07-27 12:26] LABS: BILIRUBIN,URINE NEGATIVE (NEGATIVE); GLUCOSE, URINE (UA) NEGATIVE (NEGATIVE); KETONES,URINE (UA) NEGATIVE (NEGATIVE); LEUKOCYTE ESTERASE, URINE TRACE (NEGATIVE); NITRITE,URINE POSITIVE (NEGATIVE); OCCULT BLOOD,URINE TRACE-INTA (NEGATIVE); PROTEIN,URINE NEGATIVE (NEGATIVE); UROBILINOGEN,URINE 0.2 (NORMAL) E.U./dL (NORMAL)
[2022-07-27 12:28] LABS: CLARITY,URINE HAZY (CLEAR)
[2022-07-27 12:34] LABS: BACTERIA,URINE Moderate /HPF (None Seen); RBC,URINE 0-5 /HPF (0-5); SQUAMOUS EPITHELIAL CELL,UR FEW Squamous (<= Few)
[2022-07-27 12:39] VITALS: BP 124/88
--- NOTE | 2022-07-27 13:08 | ED Physician Documentation ---
PD HPI ABD PAIN - Stated complaint Stated Complaint: ABD PX - Chief complaint Chief Complaint: Abd Pain - History obtained from History obtained from: Patient - Additional information Additional information: The patient comes to the emergency department chief complaint of diarrhea for the last 2 days. She is very concerned because she has a longstanding history of left upper quadrant pain and finally had an endoscopy a few weeks ago, which did not show any ulcers. She states she has a pain under her left ribs, and just cannot understand why she has this pain along with watery diarrhea. She states repeatedly that she is concerned concerned about her "digestive system acting up". The patient has not been nauseated or vomiting. She denies any blood in her stools. She is followed by Dr. Gallego for her ongoing GI issues. No fevers or chills. No respiratory symptoms. No other complaints at this time. She states that when she lays on her left side, her left ribs are sore. However, she denies any trauma. No recent antibiotic courses. No recent travel. Review of Systems Ten Systems: 10 systems reviewed and negative Constitutional: reports: Reviewed and negative Eyes: reports: Reviewed and negative Ears: reports: Reviewed and negative Nose: reports: Reviewed and negative Throat: reports: Reviewed and negative Cardiac: reports: Chest pain / pressure Respiratory: reports: Reviewed and negative GI: reports: Diarrhea : reports: Reviewed and negative Skin: reports: Reviewed and negative Musculoskeletal: reports: Reviewed and negative Neurologic: reports: Reviewed and negative Psychiatric: reports: Reviewed and negative Endocrine: reports: Reviewed and negative Immunocompromised: reports: Reviewed and negative PD PAST MEDICAL HISTORY - Past Medical History Cardiovascular: Arrhythmia Respiratory: Pneumonia Neuro: Headaches Endocrine/Autoimmune: None GI: Ulcers 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 : None HEENT: None Psych: Depression, Anxiety Musculoskeletal: Osteoarthritis Derm: None - Past Surgical History Past Surgical History: Yes General: Other Ortho: Other /PROPERTY 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: 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 HEENT: Tonsil/Adenoidectomy - Allergies Allergies/Adverse Reactions: Allergies Allergy/AdvReac Type Severity Reaction Status Date / Time paroxetine HCl * [From Paxil] AdvReac Intermediate "like im Verified 07/27/22 09:42 crawling out of my skin" escitalopram oxalate * AdvReac Headache Verified 07/27/22 09:42 [From Lexapro] - Social History Does the pt smoke?: No Smoking Status: Never smoker Does the pt drink ETOH?: No Does the pt have substance abuse?: No - Immunizations Immunizations are current?: Yes - POLST Patient has POLST: No PD ED PE NORMAL - Vitals Vital signs reviewed: Yes - General General: Alert and oriented X 3, No acute distress, Well developed/nourished - HEENT HEENT: Atraumatic, PERRL, EOMI, Moist mucous membranes - Neck Neck: Supple, no meningeal sign - Cardiac Cardiac: RRR, No murmur, Strong equal pulses - Respiratory Respiratory: No respiratory distress, Clear bilaterally - Abdomen Abdomen: Soft, Non tender, Non distended - Derm Derm: Normal color, Warm and dry, No rash - Extremities Extremities: No deformity, No edema - Neuro Neuro: Alert and oriented X 3 - Psych Psych: Normal mood, Normal affect Results - Vitals Vitals: Vital Signs - 24 hr 07/27/22 07/27/22 07/27/22 09:39 09:41 12:39 Temperature 36.4 C L 36.5 C 36.5 C Heart Rate 80 80 80 Respiratory 20 20 18 Rate Blood Pressure 138/99 H 138/99 H 124/88 H O2 Saturation 98 98 98 Oxygen O2 Source Room air - Labs Labs: Laboratory Tests 07/27/22 07/27/22 07/27/22 09:55 09:55 12:00 WBC 5.1 RBC 5.08 Hgb 14.3 Hct 45.1 MCV 88.8 MCH 28.1 MCHC 31.7 L RDW 14.3 Plt Count 265 MPV 9.3 Neut # (Auto) 1.9 Lymph # (Auto) 2.5 [place] # (Auto) 0.4 Eos # (Auto) 0.3 Baso # (Auto) 0.0 Absolute Nucleated RBC 0.00 Nucleated RBC % 0.0 Sodium 139 Potassium 3.7 Chloride 105 Carbon Dioxide 23 Anion Gap 11.0 BUN 13 Creatinine 0.7 Estimated GFR (MDRD) 83 L Glucose 103 H Calcium 8.8 Total Bilirubin 0.9 AST 32 ALT 35 Alkaline Phosphatase 77 Total Protein 8.1 Albumin 4.1 Globulin 4.0 Albumin/Globulin Ratio 1.0 Lipase 45 Urine Color DARK YELLOW Urine Clarity HAZY Urine pH 6.0 Ur Specific [place] 1.025 Urine Protein NEGATIVE Urine Glucose (UA) NEGATIVE Urine Ketones NEGATIVE Urine Occult Blood TRACE-INTA Urine Nitrite POSITIVE H Urine Bilirubin NEGATIVE Urine Urobilinogen 0.2 (NORMAL) Ur Leukocyte Esterase TRACE H Urine RBC 0-5 Urine WBC 11-25 H Ur Squamous Epith Cells FEW Squamous Urine Bacteria Moderate H Ur Microscopic Review INDICATED Urine Culture Comments INDICATED PD Medical Decision Making - ED course Complexity details: reviewed old records, considered differential, d/w patient ED course: I discussed with the patient that her symptoms are consistent with a viral illness. She has chronic left upper quadrant abdominal pain and does not have any fevers or vomiting. Her abdominal pain is at baseline. At this point in time, we have discussed symptomatic management of the diarrhea and the expected self-limited nature of this illness. We have discussed the need for follow-up and the usual indications for return. Departure - Departure Disposition: 01 Home, Self Care Clinical Impression: Diarrhea Qualifiers: Diarrhea type: unspecified type Qualified Code(s): R19.7 - Diarrhea, unspecified Condition: Stable Instructions: ED Diet Vomiting Diarrhea, ED Diarrhea Viral Comments: Your symptoms are consistent with what we are seeing extensively in the community. Diarrhea is usually caused by a virus in our area and generally will go away on its own, given time. You should drink plenty of fluids, mainly water and electrolyte drinks, and to stay hydrated. You may eat simple starches like saltine and oyster crackers, Ramen noodles, and white rice. Once your stools start to solidify, which will take anywhere from several days to a week or so, you may advance your diet to more complex foods. There is no evidence of a more serious condition at this time. You had extensive work-up for your various abdominal symptoms over the months, including a recent endoscopy. You should follow-up with Dr. Gallego as needed.
== END 2022-07-27 13:21 | disposition home or self-care (01) ==
LOC: ED 09:25
DX: R19.7 Diarrhea, unspecified (principal)
CPT/HCPCS: 36415; 80053; 81001; 81003; 83690; 85025; 87086; 87181; 99282; 99283

== ENCOUNTER 2022-08-21 12:45 | Emergency (ER) | payer MEDICARE, MEDICAID ==
[2022-08-21 12:58] VITALS: BP 119/70
[2022-08-21 13:13] LABS: BASOPHILS # (AUTO) 0.1 10^3/uL (0.0-0.1); BASOPHILS % (AUTO) 0.8 %; EOSINOPHILS # (AUTO) 0.2 10^3/uL (0.0-0.7); EOSINOPHILS % (AUTO) 2.5 %; HGB - HEMOGLOBIN 14.1 g/dL (12.0-16.0); LYMPHOCYTES # (AUTO) 3.2 10^3/uL (1.5-3.5); LYMPHOCYTES % (AUTO) 51.1 %; MEAN CORPUSCULAR HEMOGLOBIN 28.8 pg (27.0-31.0); MEAN CORPUSCULAR HGB CONC 32.8 g/dL (32.0-36.0); MEAN CORPUSCULAR VOLUME 87.8 fL (81.0-99.0); MEAN PLATELET VOLUME 9.4 fL (7.9-10.8); MONOCYTES # (AUTO) 0.4 10^3/uL (0.0-1.0); NEUTROPHILS # (AUTO) 2.4 10^3/uL (1.5-6.6); NEUTROPHILS % (AUTO) 38.4 %; PLT - PLATELET COUNT 299 10^3/uL (130-450); RED CELL DISTRIBUTION WIDTH 14.1 % (12.0-15.0); WHITE BLOOD COUNT 6.3 x10^3/uL (4.8-10.8)
--- OUTSIDE RECORDS SUMMARY | 2022-08-21 13:16 | EXTERNAL MEDICAL SUMMARY RPT | Continuity of Care Document ---
:1955 Author Organization [facility] Address [address] [place] [address] Phone Care Team Providers Name Role Phone Unavailable Unavailable Unavailable Allergies No information. Encounters No information. Functional Status No information. Immunizations No information. Medications No information. Problems No information. Procedures No information. Results/Labs test date author facility value unit interpret ation Result panel 1 (unknown) (no date) (unknown) All (no value) (units unknown ) (unknown) Result panel 2 (unknown) (no date) (unknown) All (no value) (units unknown ) (unknown) Result panel 3 (unknown) (no date) (unknown) All (no value) (units unknown ) (unknown) Result panel 4 (unknown) (no date) (unknown) All (no value) (units unknown ) (unknown) Result panel 5 (unknown) (no date) (unknown) All (no value) (units unknown ) (unknown) Result panel 6 (unknown) (no date) (unknown) All (no value) (units unknown ) (unknown) Result panel 7 (unknown) (no date) (unknown) All (no value) (units unknown ) (unknown) Result panel 8 (unknown) (no date) (unknown) All (no value) (units unknown ) (unknown) Result panel 9 (unknown) (no date) (unknown) All (no value) (units unknown ) (unknown) Result panel 10 (unknown) (no date) (unknown) All (no value) (units unknown ) (unknown) Result panel 11 (unknown) (no date) (unknown) All (no value) (units unknown ) (unknown) Result panel 12 (unknown) (no date) (unknown) All (no value) (units unknown ) (unknown) Result panel 13 (unknown) (no date) (unknown) All (no value) (units unknown ) (unknown) Result panel 14 (unknown) (no date) (unknown) All (no value) (units unknown ) (unknown) Result panel 15 (unknown) (no date) (unknown) All (no value) (units unknown ) (unknown) Result panel 16 (unknown) (no date) (unknown) All (no value) (units unknown ) (unknown) Result panel 17 (unknown) (no date) (unknown) All (no value) (units unknown ) (unknown) Result panel 18 (unknown) (no date) (unknown) All (no value) (units unknown ) (unknown) Result panel 19 (unknown) (no date) (unknown) All (no value) (units unknown ) (unknown) Result panel 20 (unknown) (no date) (unknown) All (no value) (units unknown ) (unknown) Result panel 21 (unknown) (no date) (unknown) All (no value) (units unknown ) (unknown) Result panel 22 (unknown) (no date) (unknown) All (no value) (units unknown ) (unknown) Result panel 23 (unknown) (no date) (unknown) All (no value) (units unknown ) (unknown) Result panel 24 (unknown) (no date) (unknown) All (no value) (units unknown ) (unknown) Result panel 25 (unknown) (no date) (unknown) All (no value) (units unknown ) (unknown) Result panel 26 (unknown) (no date) (unknown) All (no value) (units unknown ) (unknown) Result panel 27 (unknown) (no date) (unknown) All (no value) (units unknown ) (unknown) Result panel 28 (unknown) (no date) (unknown) All (no value) (units unknown ) (unknown) Result panel 29 (unknown) (no date) (unknown) All (no value) (units unknown ) (unknown) Result panel 30 (unknown) (no date) (unknown) All (no value) (units unknown ) (unknown) Result panel 31 (unknown) (no date) (unknown) All (no value) (units unknown ) (unknown) Result panel 32 (unknown) (no date) (unknown) All (no value) (units unknown ) (unknown) Result panel 33 (unknown) (no date) (unknown) All (no value) (units unknown ) (unknown) Result panel 34 (unknown) (no date) (unknown) All (no value) (units unknown ) (unknown) Result panel 35 (unknown) (no date) (unknown) All (no value) (units unknown ) (unknown) Result panel 36 (unknown) (no date) (unknown) All (no value) (units unknown ) (unknown) Result panel 37 (unknown) (no date) (unknown) All (no value) (units unknown ) (unknown) Result panel 38 (unknown) (no date) (unknown) All (no value) (units unknown ) (unknown) Result panel 39 (unknown) (no date) (unknown) All (no value) (units unknown ) (unknown) Result panel 40 (unknown) (no date) (unknown) All (no value) (units unknown ) (unknown) Result panel 41 (unknown) (no date) (unknown) All (no value) (units unknown ) (unknown) Result panel 42 (unknown) (no date) (unknown) All (no value) (units unknown ) (unknown) Result panel 43 (unknown) (no date) (unknown) All (no value) (units unknown ) (unknown) Result panel 44 (unknown) (no date) (unknown) All (no value) (units unknown ) (unknown) Result panel 45 (unknown) (no date) (unknown) All (no value) (units unknown ) (unknown) Result panel 46 (unknown) (no date) (unknown) All (no value) (units unknown ) (unknown) Result panel 47 (unknown) (no date) (unknown) All (no value) (units unknown ) (unknown) Result panel 48 (unknown) (no date) (unknown) All (no value) (units unknown ) (unknown) Result panel 49 (unknown) (no date) (unknown) All (no value) (units unknown ) (unknown) Result panel 50 (unknown) (no date) (unknown) All (no value) (units unknown ) (unknown) Result panel 51 (unknown) (no date) (unknown) All (no value) (units unknown ) (unknown) Result panel 52 (unknown) (no date) (unknown) All (no value) (units unknown ) (unknown) Result panel 53 (unknown) (no date) (unknown) All (no value) (units unknown ) (unknown) Result panel 54 (unknown) (no date) (unknown) All (no value) (units unknown ) (unknown) Result panel 55 (unknown) (no date) (unknown) All (no value) (units unknown ) (unknown) Result panel 56 (unknown) (no date) (unknown) All (no value) (units unknown ) (unknown) Result panel 57 (unknown) (no date) (unknown) All (no value) (units unknown ) (unknown) Result panel 58 (unknown) (no date) (unknown) All (no value) (units unknown ) (unknown) Result panel 59 (unknown) (no date) (unknown) All (no value) (units unknown ) (unknown) Result panel 60 (unknown) (no date) (unknown) All (no value) (units unknown ) (unknown) Result panel 61 (unknown) (no date) (unknown) All (no value) (units unknown ) (unknown) Result panel 62 (unknown) (no date) (unknown) All (no value) (units unknown ) (unknown) Result panel 63 (unknown) (no date) (unknown) All (no value) (units unknown ) (unknown) Result panel 64 (unknown) (no date) (unknown) All (no value) (units unknown ) (unknown) Social History No information. Vital Signs No information.
[2022-08-21 13:17] LABS: BILIRUBIN,URINE NEGATIVE (NEGATIVE); GLUCOSE, URINE (UA) NEGATIVE (NEGATIVE); KETONES,URINE (UA) NEGATIVE (NEGATIVE); LEUKOCYTE ESTERASE, URINE SMALL (NEGATIVE); NITRITE,URINE POSITIVE (NEGATIVE); OCCULT BLOOD,URINE NEGATIVE (NEGATIVE); PROTEIN,URINE NEGATIVE (NEGATIVE); UROBILINOGEN,URINE 0.2 (NORMAL) E.U./dL (NORMAL)
[2022-08-21] MEDS ORDERED: KETOROLAC 15 MG/ML VIAL IVP STA (13:39)
[2022-08-21] MEDS ORDERED: HYDROmorphone 1 MG/ML CARPUJECT IVP STA (13:39)
--- NOTE | 2022-08-21 13:40 | ED Physician Documentation ---
PD HPI ABD PAIN - Stated complaint Stated Complaint: ABDOMINAL PX - Chief complaint Chief Complaint: Abd Pain - History obtained from History obtained from: Patient - Additional information Additional information: 67-year-old woman with history of exploratory laparotomy, ovarian cystectomy and recent negative EGD but no history of endoscopy in the past presents with lower abdominal pain starting yesterday. It is a constant midline pain. She notes dark urine. No changes in bowel movements. No fevers, no nausea. Review of Systems Constitutional: denies: Fever, Chills Cardiac: denies: Chest pain / pressure, Palpitations Respiratory: denies: Dyspnea, Cough GI: reports: Abdominal Pain. 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 HEENT: Tonsil/Adenoidectomy - Present Medications Home Medications: Ambulatory Orders Medication Instructions Recorded Confirmed cephALEXin [Keflex] 500 mg PO TID #15 cap 08/02/22 Ciprofloxacin [Cipro] 250 mg PO Q12H #10 tablet 08/21/22 - Allergies Allergies/Adverse Reactions: Allergies Allergy/AdvReac Type Severity Reaction Status Date / Time paroxetine HCl * [From Paxil] AdvReac Intermediate "like im Verified 08/21/22 12:58 crawling out of my skin" escitalopram oxalate * AdvReac Headache Verified 08/21/22 12:58 [From Lexapro] - Social History Does the pt smoke?: No Smoking Status: Never smoker Does the pt drink ETOH?: No Does the pt have substance abuse?: No - Immunizations Immunizations are current?: Yes - POLST Patient has POLST: No PD ED PE NORMAL - Vitals Vital signs reviewed: Yes - General General: Alert and oriented X 3, No acute distress - Abdomen Abdomen: Normal bowel sounds, Soft, Other (Mild tenderness in the low abdomen and suprapubic areas without surgical signs) - Derm Derm: Normal color, Warm and dry - Neuro Neuro: Alert and oriented X 3, Normal speech Results - Vitals Vitals: Vital Signs - 24 hr 08/21/22 12:54 Temperature 36.2 C L Heart Rate 77 Respiratory 14 Rate Blood Pressure 119/70 O2 Saturation 97 Oxygen O2 Source Room air - Labs Labs: Laboratory Tests 08/21/22 08/21/22 08/21/22 13:06 13:08 13:08 WBC 6.3 RBC 4.90 Hgb 14.1 Hct 43.0 MCV 87.8 MCH 28.8 MCHC 32.8 RDW 14.1 Plt Count 299 MPV 9.4 Neut # (Auto) 2.4 Lymph # (Auto) 3.2 [place] # (Auto) 0.4 Eos # (Auto) 0.2 Baso # (Auto) 0.1 Absolute Nucleated RBC 0.00 Nucleated RBC % 0.0 Sodium 139 Potassium 3.9 Chloride 104 Carbon Dioxide 25 Anion Gap 10.0 BUN 15 Creatinine 0.8 Estimated GFR (MDRD) 71 L Glucose 110 H Calcium 9.2 Total Bilirubin 0.7 AST 35 ALT 31 Alkaline Phosphatase 68 Total Protein 8.1 Albumin 3.9 Globulin 4.2 Albumin/Globulin Ratio 0.9 L Lipase 47 Urine Color YELLOW Urine Clarity CLEAR Urine pH 6.0 Ur Specific [place] >=1.030 H Urine Protein NEGATIVE Urine Glucose (UA) NEGATIVE Urine Ketones NEGATIVE Urine Occult Blood NEGATIVE Urine Nitrite POSITIVE H Urine Bilirubin NEGATIVE Urine Urobilinogen 0.2 (NORMAL) Ur Leukocyte Esterase SMALL H Urine RBC None Seen Urine WBC >25 H Ur Squamous Epith Cells MANY Squamous H Urine Bacteria Many H Urine Mucus Marked Strands Ur Microscopic Review INDICATED Urine Culture Comments NOT INDICATED PD Medical Decision Making - ED course ED course: 59-year-old woman presents with a days worth of suprapubic pain with dark urine. CBC reviewed and normal. CMP reviewed and normal. Urinalysis reviewed and consistent with urinary tract infection. Differential includes diverticulitis, vascular emergency, appendicitis, urinary tract infection, pyelonephritis, or other surgical emergency. CT independently reviewed and read reviewed is as follows: 1. Again noted is significant distal gastric wall thickening predominately involving gastric antrum and narrowing of the lumen. Finding may represent gastritis possibly from peptic ulcer disease. Circumferential gastric wall mass cannot be entirely excluded. GI correlation is recommended. 2. No bowel obstruction. No small bowel or colon wall thickening. No free fluid or free air. 3. Again noted is suggestion of chronic left UPJ obstruction with moderate to severe left-sided renal pelvocaliectasis. Nonobstructing left renal calculi unchanged from prior study. No right-sided hydronephrosis or hydroureter. Departure - Departure Disposition: 01 Home, Self Care Clinical Impression: Abdominal pain, Urinary tract infection Condition: Good Record reviewed to determine appropriate education?: Yes Instructions: ED UTI Cystitis Female Prescriptions: Ciprofloxacin [Cipro] 250 mg PO Q12H #10 tablet Comments: Cause of your frequent UTIs is not known. On the CAT scan you do have chronic left UPJ obstruction. This should be mentioned to your primary care physician, call her office to see her early next week. She may want to refer you to a urologist. Return for new or worsening symptoms. Discharge Date/Time: 08/21/22 15:52
[2022-08-21 13:41] LABS: ALBUMIN 3.9 g/dL (3.2-5.5); ALBUMIN/GLOBULIN RATIO 0.9 (1.0-2.2); BILIRUBIN,TOTAL 0.7 mg/dL (0.2-1.0); CALCIUM 9.2 mg/dL (8.5-10.3); CREATININE 0.8 mg/dL (0.4-1.0); POTASSIUM 3.9 mmol/L (3.5-5.0); TOTAL PROTEIN 8.1 g/dL (6.7-8.2)
[2022-08-21 14:12] LABS: CLARITY,URINE CLEAR (CLEAR)
[2022-08-21 14:23] LABS: WBC,URINE >25 /HPF (0-5)
[2022-08-21 14:24] LABS: BACTERIA,URINE Many /HPF (None Seen); MUCUS,URINE Marked Strands; RBC,URINE None Seen /HPF (0-5); SQUAMOUS EPITHELIAL CELL,UR MANY Squamous (<= Few)
[2022-08-21] MEDS ORDERED: iohexoL-300 100 ML VIAL ONE (14:38)
--- NOTE | 2022-08-21 15:18 | CT Report ---
PROCEDURE: ABDOMEN/PELVIS W INDICATIONS: IV only, low abd CONTRAST: 100ml omni 300 TECHNIQUE: After the administration of IV contrast, 5 mm thick sections acquired from the diaphragms to the symp hysis. 5 mm thick coronal and sagittal reformats were acquired. For radiation dose reduction, the f ollowing was used: automated exposure control, adjustment of mA and/or kV according to patient size. COMPARISON: CT of abdomen and pelvis dated 07/21/2021 and ultrasound of abdomen dated 03/05/2021 FINDINGS: Image quality: Excellent. ABDOMEN: Lung bases: Lung bases are clear. Heart size is normal. Solid organs: Liver and spleen are normal in size and enhancement. Gallbladder is within normal [place] its. Biliary system is non dilated. Pancreas enhances normally. No adrenal nodules. Nonobstructing left renal calculi are again seen measures up to 8 x 6 mm in size in the upper pole of left kidney. Moderate left renal pelvocaliectasis extending to the level of the left UVJ is again seen unchanged f rom prior study. No right-sided hydronephrosis or hydroureter. Left ureter is normal in size. Peritoneum and bowel: There is no bowel obstruction. Diffuse thickening involving gastric antrum is a gain seen with marked narrowing of the lumen. Underlying gastric wall mass cannot be entirely exclude d. No small bowel or colon wall thickening. No mesenteric fat stranding. No free fluid or free air. Nodes and vessels: No retroperitoneal or mesenteric adenopathy by size criteria. Aorta and inferior vena cava are normal in size. Miscellaneous: No ventral hernias. PELVIS: Genitourinary: Bladder wall thickness is normal. Miscellaneous: No inguinal hernias or adenopathy. Bones: No suspicious bony lesions. No vertebral body compression fractures. IMPRESSION: 1. Again noted is significant distal gastric wall thickening predominately involving gastric antrum a nd narrowing of the lumen. Finding may represent gastritis possibly from peptic ulcer disease. Circum ferential gastric wall mass cannot be entirely excluded. GI correlation is recommended. 2. No bowel obstruction. No small bowel or colon wall thickening. No free fluid or free air. 3. Again noted is suggestion of chronic left UPJ obstruction with moderate to severe left-sided renal pelvocaliectasis. Nonobstructing left renal calculi unchanged from prior study. No right-sided hydro nephrosis or hydroureter. Reviewed by: Hammad Delacruz MD on 08/21/2022 3:17 PM PST Approved by: Hammad Delacruz MD on 08/21/2022 3:17 PM PST Station ID: [id number]
[2022-08-21] MEDS ORDERED: CIPROFLOXACIN 250 MG TABLET PO STA (15:24)
[2022-08-21] MEDS ORDERED: METOCLOPRAMIDE 10 MG/2 ML VIAL IVP STA (15:30)
== END 2022-08-21 15:52 | disposition home or self-care (01) ==
LOC: ED 12:45
DX: N39.0 Urinary tract infection, site not specified (principal); N13.5 Crossing vessel and stricture of ureter without hydronephrosis
CPT/HCPCS: 36415; 74177; 80053; 81001; 83690; 85025; 87086; 87181; 96374; 96375; 99284; A9270; J1170; J2765; Q9967; 81003

== ENCOUNTER 2022-11-06 10:15 | Outpatient (CLI) | payer MEDICARE, MEDICAID | END 2022-11-06 10:30 | disposition home or self-care (01) | LOC: LAB.N 10:15 | PROVIDERS: ATTEND Physician Assistant Medical | DX: N39.0 Urinary tract infection, site not specified (principal) | CPT/HCPCS: 87086; 87181 ==

== ENCOUNTER 2023-04-09 13:15 | Outpatient (CLI) | payer MEDICARE, MEDICAID | END 2023-04-09 13:30 | disposition home or self-care (01) | LOC: LAB.N 13:15 | PROVIDERS: ATTEND Family Medicine | DX: N39.0 Urinary tract infection, site not specified (principal) | CPT/HCPCS: 87086; 87181 ==

== ENCOUNTER 2023-04-15 08:00 | Outpatient (CLI) | payer MEDICARE, MEDICAID ==
[2023-04-15 16:20] LABS: BILIRUBIN,URINE NEGATIVE (NEGATIVE); GLUCOSE, URINE (UA) NEGATIVE (NEGATIVE); KETONES,URINE (UA) NEGATIVE (NEGATIVE); LEUKOCYTE ESTERASE, URINE SMALL (NEGATIVE); NITRITE,URINE NEGATIVE (NEGATIVE); OCCULT BLOOD,URINE NEGATIVE (NEGATIVE); PH,URINE 5.5 PH (5.0-7.5); PROTEIN,URINE NEGATIVE (NEGATIVE); UROBILINOGEN,URINE 0.2 (NORMAL) E.U./dL (NORMAL)
[2023-04-15 16:21] LABS: CLARITY,URINE HAZY (CLEAR)
[2023-04-15 16:59] LABS: BACTERIA,URINE Few /HPF (None Seen); RBC,URINE 0-5 /HPF (0-5); SQUAMOUS EPITHELIAL CELL,UR MOD Squamous (<= Few); YEAST,URINE PRESENT
== END 2023-04-15 23:59 | disposition home or self-care (01) ==
LOC: LAB 08:00
PROVIDERS: ATTEND Urology
DX: N39.0 Urinary tract infection, site not specified (principal)
CPT/HCPCS: 81001; 87086

== ENCOUNTER 2023-04-18 13:43 | Emergency (ER) | payer MEDICARE, MEDICAID ==
[2023-04-18 14:10] LABS: BASOPHILS # (AUTO) 0.1 10^3/uL (0.0-0.1); BASOPHILS % (AUTO) 0.7 %; EOSINOPHILS # (AUTO) 0.3 10^3/uL (0.0-0.7); EOSINOPHILS % (AUTO) 3.9 %; HCT - HEMATOCRIT 39.8 % (37.0-47.0); HGB - HEMOGLOBIN 12.9 g/dL (12.0-16.0); LYMPHOCYTES # (AUTO) 3.3 10^3/uL (1.5-3.5); LYMPHOCYTES % (AUTO) 48.9 %; MEAN CORPUSCULAR HEMOGLOBIN 28.9 pg (27.0-31.0); MEAN CORPUSCULAR HGB CONC 32.4 g/dL (32.0-36.0); MEAN CORPUSCULAR VOLUME 89.2 fL (81.0-99.0); MEAN PLATELET VOLUME 9.3 fL (7.9-10.8); MONOCYTES # (AUTO) 0.5 10^3/uL (0.0-1.0); MONOCYTES % (AUTO) 7.3 %; NEUTROPHILS # (AUTO) 2.6 10^3/uL (1.5-6.6); NEUTROPHILS % (AUTO) 39.1 %; PLT - PLATELET COUNT 295 10^3/uL (130-450); RED BLOOD COUNT 4.46 10^6/uL (4.20-5.40); RED CELL DISTRIBUTION WIDTH 14.4 % (12.0-15.0); WHITE BLOOD COUNT 6.7 x10^3/uL (4.8-10.8)
[2023-04-18 14:19] LABS: GLUCOSE, URINE (UA) NEGATIVE (NEGATIVE); KETONES,URINE (UA) NEGATIVE (NEGATIVE); LEUKOCYTE ESTERASE, URINE SMALL (NEGATIVE); NITRITE,URINE NEGATIVE (NEGATIVE); OCCULT BLOOD,URINE LARGE (NEGATIVE); PH,URINE 5.5 PH (5.0-7.5); PROTEIN,URINE TRACE mg/dL (NEGATIVE); UROBILINOGEN,URINE 1 (NORMAL) E.U./dL (NORMAL)
[2023-04-18 14:20] LABS: BILIRUBIN,URINE NEGATIVE (NEGATIVE); CLARITY,URINE SL. CLOUDY (CLEAR); ICTOTEST,URINE NEGATIVE
[2023-04-18 14:23] LABS: ALBUMIN/GLOBULIN RATIO 1.3 (1.0-2.2); BILIRUBIN,TOTAL 0.4 mg/dL (0.2-1.0); CALCIUM 9.2 mg/dL (8.5-10.3); CREATININE 0.7 mg/dL (0.6-1.3); POTASSIUM 4.1 mmol/L (3.5-4.5); TOTAL PROTEIN 7.2 g/dL (6.4-8.9)
[2023-04-18] MEDS: FAMOTIDINE 20 MG TABLET PO STA (14:49)
[2023-04-18] MEDS: LIDOCAINE VISCOUS 2% 15 ML ORAL SYRINGE MM STA (14:49)
[2023-04-18] MEDS: SUCRALFATE 1 GM/10 ML UDC PO STA (14:49)
[2023-04-18] MEDS: MAG HYDROX/AL HYDROX/SIMETH 30 ML UDC PO STA (14:50)
--- NOTE | 2023-04-18 14:51 | ED Physician Documentation ---
History of Present Illness - Stated complaint Stated Complaint: STOMACH PX,TALAMANTES - Chief complaint Chief Complaint: Abd Pain - History obtained from History obtained from: Patient - History of Present Illness Timing: How many days ago (Several days) Pain level max: 4 Pain level now: 4 - Additonal information Additional information: 68-year-old female presents to the emergency department stating that she has had intermittent abdominal pain for the past 1 week. States that it is in the epigastric region. States it is worse with eating and drinking, nothing makes it better. She states she is also being treated for UTI, currently is on Macrobid. She had a headache earlier in the week but that has resolved. No fevers. No chills. No diarrhea or constipation. She states she did have 1 bout of emesis a few days ago. She states that she is concerned [place]. 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 HEENT: None Psych: Depression, Anxiety Musculoskeletal: Osteoarthritis Derm: None - Past Surgical History Past Surgical History: Yes General: Other Ortho: 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: 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 HEENT: Cataracts, Tonsil/Adenoidectomy - Present Medications Home Medications: Ambulatory Orders Medication Instructions Recorded Confirmed Nitrofurantoin [Macrobid] 100 mg ORAL BID 04/18/23 04/18/23 polyethylene glycoL 3350(BULK) 17 gm PO DAILY PRN #1 each 04/18/23 [Miralax] - Allergies Allergies/Adverse Reactions: Allergies Allergy/AdvReac Type Severity Reaction Status Date / Time paroxetine HCl * [From Paxil] AdvReac Intermediate "like im Verified 04/18/23 13:51 crawling out of my skin" escitalopram oxalate * AdvReac Headache Verified 04/18/23 13:51 [From Lexapro] - Social History Does the pt smoke?: No Smoking Status: Never smoker Does the pt drink ETOH?: No Does the pt have substance abuse?: No - Immunizations Immunizations are current?: Yes - POLST Patient has POLST: No PD ED PE NORMAL - Vitals Vital signs reviewed: Yes - General General: Alert and oriented X 3, No acute distress - HEENT HEENT: PERRL, Moist mucous membranes - Neck Neck: Supple, no meningeal sign - Cardiac Cardiac: RRR, Strong equal pulses - Respiratory Respiratory: No respiratory distress, Clear bilaterally - Abdomen Abdomen: Normal bowel sounds, Soft, Non distended, Other (Mild tenderness palpation epigastric without peritoneal signs.) - Back Back: No CVA TTP, No spinal TTP - Derm Derm: Warm and dry - Extremities Extremities: No edema, No calf tenderness / cord - Neuro Neuro: Alert and oriented X 3 - Psych Psych: Normal mood, Normal affect Results - Vitals Vitals: Vital Signs - 24 hr 04/18/23 04/18/23 04/18/23 13:51 14:15 17:15 Temperature 36.6 C 36.8 C Heart Rate 74 65 65 Respiratory 16 16 12 Rate Blood Pressure 138/76 H 123/79 131/71 H O2 Saturation 96 97 96 Oxygen O2 Source Room air - Labs Labs: Laboratory Tests 04/18/23 04/18/23 04/18/23 14:05 14:05 14:10 WBC 6.7 RBC 4.46 Hgb 12.9 Hct 39.8 MCV 89.2 MCH 28.9 MCHC 32.4 RDW 14.4 Plt Count 295 MPV 9.3 Neut # (Auto) 2.6 Lymph # (Auto) 3.3 [place] # (Auto) 0.5 Eos # (Auto) 0.3 Baso # (Auto) 0.1 Absolute Nucleated RBC 0.00 Nucleated RBC % 0.0 Sodium 138 Potassium 4.1 Chloride 106 Carbon Dioxide 27 Anion Gap 5.0 L BUN 12 Creatinine 0.7 Estimated GFR (MDRD) 83 L Glucose 94 Calcium 9.2 Total Bilirubin 0.4 AST 36 ALT 36 Alkaline Phosphatase 132 H Total Protein 7.2 Albumin 4.0 Globulin 3.2 Albumin/Globulin Ratio 1.3 Lipase 44 Urine Color YELLOW Urine Clarity SL. CLOUDY Urine pH 5.5 Ur Specific [place] >=1.030 H Urine Protein TRACE Urine Glucose (UA) NEGATIVE Urine Ketones NEGATIVE Urine Occult Blood LARGE H Urine Nitrite NEGATIVE Urine Bilirubin NEGATIVE Urine Urobilinogen 1 (NORMAL) Ur Leukocyte Esterase SMALL H Ur Microscopic Review NOT INDICATED Urine Culture Comments NOT INDICATED - Rads (name of study) CT abd/pelvis Relevant Findings:: Final report received, See rad report PD Medical Decision Making - ED course Complexity details: reviewed results, re-evaluated patient, considered differential, d/w patient ED course: Patient is a 68-year-old female with abdominal pain and headache. Headache resolved in the emergency department with Toradol and droperidol. No acute findings on laboratory testing. Headache is similar to prior headaches. She states the GI cocktail did not help her abdominal pain, therefore a CT was performed. This does show constipation. Will place on MiraLAX. She is tolerating p.o. without difficulty here. No vomiting. We will have her follow- up with her PCP for further care. No emergency medical condition at this time. No subarachnoid hemorrhage, evidence of tumor, etc. Patient counseled regarding signs and symptoms for which I believe and urgent re-evaluation would be necessary. Patient with good understanding of and agreement to plan and is comfortable going home at this time This document was made in part using voice recognition software. While efforts are made to proofread this document, sound alike and grammatical errors may occur. Departure - Departure Disposition: 01 Home, Self Care Clinical Impression: Abdominal pain Qualifiers: Abdominal location: generalized Qualified Code(s): R10.84 - Generalized abdominal pain Constipation Qualifiers: Constipation type: unspecified constipation type Qualified Code(s): K59.00 - Constipation, unspecified Headache Qualifiers: Headache type: unspecified Headache chronicity pattern: acute headache Intractability: not intractable Qualified Code(s): R51.9 - Headache, unspecified Condition: Good Instructions: ED Abdominal Pain Female Non-Specific Abdominal Pain, ED Constipation, ED Cephalgia Unspecified Follow-Up: Your,doctor in 1 week [Other] Prescriptions: polyethylene glycoL 3350(BULK) [Miralax] 17 gm PO DAILY PRN #1 each PRN Reason: Constipation Comments: Please follow with your doctor for further care. Please return if you worsen. Please use the medications as prescribed at home. Make sure you are drinking plenty of water. Your prescription was sent to [facility] in [place]. Forms: PCP List Discharge Date/Time: 04/18/23 17:27
[2023-04-18] MEDS: IOVERSOL 320 100 ML VIAL IVP ONE (16:06)
--- NOTE | 2023-04-18 16:42 | CT Report ---
PROCEDURE: CT abdomen pelvis with contrast INDICATIONS: diffuse abd pain TECHNIQUE: Helical axial CT of the abdomen and pelvis was obtained after intravenous contrast adminis tration and reformatted in multiple planes. Radiation dose reduction was achieved using automated exp osure control or adjustment of mA and/or kV according to patient size. COMPARISON: None FINDINGS: Lower thorax: The lung bases are clear. Heart size normal. No hiatal hernia. Liver: Normal in size and attenuation. No contour deformity present. Biliary system: No calcified cholelithiasis or pericholecystic inflammation. No evidence of bile du ct dilatation. Pancreas: Unremarkable without mass or inflammation evident. Spleen: Normal in size and density. Adrenals: Normal morphology and density. Reproductive system: Unremarkable as visualized. Urinary system: Large left peripelvic cyst. No hydronephrosis bilaterally. Subcentimeter nonobstruct rico left renal calculus associated with scarring, also stable. Gastrointestinal system: Moderate fecal debris throughout the right colon. No obstruction. Appendix: No findings to suggest acute appendicitis. Peritoneal spaces: No mesenteric or retroperitoneal adenopathy. No free air. No free fluid. Vasculature: The IVC, aorta and iliac vasculature are unremarkable. Abdominal wall: Abdominal wall is intact without evidence of ventral or inguinal hernias. Musculoskeletal: Normal bone mineralization. No acute fractures. IMPRESSION: No acute CT findings in the abdomen and pelvis. Moderate fecal debris in the right colon without obstruction or change from the prior. Left renal parapelvic cyst or chronic UPJ obstruction as well as nonobstructive calculi, unchanged Reviewed by: Venu Bailon MD on 04/18/2023 3:41 PM AKDT Approved by: Venu Bailon MD on 04/18/2023 3:41 PM AKDT Station ID: [id number]
[2023-04-18] MEDS: KETOROLAC 30 MG/ML VIAL IVP STA (17:01)
[2023-04-18] MEDS: DROPERIDOL 5 MG/2 ML VIAL IVP STA (17:01)
[2023-04-18 17:17] VITALS: BP 131/71; O2SAT 96
== END 2023-04-18 17:27 | disposition home or self-care (01) ==
LOC: ED 13:43
DX: R10.84 Generalized abdominal pain (principal); K59.00 Constipation, unspecified; R51.9 Headache, unspecified
CPT/HCPCS: 36415; 80053; 81001; 81003; 83690; 85025; 87086; 96374; 99283

== ENCOUNTER 2023-05-26 08:35 | Outpatient (CLI) | payer MEDICARE, MEDICAID ==
[~2023-05-26 08:35] MED LIST: LIDOCAINE-MPF 1% 5 ML VIAL ONE
[2023-05-26] MEDS ORDERED: LIDOCAINE-MPF 1% 5 ML VIAL TD ONE (11:26)
--- NOTE | 2023-05-26 14:36 | Ultrasound Report ---
PROCEDURE: FNA Bx w/US Gdn 1st Les INDICATIONS: THYROID NODULE TECHNIQUE: The indications, alternatives, benefits, risks, and complications of the procedure were explained to the patient. Written informed consent was obtained and placed in the chart. The area of interest wa s examined sonographically and a site was chosen for ultrasound guided percutaneous sampling. The sk in was prepared and draped in the usual fashion, and anesthetized with 1% lidocaine infiltrated from the skin down to the lesion. Multiple passes were then performed, with contents emptied into an appr [facility] pathology specimen container. A bandage was applied to the area of access at completion of t he study. COMPARISON: Thyroid ultrasound 04/29/2023. FINDINGS: Location(s) of lesion(s) sampled: Right thyroid (nodule one described on prior ultrasound 04/29/2023) Cascade: 25 gauge hypodermic needles. Number of passes: 6 Medications: 1% lidocaine for local anaesthesia. Complications: None. IMPRESSION: Successful ultrasound-guided right thyroid nodule fine needle aspiration, with cytology results pendi ng. Reviewed by: Rebecca Saravia MD on 05/26/2023 2:34 PM PDT Approved by: Rebecca Saravia MD on 05/26/2023 2:34 PM PDT Station ID: [id number]
== END 2023-05-26 08:36 | disposition home or self-care (01) ==
LOC: DI 08:35
PROVIDERS: ATTEND Internal Medicine
DX: E04.2 Nontoxic multinodular goiter (principal)
CPT/HCPCS: 10005

== ENCOUNTER 2023-06-14 15:45 | Outpatient (CLI) | payer MEDICARE, MEDICAID ==
[2023-06-16 08:10] LABS: HSV 1 IGG TYPE SPEC 5.64 index (0.00-0.90); HSV 2 IGG TYPE SPEC 11.5 index (0.00-0.90)
== END 2023-06-14 16:00 | disposition home or self-care (01) ==
LOC: LAB.N 15:45
PROVIDERS: ATTEND Family Medicine
DX: B00.9 Herpesviral infection, unspecified (principal)
CPT/HCPCS: 36415; 86695; 86696; 87255; 87529

== ENCOUNTER 2023-07-24 10:27 | Emergency (ER) | payer MEDICARE, MEDICAID ==
[2023-07-24 10:46] VITALS: O2SAT 99
--- NOTE | 2023-07-24 11:46 | ED Physician Documentation ---
PD HPI SKIN - Stated complaint Stated Complaint: LT EYE IRRITATION - Chief complaint Chief Complaint: Wound - History obtained from History obtained from: Patient - History of Present Illness Timing - onset: How many months ago (2) Timing - duration: Months (2) Timing - details: Gradual onset, Still present, Waxing and waning Location: Face Quality / character: Itchy, Painful, Burning, Crusted Improved by: Steroid cream Associated symptoms: No: Fever, Myalgias, Joint pain, Headache, Facial swelling, Dyspnea, Abd pain, N/V/D, Urinary sx Contributing factors: Unknown Similar symptoms before: No diagnosis Recently seen: Clinic - Additional information Additional information: Cassandra Schultz is a 68-year-old female who has developed a rash on the left side of her face. She has some crusting to this and scabbing and she is here today because she is having burning sensation and is uncomfortable. She has had this for about 2 months. She has been in to see her doctor she has been placed on antibiotic looks like she was placed on sulfamethoxazole trimethoprim and she has been placed on some clobetasol cream as well. Neither of these seem to help much. The patient does have a history of herpes which she usually gets on her hip and she has been treated for this twice in the past 2 months this never made a difference to the appearance of the rash on her face. Review of Systems Constitutional: denies: Fever Eyes: reports: Irritation. 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 HEENT: Cataracts, Tonsil/Adenoidectomy - Present Medications Home Medications: Ambulatory Orders Medication Instructions Recorded Confirmed Nitrofurantoin [Macrobid] 100 mg ORAL BID 04/18/23 04/18/23 polyethylene glycoL 3350(BULK) 17 gm PO DAILY PRN #1 each 04/18/23 [Miralax] Clotrimazole/Betamethasone Crm 1 applic TOP BID #45 gm 05/04/23 [Lotrisone Cream] Azithromycin [Zithromax] 250 mg PO DAILY #6 tablet 07/24/23 Mupirocin 1 gm TP BID #22 gm 07/24/23 - Allergies Allergies/Adverse Reactions: Allergies Allergy/AdvReac Type Severity Reaction Status Date / Time paroxetine HCl * [From Paxil] AdvReac Intermediate "like im Verified 07/24/23 10:43 crawling out of my skin" escitalopram oxalate * AdvReac Headache Verified 07/24/23 10:43 [From Lexapro] - Social History Does the pt smoke?: No Smoking Status: Never smoker Does the pt drink ETOH?: No Does the pt have substance abuse?: No - Immunizations Immunizations are current?: Yes - POLST Patient has POLST: No PD ED PE NORMAL - Vitals Vital signs reviewed: Yes (Normal) - General General: Alert and oriented X 3, No acute distress, Well developed/nourished - HEENT HEENT: Atraumatic, PERRL, EOMI, Other (There is erythema and honey crusting to the left face from the nose to the lateral canthus and above and below eyelids and cheek there is a spot on the right lateral canthus similarly. No drainage today.) - Neck Neck: Supple, no meningeal sign - Cardiac Cardiac: RRR, No murmur - Respiratory Respiratory: No respiratory distress, Clear bilaterally - Extremities Extremities: No deformity, No edema - Neuro Neuro: Alert and oriented X 3, history faculty member 2-12 intact, No motor deficit, No sensory deficit, Normal speech Eye Opening: Spontaneous Motor: Obeys Commands Verbal: Oriented GCS Score: 15 - Psych Psych: Other (mood is defeated affect is blunted.) Results - Vitals Vitals: Vital Signs - 24 hr 07/24/23 10:38 Temperature 36.2 C L Heart Rate 74 Respiratory 16 Rate Blood Pressure 124/75 O2 Saturation 99 Oxygen O2 Source Room air PD Medical Decision Making - ED course Complexity details: considered differential, d/w patient ED course: 68-year-old female with undergoing unsuccessful treatment for a rash on her face over the past 2 months appears to have impetigo. She has been treated previously with the sulfamethoxazole trimethoprim without improvement she has been on his valacyclovir twice in this period of time without improvement today we are placing her onto some mupirocin and is azithromycin. Departure - Departure Disposition: 01 Home, Self Care Clinical Impression: Impetigo Condition: Stable Instructions: Impetigo Follow-Up: Evaristo Pete ARNP [Provider Admit Priv/Credential] - Prescriptions: Mupirocin 1 gm TP BID #22 gm Azithromycin [Zithromax] 250 mg PO DAILY #6 tablet Comments: Cassandra, today it looks like the rash on your face is a bacterial infection usually with staph and strep. There is an ointment to use on this twice per day that should be very effective on improving this condition. In addition I have prescribed some oral antibiotic as well and both of these prescription have been E scrib[facility] to [facility] in [place]. Our expectation with treatment is day by day improvement. A follow-up with dermatology is indicated if you do not have resolution of your symptoms.
[2023-07-24 12:24] VITALS: BP 147/82
== END 2023-07-24 12:20 | disposition home or self-care (01) ==
LOC: ED 10:27
DX: L01.00 Impetigo, unspecified (principal)
CPT/HCPCS: 99282; 99284

== ENCOUNTER 2023-08-23 15:00 | Outpatient (CLI) | payer MEDICARE, MEDICAID | END 2023-08-23 15:15 | disposition home or self-care (01) | LOC: LAB.N 15:00 | PROVIDERS: ATTEND Physician Assistant Medical | DX: R10.9 Unspecified abdominal pain (principal) | CPT/HCPCS: 87086 ==

== ENCOUNTER 2023-09-17 08:00 | Outpatient (CLI) | payer MEDICARE, MEDICAID ==
[2023-09-17 21:19] LABS: BACTERIAL VAGINOSIS DNA NEGATIVE (NEGATIVE); CANDIDA GLABRATA DNA NEGATIVE (NEGATIVE); CANDIDA GROUP DNA POSITIVE (NEGATIVE); CANDIDA KRUSEI DNA NEGATIVE (NEGATIVE); TRICHOMONAS VAGINALIS DNA NEGATIVE (NEGATIVE)
== END 2023-09-17 23:59 | disposition home or self-care (01) ==
LOC: LAB.N 08:00
PROVIDERS: ATTEND Physician Assistant
DX: N30.01 Acute cystitis with hematuria (principal); R10.2 Pelvic and perineal pain
CPT/HCPCS: 81514; 87086

== ENCOUNTER 2023-10-07 10:15 | Outpatient (CLI) | payer MEDICARE, MEDICAID ==
[2023-10-07 23:34] LABS: CHLAMYDIA TRACHOMATIS DNA NEGATIVE (NEGATIVE); NEISSERIA GONORRHOEAE DNA NEGATIVE (NEGATIVE)
[2023-10-08 00:44] LABS: BACTERIAL VAGINOSIS DNA POSITIVE (NEGATIVE); CANDIDA GLABRATA DNA NEGATIVE (NEGATIVE); CANDIDA GROUP DNA POSITIVE (NEGATIVE); CANDIDA KRUSEI DNA NEGATIVE (NEGATIVE); TRICHOMONAS VAGINALIS DNA NEGATIVE (NEGATIVE)
== END 2023-10-07 10:30 | disposition home or self-care (01) ==
LOC: LAB.N 10:15
PROVIDERS: ATTEND Family Medicine
DX: R30.0 Dysuria (principal)
CPT/HCPCS: 81514; 87086; 87491; 87591; 87661

== ENCOUNTER 2023-11-08 14:58 | Emergency (ER) | payer MEDICARE, MEDICAID ==
[2023-11-08 15:21] VITALS: BP 125/65; O2SAT 97
[2023-11-08] MEDS: oxyCODONE 5 MG TABLET PO STA (15:40)
[2023-11-08 15:43] LABS: LEUKOCYTE ESTERASE, URINE SMALL (NEGATIVE); NITRITE,URINE POSITIVE (NEGATIVE); OCCULT BLOOD,URINE TRACE-INTA (NEGATIVE)
[2023-11-08 15:49] LABS: CLARITY,URINE HAZY (CLEAR)
[2023-11-08] MEDS: cephALEXin 250 MG CAPSULE PO STA (15:50)
[2023-11-08 15:51] LABS: BACTERIA,URINE Many /HPF (None Seen); SQUAMOUS EPITHELIAL CELL,UR MANY Squamous (<= Few); WBC,URINE >25 /HPF (0-5)
--- NOTE | 2023-11-08 15:51 | ED Physician Documentation ---
History of Present Illness - Stated complaint Stated Complaint: ,STOMACH PX - Chief complaint Chief Complaint: Abd Pain - History obtained from History obtained from: Patient - History of Present Illness Timing: Today Pain level max: 4 Pain level now: 4 - Additonal information Additional information: Patient is a 68-year-old female who presents to the emergency department complaint of dysuria and urinary frequency. Also complains of suprapubic pain. She states that she has a longstanding history of recurrent bladder infections and that this feels similar. No vaginal discharge or itching. Worse with urination, better with Azo. No fevers. No chills. No nausea or vomiting. No other abdominal pain. Patient states that the symptoms are typical of her UTI. 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 cysts : Kidney stones HEENT: None Psych: Depression, Anxiety Musculoskeletal: Osteoarthritis Derm: None - Past Surgical History Past Surgical History: Yes General: Other Ortho: 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 HEENT: Cataracts, Tonsil/Adenoidectomy - Present Medications Home Medications: Ambulatory Orders Medication Instructions Recorded Confirmed Nitrofurantoin [Macrobid] 100 mg ORAL BID 04/18/23 04/18/23 polyethylene glycoL 3350(BULK) 17 gm PO DAILY PRN #1 each 04/18/23 [Miralax] Clotrimazole/Betamethasone Crm 1 applic TOP BID #45 gm 05/04/23 [Lotrisone Cream] Azithromycin [Zithromax] 250 mg PO DAILY #6 tablet 07/24/23 Mupirocin 1 gm TP BID #22 gm 07/24/23 cephALEXin [Keflex] 500 mg PO Q6H #20 cap 11/08/23 - Allergies Allergies/Adverse Reactions: Allergies Allergy/AdvReac Type Severity Reaction Status Date / Time paroxetine HCl * [From Paxil] AdvReac Intermediate "like im Verified 11/08/23 15:16 crawling out of my skin" escitalopram oxalate * AdvReac Headache Verified 11/08/23 15:16 [From Lexapro] - Social History Does the pt smoke?: No Smoking Status: Never smoker Does the pt drink ETOH?: No Does the pt have substance abuse?: No - Immunizations Immunizations are current?: Yes - POLST Patient has POLST: No PD ED PE NORMAL - Vitals Vital signs reviewed: Yes - General General: Alert and oriented X 3, No acute distress - HEENT HEENT: Moist mucous membranes - Neck Neck: Supple, no meningeal sign - Cardiac Cardiac: RRR, Strong equal pulses - Respiratory Respiratory: No respiratory distress, Clear bilaterally - Abdomen Abdomen: Soft, Non tender, Non distended - Back Back: No CVA TTP, No spinal TTP - Derm Derm: Warm and dry - Neuro Neuro: Alert and oriented X 3 - Psych Psych: Normal mood, Normal affect Results - Vitals Vitals: Vital Signs - 24 hr 11/08/23 11/08/23 15:14 15:16 Temperature 36.6 C 36.6 C Heart Rate 77 77 Respiratory 18 18 Rate Blood Pressure 125/65 125/65 O2 Saturation 97 97 Oxygen O2 Source Room air - Labs Labs: Laboratory Tests 11/08/23 15:30 Urine Color ORANGE Urine Clarity HAZY Urine pH TNP Ur Specific [place] TNP Urine Protein TNP Urine Glucose (UA) TNP Urine Ketones TNP Urine Occult Blood TRACE-INTA Urine Nitrite POSITIVE H Urine Bilirubin TNP Urine Urobilinogen TNP Ur Leukocyte Esterase SMALL H Urine RBC 6-10 H Urine WBC >25 H Ur Squamous Epith Cells MANY Squamous H Urine Bacteria Many H Ur Microscopic Review INDICATED Urine Culture Comments NOT INDICATED PD Medical Decision Making - ED course Complexity details: reviewed results, re-evaluated patient, considered differential, d/w patient ED course: Patient is well-appearing, nontoxic. Afebrile. No CVA tenderness. No evidence of pyelonephritis or sepsis. Symptoms consistent with her usual UTI. Will place on antibiotics for home. Patient did take Azo last night. Patient counseled regarding signs and symptoms for which I believe and urgent re- evaluation would be necessary. Patient with good understanding of and agreement to plan and is comfortable going home at this time This document was made in part using voice recognition software. While efforts are made to proofread this document, sound alike and grammatical errors may occur. Departure - Departure Disposition: 01 Home, Self Care Clinical Impression: Urinary tract infection Qualifiers: Urinary tract infection type: acute cystitis Hematuria presence: without hematu edyta Qualified Code(s): N30.00 - Acute cystitis without hematuria Condition: Good Instructions: ED UTI Cystitis Female Follow-Up: Ernestine Wilkinson MD [Primary Care Provider] - Within 1 week Prescriptions: cephALEXin [Keflex] 500 mg PO Q6H #20 cap Comments: Take all antibiotics until gone. Please follow-up with your doctor for further care. They may want to refer you to the urogynecologist to evaluate for your recurrent UTIs. You can ask your doctor for referral to the urogynecologist. Your prescription was sent to [facility] in [place] Anjelica Taylor MD, FACOG Urogynecology 4.8 Accepting New Patients [facility] [employer] CE[employer] TECHN[employer] [facility] [address] [place] [id number] Forms: PCP List Discharge Date/Time: 11/08/23 15:53
== END 2023-11-08 15:53 | disposition home or self-care (01) ==
LOC: ED 14:58
DX: N30.00 Acute cystitis without hematuria (principal); Z87.440 Personal history of urinary (tract) infections; Z79.899 Other long term (current) drug therapy
CPT/HCPCS: 81001; 99283; A9270; 80053; 81003; 83690; 85025; 87086

== ENCOUNTER 2023-12-22 08:30 | Outpatient (CLI) | payer MEDICARE, MEDICAID ==
[2023-12-22 12:30] LABS: BASOPHILS % (AUTO) 0.7 %; EOSINOPHILS # (AUTO) 0.3 10^3/uL (0.0-0.7); EOSINOPHILS % (AUTO) 5.9 %; HCT - HEMATOCRIT 43.6 % (37.0-47.0); LYMPHOCYTES # (AUTO) 2.8 10^3/uL (1.5-3.5); LYMPHOCYTES % (AUTO) 50.4 %; MEAN CORPUSCULAR HGB CONC 32.1 g/dL (32.0-36.0); MEAN CORPUSCULAR VOLUME 90.3 fL (81.0-99.0); MEAN PLATELET VOLUME 10.1 fL (7.9-10.8); MONOCYTES # (AUTO) 0.4 10^3/uL (0.0-1.0); MONOCYTES % (AUTO) 7.1 %; NEUTROPHILS % (AUTO) 35.7 %; PLT - PLATELET COUNT 296 10^3/uL (130-450); RED BLOOD COUNT 4.83 10^6/uL (4.20-5.40); RED CELL DISTRIBUTION WIDTH 13.7 % (12.0-15.0); WHITE BLOOD COUNT 5.5 x10^3/uL (4.8-10.8)
[2023-12-22 12:49] LABS: ALBUMIN 4.1 g/dL (3.2-5.5); ALBUMIN/GLOBULIN RATIO 1.1 (1.0-2.2); BILIRUBIN,TOTAL 0.5 mg/dL (0.2-1.0); CALCIUM 9.6 mg/dL (8.5-10.3); CREATININE 0.7 mg/dL (0.6-1.3); POTASSIUM 4.2 mmol/L (3.5-4.5)
[2023-12-22 12:58] LABS: THYROID STIMULATING HORMONE 2.25 uIU/mL (0.34-5.60)
== END 2023-12-22 08:45 | disposition home or self-care (01) ==
LOC: LAB.N 08:30
PROVIDERS: ATTEND Physician Assistant Medical
DX: R10.31 Right lower quadrant pain (principal); R53.83 Other fatigue
CPT/HCPCS: 36415; 80053; 82150; 83690; 84443; 85025

== ENCOUNTER 2024-01-29 08:00 | Outpatient (CLI) | payer MEDICARE, MEDICAID | END 2024-01-29 23:59 | disposition home or self-care (01) | LOC: LAB.N 08:00 | PROVIDERS: ATTEND Physician Assistant Medical | DX: N39.0 Urinary tract infection, site not specified (principal) | CPT/HCPCS: 87077; 87086; 87181 ==

== ENCOUNTER 2024-02-24 08:00 | Outpatient (CLI) | payer MEDICARE, MEDICAID | END 2024-02-24 23:59 | disposition home or self-care (01) | LOC: LAB 08:00 | PROVIDERS: ATTEND Urology | DX: R30.0 Dysuria (principal) | CPT/HCPCS: 87077; 87086; 87181 ==

== ENCOUNTER 2024-03-06 12:15 | Outpatient (CLI) | payer MEDICARE, MEDICAID ==
--- NOTE | 2024-03-06 16:21 | XRAY Report ---
PROCEDURE: Ribs w/PA Chest 3+V RT INDICATIONS: RIB PAIN, RIGHT SIDED TECHNIQUE: 2 views of the ribs were acquired, along with a single view chest. COMPARISON: None. FINDINGS: Surgical changes and devices: None. Bones and chest wall: No fractures or dislocations. No suspicious bony lesions. Overlying soft tis sues appear unremarkable. Lungs and pleura: No pleural effusions or pneumothorax. Lungs appear clear. Mediastinum: Cardiac silhouette is top normal in size. IMPRESSION: No displaced rib fracture or pneumothorax. Reviewed by: Braden Roa MD on 03/06/2024 4:20 PM PDT Approved by: Braden Roa MD on 03/06/2024 4:20 PM PDT Station ID: [id number]
== END 2024-03-06 12:30 | disposition home or self-care (01) ==
LOC: DI.N 12:15
PROVIDERS: ATTEND Physician Assistant Medical
DX: R07.81 Pleurodynia (principal)

== ENCOUNTER 2024-03-15 10:00 | Emergency (ER) | payer MEDICARE, MEDICAID ==
[2024-03-15 10:58] LABS: BASOPHILS % (AUTO) 0.5 %; EOSINOPHILS # (AUTO) 0.3 10^3/uL (0.0-0.7); EOSINOPHILS % (AUTO) 4.4 %; HCT - HEMATOCRIT 43.1 % (37.0-47.0); HGB - HEMOGLOBIN 13.9 g/dL (12.0-16.0); LYMPHOCYTES # (AUTO) 2.6 10^3/uL (1.5-3.5); LYMPHOCYTES % (AUTO) 45.8 %; MEAN CORPUSCULAR HEMOGLOBIN 29.3 pg (27.0-31.0); MEAN CORPUSCULAR HGB CONC 32.3 g/dL (32.0-36.0); MEAN CORPUSCULAR VOLUME 90.9 fL (81.0-99.0); MEAN PLATELET VOLUME 9.1 fL (7.9-10.8); MONOCYTES # (AUTO) 0.5 10^3/uL (0.0-1.0); NEUTROPHILS # (AUTO) 2.3 10^3/uL (1.5-6.6); NEUTROPHILS % (AUTO) 41.3 %; PLT - PLATELET COUNT 278 10^3/uL (130-450); RED BLOOD COUNT 4.74 10^6/uL (4.20-5.40); RED CELL DISTRIBUTION WIDTH 14.9 % (12.0-15.0); WHITE BLOOD COUNT 5.6 x10^3/uL (4.8-10.8)
[2024-03-15] MEDS: LIDOCAINE VISCOUS 2% 15 ML UDC MM STA (11:06)
[2024-03-15] MEDS: MAG HYDROX/AL HYDROX/SIMETH 30 ML UDC PO STA (11:06)
[2024-03-15] MEDS: FAMOTIDINE 20 MG TABLET PO STA (11:07)
[2024-03-15] MEDS: SUCRALFATE 1 GM/10 ML UDC PO STA (11:07)
--- NOTE | 2024-03-15 11:07 | ED Physician Documentation ---
PD HPI ABD PAIN - Stated complaint Stated Complaint: AB PX - Chief complaint Chief Complaint: Abd Pain - History obtained from History obtained from: Patient - History of Present Illness Pain level max: 5 Pain level now: 5 Quality: Aching Location: Epigastric, Periumbilical Radiation: No: Chest, , Lower back, Left flank, Left shoulder, Right flank, Right shoulder, Upper back Improved by: Meds (tylenol) Worsened by: Palpation Associated symptoms: No: Fever, Hematemesis, Constipation - Additional information Additional information: Patient is a 68-year-old female with a history of longstanding chronic abdominal pain. She states that she started having pain again 2 to 3 days ago. She has not had any nausea or vomiting. No fevers or chills. She has had extensive workups in the past for this and no cause found. She states she does have recurrent UTIs. No blood in the stool. She states she took Tylenol which helped but then the pain came back again. 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: Ovarian cysts : Kidney stones HEENT: None Psych: Depression, Anxiety Musculoskeletal: Osteoarthritis Derm: None - Past Surgical History Past Surgical History: Yes General: Other Ortho: 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 HEENT: Cataracts, Tonsil/Adenoidectomy - Present Medications Home Medications: Ambulatory Orders Medication Instructions Recorded Confirmed Acyclovir 400 mg PO BID 03/15/24 03/15/24 Estradiol [Estrace] 1 applic TOP DAILY 03/15/24 03/15/24 Nitrofurantoin Macrocrystal 100 mg PO DAILY 03/15/24 03/15/24 [Macrodantin] Nitrofurantoin [Macrobid] 100 mg PO BID #10 cap 03/15/24 - Allergies Allergies/Adverse Reactions: Allergies Allergy/AdvReac Type Severity Reaction Status Date / Time paroxetine HCl * [From Paxil] AdvReac Intermediate "like im Verified 03/15/24 10:39 crawling out of my skin" escitalopram oxalate * AdvReac Headache Verified 03/15/24 10:39 [From Lexapro] - Social History Does the pt smoke?: No Smoking Status: Never smoker Does the pt drink ETOH?: No Does the pt have substance abuse?: No - Immunizations Immunizations are current?: Yes - POLST Patient has POLST: No PD ED PE NORMAL - Vitals Vital signs reviewed: Yes - General General: Alert and oriented X 3, No acute distress - HEENT HEENT: Moist mucous membranes - Cardiac Cardiac: RRR, Strong equal pulses - Respiratory Respiratory: No respiratory distress, Clear bilaterally - Abdomen Abdomen: Soft, Non tender, Non distended, Other (Mild tenderness to palpation epigastric. No peritoneal signs.) - Derm Derm: Warm and dry - Neuro Neuro: Alert and oriented X 3 - Psych Psych: Normal mood, Normal affect Results - Vitals Vitals: Vital Signs - 24 hr 03/15/24 03/15/24 10:34 12:39 Temperature 36.1 C L Heart Rate 60 58 L Respiratory 16 16 Rate Blood Pressure 116/58 L 114/64 O2 Saturation 98 99 Oxygen O2 Source Room air - Labs Labs: Laboratory Tests 03/15/24 03/15/24 03/15/24 10:48 10:48 11:00 WBC 5.6 RBC 4.74 Hgb 13.9 Hct 43.1 MCV 90.9 MCH 29.3 MCHC 32.3 RDW 14.9 Plt Count 278 MPV 9.1 Neut # (Auto) 2.3 Lymph # (Auto) 2.6 [place] # (Auto) 0.5 Eos # (Auto) 0.3 Baso # (Auto) 0.0 Absolute Nucleated RBC 0.00 Nucleated RBC % 0.0 Sodium 136 Potassium 4.2 Chloride 104 Carbon Dioxide 28 Anion Gap 4.0 L BUN 15 Creatinine 0.7 Estimated GFR (MDRD) 83 L Glucose 100 Calcium 9.6 Total Bilirubin 0.5 AST 30 ALT 29 Alkaline Phosphatase 119 Total Protein 7.9 Albumin 4.3 Globulin 3.6 Albumin/Globulin Ratio 1.2 Lipase 31 Urine Color YELLOW Urine Clarity CLOUDY Urine pH 6.0 Ur Specific [place] 1.025 Urine Protein NEGATIVE Urine Glucose (UA) NEGATIVE Urine Ketones NEGATIVE Urine Occult Blood NEGATIVE Urine Nitrite POSITIVE H Urine Bilirubin NEGATIVE Urine Urobilinogen 0.2 (NORMAL) Ur Leukocyte Esterase NEGATIVE Urine RBC None Seen Urine WBC 6-10 H Ur Squamous Epith Cells MANY Squamous H Urine Bacteria Moderate H Ur Microscopic Review INDICATED Urine Culture Comments NOT INDICATED PD Medical Decision Making - ED course Complexity details: reviewed results, re-evaluated patient, considered differential, d/w patient ED course: Patient is well-appearing, nontoxic. Afebrile. Abdomen is soft, nontender nondistended on serial examination. No significant lab abnormalities. Has a chronic UTI, based on past cultures, we will place her on Macrobid. Will have her follow-up with her doctor for further care and evaluation. Tolerating p.o. without difficulty here. No indication for imaging at this time. Patient counseled regarding signs and symptoms for which I believe and urgent re- evaluation would be necessary. Patient with good understanding of and agreement to plan and is comfortable going home at this time This document was made in part using voice recognition software. While efforts are made to proofread this document, sound alike and grammatical errors may occur. Departure - Departure Disposition: 01 Home, Self Care Clinical Impression: Abdominal pain Urinary tract infection Qualifiers: Urinary tract infection type: acute cystitis Hematuria presence: without hematuria Qualified Code(s): N30.00 - Acute cystitis without hematuria Condition: Good Instructions: ED UTI Cystitis Female Follow-Up: Ernestine Wilkinson MD [Primary Care Provider] - Within 1 week Prescriptions: Nitrofurantoin [Macrobid] 100 mg PO BID #10 cap Comments: Your prescription was sent to [facility] in [place]. Please take all medications until gone and follow-up with your doctor for further care. Your laboratory testing does not show any acute abnormalities today. Please return if you worsen. Forms: PCP List Discharge Date/Time: 03/15/24 13:36
[2024-03-15 11:13] LABS: ALBUMIN 4.3 g/dL (3.2-5.5); ALBUMIN/GLOBULIN RATIO 1.2 (1.0-2.2); BILIRUBIN,TOTAL 0.5 mg/dL (0.2-1.0); CALCIUM 9.6 mg/dL (8.5-10.3); CREATININE 0.7 mg/dL (0.6-1.3); POTASSIUM 4.2 mmol/L (3.5-4.5); TOTAL PROTEIN 7.9 g/dL (6.4-8.9)
[2024-03-15 11:19] LABS: BILIRUBIN,URINE NEGATIVE (NEGATIVE); GLUCOSE, URINE (UA) NEGATIVE (NEGATIVE); KETONES,URINE (UA) NEGATIVE (NEGATIVE); LEUKOCYTE ESTERASE, URINE NEGATIVE (NEGATIVE); NITRITE,URINE POSITIVE (NEGATIVE); OCCULT BLOOD,URINE NEGATIVE (NEGATIVE); PROTEIN,URINE NEGATIVE (NEGATIVE); UROBILINOGEN,URINE 0.2 (NORMAL) E.U./dL (NORMAL)
[2024-03-15 11:23] LABS: CLARITY,URINE CLOUDY (CLEAR)
[2024-03-15 11:30] LABS: BACTERIA,URINE Moderate /HPF (None Seen); RBC,URINE None Seen /HPF (0-5); SQUAMOUS EPITHELIAL CELL,UR MANY Squamous (<= Few)
[2024-03-15 13:12] VITALS: BP 114/64; O2SAT 99
== END 2024-03-15 13:36 | disposition home or self-care (01) ==
LOC: ED 10:00
DX: N30.00 Acute cystitis without hematuria (principal); Z87.11 Personal history of peptic ulcer disease; Z87.442 Personal history of urinary calculi
CPT/HCPCS: 36415; 80053; 81001; 83690; 85025; 99283; A9270; 81003; 87086

== ENCOUNTER 2024-03-24 08:00 | Outpatient (CLI) | payer MEDICARE, MEDICAID | END 2024-03-24 23:59 | disposition home or self-care (01) | LOC: LAB.N 08:00 | PROVIDERS: ATTEND Family Medicine | DX: R30.0 Dysuria (principal) | CPT/HCPCS: 87077; 87086; 87181 ==

== ENCOUNTER 2024-04-01 08:00 | Outpatient (CLI) | payer MEDICARE, MEDICAID ==
[2024-04-01 22:44] LABS: BACTERIAL VAGINOSIS DNA NEGATIVE (NEGATIVE); CANDIDA GLABRATA DNA NEGATIVE (NEGATIVE); CANDIDA GROUP DNA POSITIVE (NEGATIVE); CANDIDA KRUSEI DNA NEGATIVE (NEGATIVE); TRICHOMONAS VAGINALIS DNA NEGATIVE (NEGATIVE)
== END 2024-04-01 23:59 | disposition home or self-care (01) ==
LOC: LAB.N 08:00
PROVIDERS: ATTEND Nurse Practitioner
DX: R10.2 Pelvic and perineal pain (principal); L29.8 Other pruritus
CPT/HCPCS: 81514; 87077; 87086; 87181

== ENCOUNTER 2024-04-05 19:05 | Emergency (ER) | payer MEDICARE, MEDICAID ==
--- NOTE | 2024-04-05 19:25 | ED Physician Documentation ---
History of Present Illness - Stated complaint Stated Complaint: ABD PX - Chief complaint Chief Complaint: Abd Pain - Additonal information Additional information: 69-year-old female with history of frequent UTI, seizure-like activity, vertigo, GERD, pancreatitis, yeast infection, vaginitis, vulvovaginitis presents with lower abdominal pain. She states that she has intermittently been having lower abdominal pain for a long time, but worsened in the last day. She denies fevers, chills, nausea or vomiting, dysuria, hematuria, urinary frequency, rash or lesions, vaginal bleeding or discharge, diarrhea or constipation, prior abdominal surgeries, trauma, anticoagulation, or other changes. Her son drove her, and she would prefer narcotic pain medications. Per chart view, patient was seen in the ER earlier in March With longstanding chronic abdominal pain, with prior extensive workups. She was given Macrobid course at that time. She is supposed to be seen by Dr. Yancey on 04/17 for pelvic pain. ROS Constitutional: no fever, no chills Eyes: no visual disturbance, no discharge Ears, Nose, Mouth, Throat: no rhinorrhea, no sore throat Cardiovascular: no chest pain, no palpitations Respiratory: no cough, no shortness of breath Gastrointestinal: +abdominal pain, no vomiting, no diarrhea Genitourinary: no dysuria, no hematuria Musculoskeletal: no back pain, no neck stiffness Skin: no rash, no wound Neurological: no focal weakness, no focal numbness PD PAST MEDICAL HISTORY - Past Medical History Cardiovascular: Arrhythmia Respiratory: Pneumonia Neuro: Headaches Endocrine/Autoimmune: None GI: Ulcers 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: Ovarian cysts : Kidney stones HEENT: None Psych: Depression, Anxiety Musculoskeletal: Osteoarthritis Derm: None - Past Surgical History Past Surgical History: Yes General: Other Ortho: Other /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: section HEENT: Cataracts, Tonsil/Adenoidectomy - Present Medications Home Medications: Ambulatory Orders Medication Instructions Recorded Confirmed Acyclovir 400 mg PO BID 03/15/24 03/15/24 Estradiol [Estrace] 1 applic TOP DAILY 03/15/24 03/15/24 Nitrofurantoin Macrocrystal 100 mg PO DAILY 03/15/24 03/15/24 [Macrodantin] Nitrofurantoin [Macrobid] 100 mg PO BID #10 cap 03/15/24 Phenazopyridine [Pyridium] 100 mg PO TID PRN #8 tablet 04/05/24 cephALEXin [Keflex] 500 mg PO Q6H #28 cap 04/05/24 - Allergies Allergies/Adverse Reactions: Allergies Allergy/AdvReac Type Severity Reaction Status Date / Time paroxetine HCl * [From Paxil] AdvReac Intermediate "like im Verified 04/05/24 19:15 crawling out of my skin" escitalopram oxalate * AdvReac Headache Verified 04/05/24 19:15 [From Lexapro] - Social History Does the pt smoke?: No Smoking Status: Never smoker Does the pt drink ETOH?: No Does the pt have substance abuse?: No - Immunizations Immunizations are current?: Yes - POLST Patient has POLST: No PD ED PE NORMAL - Free text exam Free text exam: Const: no acute distress, non toxic appearing; calm, conversant, pleasant Eyes: PERRLA, EOMI ENT: mucous membranes moist Neck: supple, non-tender Resp: no respiratory distress, clear to auscultation bilaterally Card: regular rate and rhythm, no murmurs Abd: +mild lower abdominal tenderness, no other abdominal tenderness, no rigidity or rebound or guarding Back: no T or L spine tenderness, no CVA tenderness bilaterally Extrem: no deformities, no swelling bilateral lower extremities, 2+ distal pulses all extremities Neuro: ANOx4, prosthetics 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, grossly intact sensation and strength all extremities Skin: no rash, warm and dry Results - Vitals Vitals: Vital Signs - 24 hr 04/05/24 04/05/24 04/05/24 19:13 19:30 19:33 Temperature 36.3 C L Heart Rate 75 73 67 Respiratory 18 16 18 Rate Blood Pressure 135/115 H 153/83 H 153/83 H O2 Saturation 94 96 97 Oxygen O2 Source Room air - Labs Labs: Laboratory Tests 04/05/24 04/05/24 04/05/24 19:25 19:25 19:28 WBC 8.0 RBC 4.65 Hgb 13.6 Hct 42.0 MCV 90.3 MCH 29.2 MCHC 32.4 RDW 14.2 Plt Count 270 MPV 9.3 Neut # (Auto) 2.6 Lymph # (Auto) 4.7 H [place] # (Auto) 0.5 Eos # (Auto) 0.2 Baso # (Auto) 0.0 Absolute Nucleated RBC 0.00 Nucleated RBC % 0.0 Sodium 140 Potassium 3.5 Chloride 107 Carbon Dioxide 26 Anion Gap 7.0 BUN 8 Creatinine 0.6 Estimated GFR (MDRD) 99 Glucose 99 Calcium 8.6 Total Bilirubin 0.4 AST 34 ALT 33 Alkaline Phosphatase 112 Total Protein 7.4 Albumin 3.9 Globulin 3.5 Albumin/Globulin Ratio 1.1 Lipase 152 H Urine Color YELLOW Urine Clarity CLOUDY Urine pH 6.0 Ur Specific [place] 1.020 Urine Protein NEGATIVE Urine Glucose (UA) NEGATIVE Urine Ketones NEGATIVE Urine Occult Blood SMALL H Urine Nitrite POSITIVE H Urine Bilirubin NEGATIVE Urine Urobilinogen 0.2 (NORMAL) Ur Leukocyte Esterase SMALL H Urine RBC 6-10 H Urine WBC 11-25 H Ur Squamous Epith Cells FEW Squamous Urine Bacteria Many H Ur Microscopic Review INDICATED Urine Culture Comments INDICATED - Rads (name of study) CT A/P with contrast Relevant Findings:: EMP independent interpretation of test, See rad report (I agree with radiology reads of imaging on my independent review of imaging. ), Other PD Medical Decision Making - ED course ED course: This patients presentation is most suggestive of recurrent UTI, pyelonephritis, chronic abdominal pain, no evidence of broad differential including but not limited to diverticulitis, sprain or strain, constipation, nephrolithiasis, far less likely etiologies such as bowel obstruction, malignancy, shingles among others. Out of an abundance of caution, obtaining CT abdomen pelvis with contrast, with CBC, CMP, lipase, urinalysis. I am giving fluids, oxycodone and will closely reassess. Per chart view, I see a CT abdomen pelvis from April 2023 that did not show acute findings at that time, though possible chronic UPJ obstruction to left kidney was seen along with nonobstructive calculi per radiology read. Labs: CBC reassuring, no leukocytosis or anemia or thrombocytopenia. CMP grossly reassuring. Lipase elevated, though not to 3 times upper limit, with no focal epigastric tenderness, arguing against pancreatitis currently. Urine with many bacteria, 11-25 white blood cells, leukocyte esterase, positive nitrates, with small contamination but strongly arguing for urinary tract infection in context. Urine culture sent. Per chart view, urine sample collected 4 days ago showed Klebsiella pneumoniae that was sensitive to cephalosporins. I am ordering Keflex 500 mg p.o., anticipating 4 times daily course x [address] CT: I agree with radiology results below, with copy of read given to patient for follow up "FINDINGS: Image quality: Diagnostic. Lower chest: Unremarkable. Liver: No solid mass. Gallbladder: Normal. Biliary tree: No intrahepatic or extrahepatic dilation, accounting for age. Spleen: No splenomegaly. Pancreas: No pancreatic ductal dilation. Adrenals: No adrenal nodule. Kidneys and ureters: No hydronephrosis but there is a prominent extrarenal pelvis on the left.. No renal cystic lesion which requires follow up. No solid mass. There is a 4 mm nonobstructive lower third renal collecting system calculus on the left. Stomach, bowel and peritoneum: No gastric or small bowel dilation. No abnormal wall thickening. No pathologic free fluid. Lymph nodes: No central or retroperitoneal adenopathy. Vessels: No infrarenal aortic aneurysm. Patent portal vein. PELVIS Reproductive organs: Unremarkable. Bladder: No abnormal wall thickening, accounting for underdistention. Pelvic lymph nodes: No pelvic adenopathy by size criteria. Bones: No aggressive osseous abnormality. Other: No significant ventral or inguinal hernia. Mild left lower quadrant diverticulosis without acute diverticulitis. IMPRESSION: Etiology of lower abdominal pain is not seen. Previously present extrarenal pelvis at the left kidney is noted, and there is a 4 mm nonobstructive left lower third collecting system calculus but no definite urinary tract obstruction is associated. Mild diverticulosis is present at the left lower quadrant but no acute diverticulitis is found. Reviewed by: Rohith Romero MD on 04/05/2024 8:34 PM PDT" Keflex Rx: I prescribed 7d QID 500mg PO, along with phenazopyridine 100 mg p.o. up to 3 times daily for pain. Patient with friend at bedside now, updated fully on results of workup and plan. She feels well, with improved symptoms, no new concerns, understanding plan and return precautions. Discharging in stable condition. On review, most likely diagnosis is UTI. Results of work up today were discussed with the patient. Patient was instructed to follow up on incidental imaging findings with their primary care doctor. Patient ambulatory and tolerating PO. Patient aware they should not drive. Repeat exams and vital signs reassuring. Blood pressure is elevated but suitable for outpatient follow up, with no evidence of hypertensive emergency here clinically. Patient questions answered and plan reviewed. Strong return precautions given. Patient discharged. Departure - Departure Disposition: 01 Home, Self Care Clinical Impression: Abdominal pain Qualifiers: Abdominal location: lower abdomen, unspecified Qualified Code(s): R10.30 - Lower abdominal pain, unspecified Condition: Good Instructions: ED Abdominal Pain Female Non-Specific Abdominal Pain Prescriptions: cephALEXin [Keflex] 500 mg PO Q6H #28 cap Phenazopyridine [Pyridium] 100 mg PO TID PRN #8 tablet PRN Reason: Pain 1-4 Comments: It was a pleasure taking care of you today. It is important to fully read and understand the below. Please ask us if you have any questions. After extensive testing here, you have what looks like another urinary tract infection. A urine culture has been sent. Please follow-up on this with your primary doctor within 48 hours to ensure your antibiotic treatment is effective. I prescribed you 7 days of Keflex to take every 6 hours based on your recent urine cultures as well. You can also take phenazopyridine at home. Please also follow-up on your laboratory workup, such as elevated lipase, and CT results, attached, with your primary doctor. No tests or assessments are perfect, and your condition could roll changer time. If your symptoms change or worsen, it is very important you immediately seek medical care. If you have any new or worsening pain, shortness of breath, fever, vomiting, confusion, numbness, weakness, or anything else that concerns you, please immediately seek medical care. If you have been prescribed any medications: please read the drug package inserts on how to properly use the medication and any potential side effects. If you had labs (blood tests) or imaging (CT scan or x-rays) done during your visit: please follow up on the results of these with your primary care doctor, as discussed. In addition, please know the results we received today may be preliminary. Our usual practice is to follow up on tests within a few days of a patient's discharge from the Emergency Department and notify you of any changes. These may lead to changes to your treatment plan. However, the best way to obtain and interpret these test results is through your Primary Care Provider. If you need to update your contact information, please stop by the dental front office assistant and alert the Registration personnel before you leave the Emergency Department. Thank you for the opportunity to participate in your healthcare. We are always here and happy to see you in the future. --- YOUR IMAGING RESULTS TO DISCUSS WITH YOUR DOCTOR: FINDINGS: Image quality: Diagnostic. Lower chest: Unremarkable. Liver: No solid mass. Gallbladder: Normal. Biliary tree: No intrahepatic or extrahepatic dilation, accounting for age. Spleen: No splenomegaly. Pancreas: No pancreatic ductal dilation. Adrenals: No adrenal nodule. Kidneys and ureters: No hydronephrosis but there is a prominent extrarenal pelvis on the left.. No renal cystic lesion which requires follow up. No solid mass. There is a 4 mm nonobstructive lower third renal collecting system calculus on the left. Stomach, bowel and peritoneum: No gastric or small bowel dilation. No abnormal wall thickening. No pathologic free fluid. Lymph nodes: No central or retroperitoneal adenopathy. Vessels: No infrarenal aortic aneurysm. Patent portal vein. PELVIS Reproductive organs: Unremarkable. Bladder: No abnormal wall thickening, accounting for underdistention. Pelvic lymph nodes: No pelvic adenopathy by size criteria. Bones: No aggressive osseous abnormality. Other: No significant ventral or inguinal hernia. Mild left lower quadrant diverticulosis without acute diverticulitis. IMPRESSION: Etiology of lower abdominal pain is not seen. Previously present extrarenal pelvis at the left kidney is noted, and there is a 4 mm nonobstructive left lower third collecting system calculus but no definite urinary tract obstruction is associated. Mild diverticulosis is present at the left lower quadrant but no acute diverticulitis is found. Reviewed by: Rohith Romero MD on 04/05/2024 8:34 PM PDT Forms: PCP List
[2024-04-05] MEDS: oxyCODONE 5 MG TABLET PO STA (19:30)
[2024-04-05] MEDS: SODIUM CHLORIDE 0.9% 1,000 ML IV STA (19:30)
[2024-04-05 19:32] VITALS: BP 153/83
[2024-04-05 19:32] LABS: BASOPHILS % (AUTO) 0.4 %; EOSINOPHILS # (AUTO) 0.2 10^3/uL (0.0-0.7); EOSINOPHILS % (AUTO) 2.1 %; HGB - HEMOGLOBIN 13.6 g/dL (12.0-16.0); LYMPHOCYTES # (AUTO) 4.7 10^3/uL (1.5-3.5); LYMPHOCYTES % (AUTO) 58.5 %; MEAN CORPUSCULAR HEMOGLOBIN 29.2 pg (27.0-31.0); MEAN CORPUSCULAR HGB CONC 32.4 g/dL (32.0-36.0); MEAN CORPUSCULAR VOLUME 90.3 fL (81.0-99.0); MEAN PLATELET VOLUME 9.3 fL (7.9-10.8); MONOCYTES # (AUTO) 0.5 10^3/uL (0.0-1.0); MONOCYTES % (AUTO) 6.7 %; NEUTROPHILS # (AUTO) 2.6 10^3/uL (1.5-6.6); NEUTROPHILS % (AUTO) 32.2 %; PLT - PLATELET COUNT 270 10^3/uL (130-450); RED BLOOD COUNT 4.65 10^6/uL (4.20-5.40); RED CELL DISTRIBUTION WIDTH 14.2 % (12.0-15.0)
[2024-04-05 19:33] LABS: BILIRUBIN,URINE NEGATIVE (NEGATIVE); GLUCOSE, URINE (UA) NEGATIVE (NEGATIVE); KETONES,URINE (UA) NEGATIVE (NEGATIVE); LEUKOCYTE ESTERASE, URINE SMALL (NEGATIVE); NITRITE,URINE POSITIVE (NEGATIVE); OCCULT BLOOD,URINE SMALL (NEGATIVE); PROTEIN,URINE NEGATIVE (NEGATIVE); UROBILINOGEN,URINE 0.2 (NORMAL) E.U./dL (NORMAL)
[2024-04-05 19:36] LABS: CLARITY,URINE CLOUDY (CLEAR)
[2024-04-05 19:41] VITALS: O2SAT 97
[2024-04-05 19:47] LABS: BACTERIA,URINE Many /HPF (None Seen); SQUAMOUS EPITHELIAL CELL,UR FEW Squamous (<= Few)
[2024-04-05 19:49] LABS: ALBUMIN 3.9 g/dL (3.2-5.5); ALBUMIN/GLOBULIN RATIO 1.1 (1.0-2.2); BILIRUBIN,TOTAL 0.4 mg/dL (0.2-1.0); CALCIUM 8.6 mg/dL (8.5-10.3); CREATININE 0.6 mg/dL (0.6-1.3); POTASSIUM 3.5 mmol/L (3.5-4.5); TOTAL PROTEIN 7.4 g/dL (6.4-8.9)
[2024-04-05] MEDS ORDERED: iohexoL-300 100 ML VIAL ONE (20:06)
[2024-04-05] MEDS: iohexoL-300 100 ML VIAL IVP ONE (20:19)
--- NOTE | 2024-04-05 20:36 | CT Report ---
PROCEDURE: Abdomen/Pelvis W INDICATIONS: lower abdominal pain CONTRAST: 100ml [id number] TECHNIQUE: After the administration of intravenous contrast, a CT scan of the abdomen and pelvis was performed. Images were recorded and evaluated at appropriate window settings. Reformats: coronal and sagittal. F or radiation dose reduction, the following was used: automated exposure control, adjustment of mA and /or kV according to patient size. COMPARISON: Similar CT 07/21/2021. FINDINGS: Image quality: Diagnostic. Lower chest: Unremarkable. Liver: No solid mass. Gallbladder: Normal. Biliary tree: No intrahepatic or extrahepatic dilation, accounting for age. Spleen: No splenomegaly. Pancreas: No pancreatic ductal dilation. Adrenals: No adrenal nodule. Kidneys and ureters: No hydronephrosis but there is a prominent extrarenal pelvis on the left.. No re nal cystic lesion which requires follow up. No solid mass. There is a 4 mm nonobstructive lower third renal collecting system calculus on the left. Stomach, bowel and peritoneum: No gastric or small bowel dilation. No abnormal wall thickening. No pa thologic free fluid. Lymph nodes: No central or retroperitoneal adenopathy. Vessels: No infrarenal aortic aneurysm. Patent portal vein. PELVIS Reproductive organs: Unremarkable. Bladder: No abnormal wall thickening, accounting for underdistention. Pelvic lymph nodes: No pelvic adenopathy by size criteria. Bones: No aggressive osseous abnormality. Other: No significant ventral or inguinal hernia. Mild left lower quadrant diverticulosis without acu te diverticulitis. IMPRESSION: Etiology of lower abdominal pain is not seen. Previously present extrarenal pelvis at the left kidney is noted, and there is a 4 mm nonobstructive left lower third collecting system calculus but no defi nite urinary tract obstruction is associated. Mild diverticulosis is present at the left lower quadra nt but no acute diverticulitis is found. Reviewed by: Rohith Romero MD on 04/05/2024 8:34 PM PDT Approved by: Rohith Romero MD on 04/05/2024 8:34 PM PDT Station ID: [id number]
[2024-04-05] MEDS: cephALEXin 250 MG CAPSULE PO STA (20:43)
== END 2024-04-05 21:23 | disposition home or self-care (01) ==
LOC: ED 19:05
DX: R10.30 Lower abdominal pain, unspecified (principal)
CPT/HCPCS: 36415; 74177; 80053; 81001; 83690; 85025; 87077; 87086; 87181; 99284; A9270; Q9967; 81003

== ENCOUNTER 2024-04-15 18:06 | Emergency (ER) | payer MEDICARE, MEDICAID ==
[2024-04-15 18:30] LABS: BASOPHILS % (AUTO) 0.6 %; EOSINOPHILS # (AUTO) 0.2 10^3/uL (0.0-0.7); EOSINOPHILS % (AUTO) 2.4 %; HGB - HEMOGLOBIN 13.6 g/dL (12.0-16.0); LYMPHOCYTES # (AUTO) 3.9 10^3/uL (1.5-3.5); LYMPHOCYTES % (AUTO) 54.4 %; MEAN CORPUSCULAR HEMOGLOBIN 29.1 pg (27.0-31.0); MEAN CORPUSCULAR HGB CONC 31.6 g/dL (32.0-36.0); MEAN CORPUSCULAR VOLUME 91.9 fL (81.0-99.0); MEAN PLATELET VOLUME 9.3 fL (7.9-10.8); MONOCYTES # (AUTO) 0.5 10^3/uL (0.0-1.0); MONOCYTES % (AUTO) 6.7 %; NEUTROPHILS # (AUTO) 2.6 10^3/uL (1.5-6.6); NEUTROPHILS % (AUTO) 35.8 %; PLT - PLATELET COUNT 290 10^3/uL (130-450); RED BLOOD COUNT 4.68 10^6/uL (4.20-5.40); RED CELL DISTRIBUTION WIDTH 14.2 % (12.0-15.0); WHITE BLOOD COUNT 7.2 x10^3/uL (4.8-10.8)
[2024-04-15 18:41] LABS: BILIRUBIN,URINE NEGATIVE (NEGATIVE); GLUCOSE, URINE (UA) NEGATIVE (NEGATIVE); KETONES,URINE (UA) NEGATIVE (NEGATIVE); LEUKOCYTE ESTERASE, URINE NEGATIVE (NEGATIVE); NITRITE,URINE NEGATIVE (NEGATIVE); OCCULT BLOOD,URINE NEGATIVE (NEGATIVE); PROTEIN,URINE NEGATIVE (NEGATIVE); UROBILINOGEN,URINE 0.2 (NORMAL) E.U./dL (NORMAL)
[2024-04-15 18:42] LABS: CLARITY,URINE HAZY (CLEAR)
[2024-04-15 18:47] LABS: ALBUMIN 4.1 g/dL (3.2-5.5); ALBUMIN/GLOBULIN RATIO 1.2 (1.0-2.2); BILIRUBIN,TOTAL 0.3 mg/dL (0.2-1.0); CALCIUM 9.5 mg/dL (8.5-10.3); POTASSIUM 4.6 mmol/L (3.5-4.5); TOTAL PROTEIN 7.6 g/dL (6.4-8.9)
[2024-04-15 18:51] LABS: BACTERIA,URINE Moderate /HPF (None Seen); RBC,URINE None Seen /HPF (0-5); SQUAMOUS EPITHELIAL CELL,UR MOD Squamous (<= Few); WBC,URINE 0-3 /HPF (0-5)
--- NOTE | 2024-04-15 19:39 | ED Physician Documentation ---
PD HPI ABD PAIN - Stated complaint Stated Complaint: ABD PX - Chief complaint Chief Complaint: Abd Pain - History obtained from History obtained from: Patient - Additional information Additional information: HPI from patient. Patient c/o abdominal pain, RUQ radiating to right flank as well as to anterolateral upper right leg. onset yesterday during light activity. no exacerbating nor ameliorating factors. No change with movement, PO intake. denies n/v, fever, diarrhea. She says she has never had this pain before. She says she has never had abdominal surgery except what sounds (by her description) like an exploratory laparotomy in childhood after injury to check for intrabdominal bleeding. Patient has over 40 [facility] ED visits on [facility] records. She was T+R from this ED twice last month for abd/ symptoms. treated with abx for UTi (completed most recent course and those symptoms resolved). 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: Ovarian cysts : Kidney stones HEENT: None Psych: Depression, Anxiety Musculoskeletal: Osteoarthritis Derm: None - Past Surgical History Past Surgical History: Yes General: Other Ortho: Other /COLOR SPECIALIST: section HEENT: Cataracts, Tonsil/Adenoidectomy - Present Medications Home Medications: Ambulatory Orders Medication Instructions Recorded Confirmed Acyclovir 400 mg PO BID 03/15/24 04/15/24 HYDROcod/ACETAM 5/325 [[place] 5/325] 1 - 2 tablet PO Q6H PRN #14 tablet 04/15/24 - Allergies Allergies/Adverse Reactions: Allergies Allergy/AdvReac Type Severity Reaction Status Date / Time paroxetine HCl * [From Paxil] AdvReac Intermediate "like im Verified 04/15/24 18:10 crawling out of my skin" escitalopram oxalate * AdvReac Headache Verified 04/15/24 18:10 [From Lexapro] - Social History Does the pt smoke?: No Smoking Status: Never smoker Does the pt drink ETOH?: No Does the pt have substance abuse?: No - Immunizations Immunizations are current?: Yes - POLST Patient has POLST: No PD ED PE NORMAL - Vitals Vital signs reviewed: Yes - General General: Alert and oriented X 3, No acute distress, Well developed/nourished - Cardiac Cardiac: RRR, No murmur - Respiratory Respiratory: No respiratory distress, Clear bilaterally - Abdomen Abdomen: Normal bowel sounds, Soft, Non tender, Non distended - Back Back: No CVA TTP - Derm Derm: Normal color, Warm and dry, No rash Results - Vitals Vitals: Vital Signs - 24 hr 04/15/24 22:00 Heart Rate 67 Respiratory 16 Rate Blood Pressure 103/62 O2 Saturation 100 Oxygen O2 Source Room air - Labs Labs: Laboratory Tests 04/15/24 04/15/24 04/15/24 18:21 18:26 18:26 WBC 7.2 RBC 4.68 Hgb 13.6 Hct 43.0 MCV 91.9 MCH 29.1 MCHC 31.6 L RDW 14.2 Plt Count 290 MPV 9.3 Neut # (Auto) 2.6 Lymph # (Auto) 3.9 H [place] # (Auto) 0.5 Eos # (Auto) 0.2 Baso # (Auto) 0.0 Absolute Nucleated RBC 0.00 Nucleated RBC % 0.0 Sodium 136 Potassium 4.6 H Chloride 103 Carbon Dioxide 29 Anion Gap 4.0 L BUN 13 Creatinine 1.0 Estimated GFR (MDRD) 55 L Glucose 89 Calcium 9.5 Total Bilirubin 0.3 AST 26 ALT 24 Alkaline Phosphatase 89 Total Protein 7.6 Albumin 4.1 Globulin 3.5 Albumin/Globulin Ratio 1.2 Lipase 49 Urine Color YELLOW Urine Clarity HAZY Urine pH 6.0 Ur Specific [place] 1.010 Urine Protein NEGATIVE Urine Glucose (UA) NEGATIVE Urine Ketones NEGATIVE Urine Occult Blood NEGATIVE Urine Nitrite NEGATIVE Urine Bilirubin NEGATIVE Urine Urobilinogen 0.2 (NORMAL) Ur Leukocyte Esterase NEGATIVE Urine RBC None Seen Urine WBC 0-3 Ur Squamous Epith Cells MOD Squamous H Urine Bacteria Moderate H Ur Microscopic Review INDICATED Urine Culture Comments NOT INDICATED - Rads (name of study) RUQ US Relevant Findings:: Prelim report reviewed, See rad report PD Medical Decision Making - ED course Complexity details: reviewed old records, reviewed results, re-evaluated patient, considered differential, d/w patient ED course: No concerning nor diagnostic findings on CBC, ER abdominal panel including normal LFTs and normal lipase. minimal hyperkalemia noted (4.6). UA with moderate bacteria but moderate squamous cells and no other abnormalities (thus bacteria is highly likely a contaminant). RUQ US shows contracted gallbladder; there is a 3-4mm echogenic focus with differential including GB wall polyp or focus of GB sludge. Unlikely, though possible, that this is causing/contributing to symptoms. Further study (such as HIDA) might be useful in outpatient setting should symptoms persist/recur. Etiology of symptoms is not apparent at this time. results d/w patient, return precautions reviewed. she is given 30mg IM toradol in ED. advised to contact PCP when office is next open (presumably Wednesday) without fail to arrange for next available appointment for follow up/reevaluation Departure - Departure Disposition: Home, Self Care Clinical Impression: Abdominal pain Qualifiers: Abdominal location: right upper quadrant Qualified Code(s): R10.11 - Right upper quadrant pain Condition: Good Instructions: ED Abdominal Pain Female Non-Specific Abdominal Pain, ED Flank Pain Uncertain Cause Follow-Up: Ernestine Wilkinson MD [Primary Care Provider] - Prescriptions: HYDROcod/ACETAM 5/325 [[place] 5/325] 1 - 2 tablet PO Q6H PRN #14 tablet PRN Reason: Pain Comments: There were no concerning nor diagnostic findings on tonight's tests including the blood tests, urinalysis. The gallbladder ultrasound was mostly unremarkable except for a very small (3 to 4 mm) focus that is of unclear significance. Possible explanations for this finding include a gallbladder polyp or a focus of bile sludge (sludge is the precursor to gallstones). While this might be an incidental and overall unconcerning finding, I recommend that you contact your primary care provider when they are next open to arrange for the next available appointment to discuss not only your symptoms but whether further testing regarding this ultrasound finding is warranted. I have electronically submitted a prescription for Vicodin (narcotic/opiate pain medication) to the [facility] pharmacy in [place]. I am prescribing a short course of narcotic pain medication for you. These are potentially dangerous and addictive medications that should be used carefully. These medications may constipate you. Take an [id number] stool softener (docusate) twice daily with plenty of water while taking these medications. If you go 24 hours without a bowel movement, take [id number] miralax, per package instructions. Do not drink or drive while taking these medications. If you received narcotic or sedating medications while in the emergency department, do not drive for 24 hours. Store this medication in a safe, secure place and out of reach of children. It is a violation of federal law to give or sell this medication to another person or to use in a manner other than prescribed. The ED will not refill narcotic prescriptions, including prescriptions lost or stolen. To dispose of unwanted medications: 1. [facility] at [address] in [facility] has a medication drop box. They accept prescription medications (in pill form) Wednesday through Wednesday 9:00 a.m. to 5:00 p.m. 2. [facility] accepts prescription medications (in pill form only) for disposal year round. Call for more information. 3. Contact the [facility] for the next [facility] sponsored prescription drug collection event. , [phone], or [phone]; Note that many narcotic pain relievers also contain Tylenol/acetaminophen. Please ensure that your total dose of acetaminophen from all sources does not exceed 3 g (3000 mg) per day. Discharge Date/Time: 04/15/24 22:39
[2024-04-15] MEDS: KETOROLAC 30 MG/ML VIAL IM STA (20:07)
[2024-04-15 20:20] VITALS: O2SAT 100
--- NOTE | 2024-04-15 21:43 | Ultrasound Report ---
PROCEDURE: Abdomen Limited INDICATIONS: RUQ pain TECHNIQUE: Real-time focused scanning was performed of the abdomen, with image documentation. COMPARISONS: CT abdomen pelvis 04/05/2024. FINDINGS: Liver: Liver is normal in size and homogeneous in echotexture. Gallbladder: There is an echogenic focus measuring 3-4 mm within the gallbladder. Gallbladder is cont racted without wall thickening or pericholecystic fluid. Biliary ducts: Intrahepatic bile ducts are non-dilated. Extrahepatic bile duct caliber measures 4.1 mm. Normal is 6-7 mm or less in diameter, or 10 mm or less post-cholecystectomy. Pancreas: Visualized portions of the pancreas are sonographically normal. Right kidney: Normal in size and echotexture. Right kidney measures 10.6 cm long. No hydronephrosis or nephrolithiasis. No solid masses. No complex renal cystic lesions which require follow-up. IVC: Intrahepatic inferior vena cava is patent. Miscellaneous: No free abdominal fluid. IMPRESSION: Contracted gallbladder with 3-4mm echogenic, no wall thickening or pericholecystic fluid. Findings ma y represent adherent sludge ball versus polyp. No sonographic evidence of acute cholecystitis. Reviewed by: Rebecca Saravia MD, PhD on 04/15/2024 9:41 PM PDT Approved by: Rebecca Saravia MD, PhD on 04/15/2024 9:41 PM PDT Station ID: [id number]
[2024-04-15 22:16] VITALS: BP 103/62
[2024-04-15] MEDS: HYDROcod/ACETAM 5/325 MG TABLET PO STA (22:38)
== END 2024-04-15 22:39 | disposition home or self-care (01) ==
LOC: ED 18:06
DX: R10.11 Right upper quadrant pain (principal); E87.5 Hyperkalemia
CPT/HCPCS: 36415; 76705; 80053; 81001; 83690; 85025; 96372; 99284; A9270; 81003; 87086

== ENCOUNTER 2024-04-17 10:46 | Outpatient (CLI) | payer MEDICARE, MEDICAID ==
--- NOTE | 2024-04-17 15:24 | Ultrasound Report ---
PROCEDURE: Pelvic w/Transvaginal INDICATIONS: PELVIC PAIN TECHNIQUE: Real-time scanning was performed of the pelvic organs, with image documentation. Additional endovagi nal scanning was necessary due to incomplete visualization of the adnexal and endometrial structures by transabdominal scanning. COMPARISON: CT abdomen/pelvis 04/05/2024 FINDINGS: Uterus: Uterus is anteverted and normal in size at 4.7 x 2.6 x 3.8 cm. The myometrium is heterogene ous. The endometrium measures 6.6 mm in combined thickness, which is considered normal in the absenc e of postmenopausal bleeding. Ovaries: Ovaries are not visualized. No adnexal mass identified. Other: No pathologic free abdominal or pelvic fluid. IMPRESSION: No source for pelvic pain identified sonographically. Reviewed by: Micheal Celeste MD on 04/17/2024 2:22 PM PATEL Approved by: Micheal Celeste MD on 04/17/2024 2:22 PM PATEL Station ID: [id number]
== END 2024-04-17 10:47 | disposition home or self-care (01) ==
LOC: DI 10:46
PROVIDERS: ATTEND Family Medicine
DX: R10.2 Pelvic and perineal pain (principal)